=== PATIENT | female | born 1945 | race Caucasian/White ===

== ENCOUNTER 2017-01-17 12:10 | Outpatient (CLI) | payer MEDICARE, OTHER | END 2017-01-17 12:11 | disposition home or self-care (01) | DX: E11.65 Type 2 diabetes mellitus with hyperglycemia (principal) ==

== ENCOUNTER 2017-07-02 13:01 | Emergency (ER) | payer MEDICARE, OTHER ==
--- NOTE | 2017-07-02 14:32 | XRAY Preliminary Report ---
Exam: XR Chest 1 View IMPRESSION: Cardiomegaly. Lungs unchanged. [facility] SITE ID: [id number]
--- NOTE | 2017-07-02 14:34 | XRAY Report ---
EXAM: CHEST RADIOGRAPHY EXAM DATE: 07/02/2017 02:02 PM. CLINICAL HISTORY: Left shoulder pain, SOA. COMPARISON: 11/05/2010. TECHNIQUE: 1 view. FINDINGS: Lungs/Pleura: No significant change. No developing consolidation or edema. Negative for pneumothorax. Mediastinum: Cardiac silhouette is enlarged but unchanged. Other: None. IMPRESSION: Cardiomegaly. Lungs unchanged. [facility] Referring Provider Line: [phone] SITE ID: [id number]
[2017-07-02] MEDS ORDERED: KETOROLAC 60 MG/2 ML VIAL IM STA (14:53)
[2017-07-02] MEDS ORDERED: ONDANSETRON ODT 4 MG TABLET TL STA (14:53)
[2017-07-02] MEDS ORDERED: ACETAMINOPHEN 325 MG TABLET PO STA (14:54)
[2017-07-02] MEDS ORDERED: DEXAMETHASONE 10 MG/ML VIAL PO STA (14:54)
[2017-07-02] MEDS ORDERED: ACETAMINOPHEN 325 MG TABLET PO ONE (15:02)
[2017-07-02] MEDS ORDERED: ONDANSETRON ODT 4 MG TABLET ONE (15:02)
[2017-07-02] MEDS ORDERED: CHERRY SYRUP 10 ML UDC PO ONE (15:03)
[2017-07-02] MEDS ORDERED: DEXAMETHASONE 10 MG/ML VIAL ONE (15:03)
[2017-07-02] MEDS ORDERED: KETOROLAC 60 MG/2 ML VIAL ONE (15:03)
[2017-07-02 15:13] LABS: BASOPHILS # (AUTO) 0.1 10^3/uL (0.0-0.1); BASOPHILS % (AUTO) 0.9 %; EOSINOPHILS # (AUTO) 0.3 10^3/uL (0.0-0.7); EOSINOPHILS % (AUTO) 3.9 %; HCT - HEMATOCRIT 38.9 % (37.0-47.0); HGB - HEMOGLOBIN 12.7 g/dL (12.0-16.0); LYMPHOCYTES # (AUTO) 1.6 10^3/uL (1.5-3.5); LYMPHOCYTES % (AUTO) 20.4 %; MEAN CORPUSCULAR HEMOGLOBIN 31.9 pg (27.0-31.0); MEAN CORPUSCULAR HGB CONC 32.7 g/dL (32.0-36.0); MEAN CORPUSCULAR VOLUME 97.4 fL (81.0-99.0); MEAN PLATELET VOLUME 7.3 fL (7.9-10.8); MONOCYTES # (AUTO) 0.8 10^3/uL (0.0-1.0); MONOCYTES % (AUTO) 10.5 %; NEUTROPHILS # (AUTO) 4.9 10^3/uL (1.5-6.6); NEUTROPHILS % (AUTO) 64.3 %; RED CELL DISTRIBUTION WIDTH 15.1 % (12.0-15.0); UNCORRECTED WHITE BLOOD COUNT 7.6 x10^3/uL; WHITE BLOOD COUNT 7.6 x10^3/uL (4.8-10.8)
[2017-07-02 15:27] LABS: ALBUMIN/GLOBULIN RATIO 1.1 (1.0-2.2); BILIRUBIN,TOTAL 0.6 mg/dL (0.2-1.0); CREATININE 0.8 mg/dL (0.4-1.0); POTASSIUM 4.1 mmol/L (3.5-5.0); TOTAL PROTEIN 6.6 g/dL (6.7-8.2)
--- NOTE | 2017-07-02 17:29 | Ultrasound Preliminary Report ---
Exam: US Duplex Ext Veins Bilateral IMPRESSION: Calf veins not well seen, otherwise unremarkable bilateral lower extremity ultrasound. No evidence of deep venous thrombosis. [facility] SITE ID: [id number]
--- NOTE | 2017-07-02 17:32 | Ultrasound Report ---
EXAM: BILATERAL LOWER EXTREMITY VENOUS ULTRASOUND EXAM DATE: 07/02/2017 05:00 PM. CLINICAL HISTORY: Legs swelling recently; history of cancer/chemo. COMPARISON: None. TECHNIQUE: Real-time sonographic vascular imaging was performed by the heat treating furnace tender through the lower extremities utilizing both color-flow and Doppler spectral analysis. Multiple asset protection representative static i mages were saved for review. FINDINGS: Right: Common Femoral Vein (CFV): Normal. CFV-GSV Junction: Normal. Profunda Femoral Vein (PFV): Normal. Femoral Vein (FV) Prox: Normal. Femoral Vein (FV) Mid: Normal. Femoral Vein (FV) Dist: Normal. Popliteal Vein: Normal. Posterior Tibial Veins: Not well seen Peroneal Veins: Not well seen Left: Common Femoral Vein (CFV): Normal. CFV-GSV Junction: Normal. Profunda Femoral Vein (PFV): Normal. Femoral Vein (FV) Prox: Normal. Femoral Vein (FV) Mid: Normal. Femoral Vein (FV) Dist: Normal. Popliteal Vein: Normal. Posterior Tibial Veins: Not well seen Peroneal Veins: Not well seen Other: None. IMPRESSION: Calf veins not well seen, otherwise unremarkable bilateral lower extremity ultrasound. No evidence of deep venous thrombosis. [facility] Referring Provider Line: [phone] SITE ID: [id number]
[2017-07-02 17:43] VITALS: BP 137/73
--- NOTE | 2017-07-02 17:52 | ED Physician Documentation ---
PD HPI CHEST PAIN - Stated complaint Stated Complaint: LEFT SHOULDER PX - Chief complaint Chief Complaint: General - History obtained from History obtained from: Patient - History of Present Illness Timing - onset: How many days ago (few) Timing - onset during: Light activity Timing - duration: Days (left scapular area for few days) Timing - details: Gradual onset, Still present, Waxing and waning Quality: Aching, Sharp, Pain Location: Left shoulder/arm (scapular area) Radiation: No: Neck Improved by: No: Rest Worsened by: Exertion, Movement (of left shoulder) Associated symptoms: Nausea. No: Shortness of air, Vomiting, Feeling faint / dizzy, Palpitations, Cough Similar symptoms before: Has not had sx before Recently seen: Not recently seen Review of Systems Constitutional: denies: Fever, Chills Nose: denies: Rhinorrhea / runny nose, Congestion Throat: denies: Sore throat Cardiac: reports: Pedal edema. denies: Palpitations, Calf pain Respiratory: denies: Dyspnea, Cough, Wheezing GI: reports: Nausea. denies: Vomiting, Diarrhea : denies: Dysuria, Frequency Skin: denies: Rash, Lesions PD PAST MEDICAL HISTORY - Past Medical History Cardiovascular: Hypertension Endocrine/Autoimmune: None Musculoskeletal: Osteoarthritis, Osteoporosis, Osteopenia, Fatigue, Chronic back pain - Present Medications Home Medications: Ambulatory Orders Medication Instructions Recorded Confirmed Cholecalciferol (Vitamin D3) 6,000 unit PO DAILY 05/16/13 07/02/17 [Vitamin D] Ibuprofen [Motrin] 600 - 800 mg PO Q6HR 05/16/13 07/02/17 Meclizine [Antivert] 12.5 mg PO Q6H PRN 05/16/13 07/02/17 Amlodipine Besylate 2.5 mg PO DAILY 06/13/13 07/02/17 Calcium Carb/Vit D3/Minerals 4 each PO DAILY 06/13/13 07/02/17 [Calcium 1,200 mg Tablet Chew] Carvedilol 6.25 mg PO DAILY 06/13/13 07/02/17 Metformin HCl 1,000 mg PO BID 04/15/14 07/02/17 Insulin Glargine,Hum.rec.anlog 50 unit SQ DAILY 05/13/14 07/02/17 [Lantus] Prochlorperazine [Compazine] 5 mg PO Q6H PRN 05/13/14 07/02/17 Denosumab [Xgeva] 120 mg SUBQ Q90D 02/17/15 07/02/17 Insulin Aspart [Novolog] 5 units SQ AC 02/17/15 07/02/17 Ondansetron HCl [Zofran] 4 - 8 mg PO Q6H PRN 10/01/15 07/02/17 Fulvestrant [Faslodex] 500 mg IM ONCE 03/14/17 07/02/17 Capecitabine [Xeloda] 2,000 mg PO BID MDD 2 weeks on, 1 06/20/17 07/02/17 week off Capecitabine 2,000 mg PO BID 07/02/17 07/02/17 Dexamethasone [Decadron] 4 mg PO DAILY #5 tablet 07/02/17 Methocarbamol [Robaxin] 500 mg PO Q6H PRN #20 tablet 07/02/17 Ondansetron Odt [Zofran] 4 mg TL Q6H PRN #15 tablet 07/02/17 - Allergies Allergies/Adverse Reactions: Allergies Allergy/AdvReac Type Severity Reaction Status Date / Time erythromycin base AdvReac Severe Itching Verified 03/22/13 14:52 [Erythromycin Base] Latex, Natural Rubber AdvReac Mild Itching Verified 03/22/13 14:53 codeine [Codeine] AdvReac Anxiety Verified 03/22/13 14:51 - Social History Does the pt smoke?: No Smoking Status: Never smoker Does the pt have substance abuse?: No - Family History Family history: denies: Venous thromboembolism, Aortic aneursym PD ED PE NORMAL - Vitals Vital signs reviewed: Yes - General General: Alert and oriented X 3, Well developed/nourished - HEENT HEENT: Pharynx benign - Neck Neck: Supple, no meningeal sign, No adenopathy - Cardiac Cardiac: RRR, No murmur - Respiratory Respiratory: Clear bilaterally, Other (some tenderness left suprascapular area to deep palpation of muscle. No skin sores nor rash. ) - Abdomen Abdomen: Soft, Non tender - Extremities Extremities: No tenderness to palpate, Normal ROM s pain, No calf tenderness / cord, Other (bilateral 1+ edema without redness. ) Results - Vitals Vitals: Oxygen O2 Source Nasal cannula Oxygen Flow Rate 2 - Labs Labs: Laboratory Tests 07/02/17 07/02/17 07/02/17 15:06 15:06 15:06 WBC 7.6 RBC 4.00 L Hgb 12.7 Hct 38.9 MCV 97.4 MCH 31.9 H MCHC 32.7 RDW 15.1 H Plt Count 132 MPV 7.3 L Neut # 4.9 Lymph # 1.6 [place] # 0.8 Eos # 0.3 Baso # 0.1 Absolute Nucleated RBC 0.00 Nucleated RBCs 0.0 Sodium 136 Potassium 4.1 Chloride 97 L Carbon Dioxide 34 H Anion Gap 5.0 L BUN 15 Creatinine 0.8 Estimated GFR (MDRD) 71 L Glucose 199 H Calcium 9.0 Total Bilirubin 0.6 AST 27 ALT 18 Alkaline Phosphatase 73 B-Natriuretic Peptide 84 Total Protein 6.6 L Albumin 3.4 Globulin 3.2 Albumin/Globulin Ratio 1.1 Lipase 21 L - Rads (name of study) duplex legs Radiology: Prelim report reviewed (no DVTs) PD MEDICAL DECISION MAKING - ED course Complexity details: considered differential (no rash. CXR appears okay. Presume muscular or could be pleurisy since does hurt for breathing. ), d/w patient Departure - Departure Disposition: 01 Home, Self Care Clinical Impression: Pain of left scapula, Pleurisy Condition: Stable Record reviewed to determine appropriate education?: Yes Instructions: ED Chest Pain Pleurisy Follow-Up: Sahil Hatfield DO [Primary Care Provider] - Leonard Bonilla MD [Physician No Access] - Prescriptions: Dexamethasone [Decadron] 4 mg PO DAILY #5 tablet Methocarbamol [Robaxin] 500 mg PO Q6H PRN #20 tablet PRN Reason: Spasms Ondansetron Odt [Zofran] 4 mg TL Q6H PRN #15 tablet PRN Reason: Nausea / Vomiting Comments: Continue the ibuprofen 400-600 mg 2-3 times a day. Add Tylenol 650 mg every 4- 6 hours if needed for pain. For nausea you can use ondansetron every 6 hours. Decadron anti-inflammatory daily for 5 more days and add methocarbamol for stiffness spasms as this seems to have some muscular component in the scapula area. There may be some inflammation around the lung to comfort as well. However it sounds mostly muscular. Follow-up with Dr. Benitez. Discharge Date/Time: 07/02/17 18:27
== END 2017-07-02 18:27 | disposition home or self-care (01) ==
LOC: ED 13:01
DX: M25.512 Pain in left shoulder (principal); R09.1 Pleurisy; I10 Essential (primary) hypertension
CPT/HCPCS: 36415; 71010; 80053; 83690; 83880; 85025; 93970; 96372; 99283; A9270; Q0162

== ENCOUNTER 2017-07-11 13:31 | Outpatient (CLI) | payer MEDICARE, OTHER ==
[2017-07-11] MEDS ORDERED: IOPAMIDOL-300 100 ML VIAL IVP ONE (15:08)
--- NOTE | 2017-07-11 15:43 | CT Report ---
CT CHEST WITH CONTRAST: 07/11/2017 CLINICAL INDICATION: Metastatic breast cancer, shortness of breath. TECHNIQUE: Axial CT images of the chest were obtained with 100 mL Isovue-[address] intravenously[address] No prev ious CT is available for comparison. In accordance with CT protocol optimization, one or more of the following dose reduction techniques w ere utilized for this exam: automated exposure control, adjustment of mA and/or KV based on patient size, or use of iterative reconstructive technique. FINDINGS: The heart and great vessels demonstrate mild atherosclerotic calcification. No hilar or m ediastinal lymphadenopathy is seen. There is mild right basilar atelectasis, with a trace right effu marino present. No pulmonary nodule or mass lesion is seen. No pneumothorax. Osseous structures demo nstrate degenerative changes. Limited evaluation of upper abdominal structures demonstrates normal a drenal glands. IMPRESSION: MILD RIGHT BASILAR ATELECTASIS WITH A SMALL RIGHT EFFUSION. NO EVIDENCE OF METASTATIC D ISEASE. JOB #: [id number] EXT JOB #:[id number]
== END 2017-07-11 13:32 | disposition home or self-care (01) ==
LOC: DI 13:31
PROVIDERS: ATTEND Family Medicine
DX: R06.02 Shortness of breath (principal); I51.7 Cardiomegaly; I35.0 Nonrheumatic aortic (valve) stenosis; C50.919 Malignant neoplasm of unspecified site of unspecified female breast; C79.9 Secondary malignant neoplasm of unspecified site; J98.11 Atelectasis; J90 Pleural effusion, not elsewhere classified
CPT/HCPCS: 71260; 93306; Q9967

== ENCOUNTER 2017-07-25 13:58 | Outpatient (CLI) | payer MEDICARE, OTHER ==
[2017-07-25 14:41] LABS: CHOL/HDL RATIO 3.9 (<4.4); CHOLESTEROL 211 mg/dL; HDL CHOLESTEROL 54 mg/dL; LDL/HDL RATIO 2.2 (<4.4); TRIGLYCERIDES 179 mg/dL; VLDL CHOLESTEROL 36 mg/dL
[2017-07-25 15:16] LABS: HEMOGLOBIN A1C 0.93 g/dL
== END 2017-07-25 13:59 | disposition home or self-care (01) ==
LOC: LAB 13:58
PROVIDERS: ATTEND Family Medicine
DX: E11.65 Type 2 diabetes mellitus with hyperglycemia (principal)
CPT/HCPCS: 36415; 80061; 83036

== ENCOUNTER 2017-07-25 14:01 | Outpatient (CLI) | payer MEDICARE, OTHER ==
--- NOTE | 2017-07-25 15:54 | XRAY Report ---
RIGHT HIP AND PELVIS: 07/25/2017 CLINICAL INDICATION: Arthritis. FINDINGS: Frontal view of the hips and pelvis and frogleg lateral view of the right hip demonstrates mild right and severe left hip osteoarthritis. There is no evidence of acute fracture or dislocatio n. IMPRESSION: MILD RIGHT HIP OSTEOARTHRITIS. JOB #: [id number] EXT JOB #:[id number]
== END 2017-07-25 14:02 | disposition home or self-care (01) ==
LOC: DI 14:01
PROVIDERS: ATTEND Family Medicine
DX: M16.11 Unilateral primary osteoarthritis, right hip (principal)

== ENCOUNTER 2017-07-29 09:08 | Outpatient (CLI) | payer MEDICARE, OTHER ==
--- NOTE | 2017-07-29 15:31 | Nuclear Medicine Report ---
EXAM: BONE SCAN EXAM DATE: 07/29/2017 01:25 PM. CLINICAL HISTORY: History of metastatic breast cancer. Diffuse bone pain. COMPARISON: Bone scan 11/02/2013. Pelvis and right hip radiographs 07/25/2017. Chest CT 07/11/2017. TECHNIQUE: Following the intravenous administration of 30.1 mCi of technetium 99m MDP and an appropri ate delay, a whole-body scan was performed in anterior and posterior projections. FINDINGS: Exam Quality: Normal overall osseous radiotracer uptake. Physiological tracer uptake in bilateral col lecting systems. Skull: No focal uptake. Thorax: There is intensely increased uptake in the left clavicular head corresponding to a healing fr acture on CT. There is a focus of increased uptake in the left posterior fifth rib and another in the left posterior ninth rib corresponding with a mixed lytic and sclerotic lesion on CT. Pelvis: There is intensely increased uptake in the left hip corresponding with advanced osteoarthriti c changes. There is heterogeneously increased uptake in the sacrum. Spine: There is intensely increased uptake in L4. There is a smaller focus of moderate uptake on the left side of L5. Extremities: There is intensely increased uptake in the right humeral head. Increased uptake in the r ight greater than left knees, right midfoot, and left great toe MTP joint consistent with degenerativ e etiology. IMPRESSION: Multifocal skeletal metastatic disease. [facility] Referring Provider Line: [phone] SITE ID: [id number]
== END 2017-07-29 09:09 | disposition home or self-care (01) ==
LOC: DI 09:08
PROVIDERS: ATTEND Internal Medicine Hematology & Oncology
DX: C79.51 Secondary malignant neoplasm of bone (principal); C50.912 Malignant neoplasm of unspecified site of left female breast
CPT/HCPCS: 78306; A9503

== ENCOUNTER 2017-09-10 22:37 | Emergency (ER) | payer MEDICARE, OTHER ==
[2017-09-10] MEDS ORDERED: KETAMINE 500 MG/10 ML VIAL IVP STA (22:55)
[2017-09-10] MEDS ORDERED: ONDANSETRON 4 MG/2 ML VIAL IVP STA (22:55)
[2017-09-10] MEDS ORDERED: fentaNYL 50 MCG PATCH TOP SCH (23:00)
[2017-09-10] MEDS ORDERED: KETAMINE 500 MG/10 ML VIAL ONE (23:12)
[2017-09-10] MEDS ORDERED: ONDANSETRON 4 MG/2 ML VIAL ONE (23:12)
[2017-09-10] MEDS ORDERED: fentaNYL 50 MCG PATCH TOP ONE (23:18)
--- NOTE | 2017-09-10 23:27 | ED Physician Documentation ---
History of Present Illness - Stated complaint Stated Complaint: BACK/LEG PX - Chief complaint Chief Complaint: Ext Problem - History obtained from History obtained from: Patient, Family - History of Present Illness Timing: Chronic Pain level max: 10 Pain level now: 10 - Additonal information Additional information: Patient is a 71 year old female with a history of metastatic breast CA with mets to her bones who is presenting to the emergency department for back and leg pain. Patient states that she tries to be brave but the pain just got too out of control and she couldn't handle it anymore. Patient states that she has an allergy to codeine and all opiates so pain management has been difficult. Review of Systems Constitutional: denies: Fever, Chills Eyes: denies: Decreased vision, Photophobia Ears: reports: Reviewed and negative Nose: reports: Reviewed and negative Throat: denies: Dental pain / toothache, Oral lesions / sores Cardiac: denies: Chest pain / pressure, Palpitations Respiratory: denies: Dyspnea, Cough, Wheezing GI: reports: Nausea. denies: Abdominal Pain, Vomiting, Constipation, Diarrhea : reports: Reviewed and negative Skin: denies: Rash, Lesions, Abrasion (s), Laceration (s) Musculoskeletal: reports: Back pain, Extremity pain, Joint pain Neurologic: denies: Generalized weakness, Focal weakness, Numbness PD PAST MEDICAL HISTORY - Past Medical History Cardiovascular: Hypertension Endocrine/Autoimmune: None Musculoskeletal: Osteoarthritis, Osteoporosis, Osteopenia, Fatigue, Chronic back pain - Present Medications Home Medications: Ambulatory Orders Medication Instructions Recorded Confirmed Cholecalciferol (Vitamin D3) 6,000 unit PO DAILY 05/16/13 08/29/17 [Vitamin D] Ibuprofen [Motrin] 600 - 800 mg PO Q6HR 05/16/13 08/29/17 Meclizine [Antivert] 12.5 mg PO Q6H PRN 05/16/13 08/29/17 Amlodipine Besylate 2.5 mg PO DAILY 06/13/13 08/29/17 Calcium Carb/Vit D3/Minerals 4 each PO DAILY 06/13/13 08/29/17 [Calcium 1,200 mg Tablet Chew] Carvedilol 6.25 mg PO DAILY 06/13/13 08/29/17 Metformin HCl 1,000 mg PO BID 04/15/14 08/29/17 Insulin Glargine,Hum.rec.anlog 50 unit SQ DAILY 05/13/14 08/29/17 [Lantus] Prochlorperazine [Compazine] 5 mg PO Q6H PRN 05/13/14 08/29/17 Denosumab [Xgeva] 120 mg SUBQ Q90D 02/17/15 08/29/17 Insulin Aspart [Novolog] 5 units SQ AC 02/17/15 08/29/17 Ondansetron HCl [Zofran] 4 - 8 mg PO Q6H PRN 10/01/15 08/29/17 Fulvestrant [Faslodex] 500 mg IM ONCE 03/14/17 08/29/17 Capecitabine 2,000 mg PO BID 07/02/17 08/29/17 Dexamethasone [Decadron] 4 mg PO DAILY #5 tablet 07/02/17 08/29/17 Methocarbamol [Robaxin] 500 mg PO Q6H PRN #20 tablet 07/02/17 08/29/17 Sulfasalazine [Sulfazine] 1,000 mg PO BID 07/25/17 08/29/17 Tramadol HCl 1 - 2 tab Q4H PRN 07/29/17 08/29/17 Ondansetron Odt [Zofran] 4 mg TL Q6H PRN #20 tablet 09/11/17 Tramadol HCl 50 mg PO Q4H PRN #20 tablet 09/11/17 fentaNYL [Fentanyl 50mcg patch] 1 each TD ONCE PRN #5 patch.td72 09/11/17 - Allergies Allergies/Adverse Reactions: Allergies Allergy/AdvReac Type Severity Reaction Status Date / Time erythromycin base AdvReac Severe Itching Verified 09/10/17 23:49 [Erythromycin Base] ketamine AdvReac Severe Hallucinati Verified 09/10/17 23:50 ons Latex, Natural Rubber AdvReac Mild Itching Verified 09/10/17 23:49 codeine [Codeine] AdvReac Anxiety Verified 09/10/17 23:49 - Social History Does the pt smoke?: No Smoking Status: Never smoker Does the pt have substance abuse?: No PD ED PE NORMAL - Vitals Vital signs reviewed: Yes - General General: Alert and oriented X 3 - HEENT HEENT: Atraumatic, PERRL, Moist mucous membranes - Neck Neck: Supple, no meningeal sign, No bony TTP - Cardiac Cardiac: RRR, No murmur - Respiratory Respiratory: No respiratory distress - Abdomen Abdomen: Soft - Derm Derm: Normal color, No rash - Neuro Neuro: Alert and oriented X 3, No motor deficit, No sensory deficit, Normal speech - Psych Psych: Normal mood PD ED PE EXPANDED - General General: Alert, Well developed/nourished, In Pain - Back Back: Vertebral tenderness (no step offs but generalized tenderness to palpation ) - Extremities Extremities: Left hip (generalized tenderness to palpation of left hip and left leg with no gross deformity. ), Left thigh Results - Vitals Vitals: Vital Signs - 24 hr 09/10/17 09/10/17 09/10/17 22:43 23:15 23:30 Temperature 36.5 C Heart Rate 126 H 114 H 100 Respiratory 22 21 18 Rate Blood Pressure 169/103 H 150/104 H 151/88 H O2 Saturation 93 98 97 09/11/17 09/11/17 09/11/17 00:00 01:11 02:02 Temperature 36.9 C Heart Rate 94 98 101 H Respiratory 15 16 16 Rate Blood Pressure 121/69 137/79 H 128/69 O2 Saturation 97 91 L 97 Oxygen O2 Source Room air PD MEDICAL DECISION MAKING - ED course Complexity details: reviewed old records, reviewed results, re-evaluated patient , considered differential, d/w patient, d/w family ED course: Patient was seen and examined at bedside. Due to patient's allergy a low dose of ketamine (0.25mg/kg) was ordered. After about 20 mg patient was dissociative but stated that she felt like she was dying and did not like the way it made her feel. Patient was treated with zofran and given a fentanyl patch since she was going to try that as an outpatient. Patient was observed. Patient had no reaction to the medication but was still in pain and was treated with toradol and fentanyl 50mcg IV. Patient tolerated the treatment well and was observed. Patient stated that her pain was much better and was asking to go home. Patient required no further work up at this time and was stable for discharge with outpatient follow up. Departure - Departure Disposition: 01 Home, Self Care Clinical Impression: Bone metastasis Condition: Good Instructions: Bone Metastasis Follow-Up: Sahil Hatfield DO [Primary Care Provider] - Within 1 week Prescriptions: fentaNYL [Fentanyl 50mcg patch] 1 each TD ONCE PRN #5 patch.td72 PRN Reason: Pain Ondansetron Odt [Zofran] 4 mg TL Q6H PRN #20 tablet PRN Reason: Nausea / Vomiting Tramadol HCl 50 mg PO Q4H PRN #20 tablet PRN Reason: Pain Comments: Your symptoms today are being caused by your metastatic disease. It is part of the progression of the disease and likely will not get better. It is important that you follow up with your doctor for continual pain management. You are being prescribed narcotics so you cannot drive, drink alcohol or operate heavy machinery while taking it. they can also cause constipation so you should drink plenty of water and take over the counter stool softeners if you are going to continually take them. You may return to the emergency department at any time for new, worsening or uncontrollable symptoms. Discharge Date/Time: 09/11/17 02:02
[2017-09-11] MEDS ORDERED: KETOROLAC 60 MG/2 ML VIAL IVP STA (00:26)
[2017-09-11] MEDS ORDERED: fentaNYL 100 MCG/2 ML VIAL IVP STA (00:26)
[2017-09-11] MEDS ORDERED: KETOROLAC 15 MG/ML VIAL ONE (00:49)
[2017-09-11] MEDS ORDERED: fentaNYL 100 MCG/2 ML VIAL ONE (00:50)
[2017-09-11 02:02] VITALS: BP 128/69
== END 2017-09-11 02:02 | disposition home or self-care (01) ==
LOC: ED 22:37
DX: C79.51 Secondary malignant neoplasm of bone (principal); C50.919 Malignant neoplasm of unspecified site of unspecified female breast; I10 Essential (primary) hypertension; Z79.4 Long term (current) use of insulin
CPT/HCPCS: 96374; 96375; 96376; 99283; 99284; A9270

== ENCOUNTER 2017-10-26 17:24 | Outpatient (CLI) | payer MEDICARE, OTHER ==
--- NOTE | 2017-10-26 17:29 | CONSULTATION NOTE ---
Palliative Care Follow Up - Referral Referring Provider: Dr. Bonilla Time of Visit: 09-25 Referral setting: Home (Home visit secondary considerable and taxing effort for the patient to leave the home as well as patient's severe distress with sitting , also to be able to provide family counseling in the context of her and her .) Referral Reason: Metastitic Breast Cancer/pain of neoplastic origin - Information Sources Records reviewed: Previous records reviewed History/Review of Systems obtained from: Patient Exam limitations: No limitations - History of Present Illness Update Brief HPI Update: This is a 71-year-old woman with metastatic breast cancer to the sacrum, right iliac bone, left ninth rib, right humeral head, and lumbar spine. She has recently completed radiation, she does report she is starting to receive some benefits from this. Last time I saw her on 10/10 she was in acute pain with severe functional decline. She is starting to get some relief, and visiting her home today though, related to the difficulty for her to be sitting up. Her pain is exacerbated with sitting and any pressure on that lower spine, she gets numbness, and is unable to take any opioid medications without severe nausea and vomiting. She was initiated on Lyrica 50 mg, she found that to use sedating , and written a prescription for 25 mg unfortunately her insurance/base will not cover that. She reports she has developed some tolerance to this and is taking this at bedtime. We also initiated her on meloxicam for she has bilateral shoulder pain and had been taking ibuprofen, she is found this to be quite effective. Her other presenting symptom is numbness with any kind of pressure sitting, she is most comfortable in position of being somewhat semi- reclined, when she lays flat she has increased pain as well. She does use methocarbonal for spasms, using only intermittently because of sedation as well. She has started physical therapy, twice a week, is finding this actually quite helpful and is starting to progress functional walking, and able to get back and forth to bathroom in home setting. Her understanding of her disease is that she is coming to an end as far as her treatment options, she is on every other week Xeloda, low dose. She has tolerated this fairly well. Her other presenting symptom is fatigue. Social History - Living Situation Living arrangement: At home Living Situation: With spouse/s.o. Support System: Her Richie, is her main caregiver. She is feeling quite distressed at being an increased burden. We did discuss if wanted to explore increased caregiving help, they feel currently are managing it without any difficulty. She does have 3 sons, 4 grandkids, and is very close to her family. Medications/Allergies - Medications Home Medications: Ambulatory Orders Medication Instructions Recorded Confirmed Cholecalciferol (Vitamin D3) 6,000 unit PO DAILY 05/16/13 10/27/17 [Vitamin D] Amlodipine Besylate 2.5 mg PO DAILY 06/13/13 10/27/17 Calcium Carb/Vit D3/Minerals 4 each PO DAILY 06/13/13 10/27/17 [Calcium 1,200 mg Tablet Chew] Carvedilol 6.25 mg PO DAILY 06/13/13 10/27/17 Metformin HCl 1,000 mg PO BID 04/15/14 10/27/17 Insulin Glargine,Hum.rec.anlog 50 unit SQ DAILY 05/13/14 10/27/17 [Lantus] Prochlorperazine [Compazine] 5 mg PO Q6H PRN 05/13/14 10/27/17 Insulin Aspart [Novolog] 5 units SQ AC 02/17/15 10/27/17 Ondansetron HCl [Zofran] 4 - 8 mg PO Q6H PRN 10/01/15 10/27/17 Capecitabine 2,000 mg PO BID 07/02/17 10/27/17 Meloxicam 7.5 mg PO DAILY 10/10/17 10/27/17 Pregabalin [Lyrica] 50 mg PO QPM 10/10/17 10/27/17 - Allergies Allergies/Adverse Reactions: Allergies Allergy/AdvReac Type Severity Reaction Status Date / Time erythromycin base AdvReac Severe Itching Verified 09/10/17 23:49 [Erythromycin Base] ketamine AdvReac Severe Hallucinati Verified 09/10/17 23:50 ons Latex, Natural Rubber AdvReac Mild Itching Verified 09/10/17 23:49 codeine [Codeine] AdvReac Anxiety Verified 09/10/17 23:49 Review of Systems - Constitutional Constitutional: reports: Fatigue, Weight stable - Ears, Nose & Throat Ears, Nose & Throat: reports: Dry mouth (worsening over last couple of weeks; ; unclear if xeloda and/or lyrica) - Cardiovascular Cardiovascular: reports: Exertional dyspnea, Decr. exercise tolerance - Respiratory Respiratory: reports: SOB with exertion - Gastrointestinal Gastrointestinal: reports: Diarrhea (intermittent with oral chemo), Nausea ( occasionally;), Good appetite. denies: Reflux/heartburn - Genitourinary Genitourinary: reports: Frequency, Urgency, Other (recent treated UTI; feels symptoms improved) - Musculoskeletal Musculoskeletal: reports: Muscle pain, Back pain, Muscle aches, Stiffness, Limited range of motion, Muscle weakness, Joint pain (bilateral shoulders), Assistive devices (using walker), Other (two flights of stairs to get in and out of house; going to PT twice a week very encouraged with progress) - Integumentary Integumentary: reports: Dryness - Neurological Neurological: reports: General weakness, Dizziness, Numbness (bilateral leg; right greater than left; worsening with standing or more activity) - Psychiatric Psychiatric: reports: Depression, Anxiety - Endocrine Endocrine: reports: Diabetes type 2 - Hematologic/Lymphatic Hematologic/Lymphatic: reports: Anemia, Recurrent infections (utis) - All Other Systems All Other Systems: reports: Reviewed and negative Physical Exam - Vital Signs Pulse Rate: 72 Respiratory Rate: 18 Blood Pressure: 132/64 - Physical Exam General Appearance: positive: Alert, Moderate distress Eyes Bilateral: positive: Normal inspection ENT: positive: Other (bright red and beefy; no s/s candidiasis or lesions) Neck: positive: Trachea midline Cardiovascular: positive: Regular rate & rhythm Respiratory: positive: No respiratory distress, Diminished in bases (anteriorly) Abdomen: positive: Soft, Nml bowel sounds, Obese Skin: positive: Pallor, Dryness Extremities: positive: Pedal edema (sight LE) Neurologic/Psychiatric: positive: Oriented x3, Mood/affect nml Palliative Care - POLST Patient has POLST: No Pain: Pain improved Tiredness/Fatigue: Moderate (4-6) Drowsiness/Sedation: Mild (1-3) Nausea: Mild (1-3) Depression: Mild (1-3) Anxiety: Moderate (4-6) Dyspnea: Moderate (4-6) Anorexia: Mild (1-3) Sleep: Variable sleep pattern Constipation: No Feelings of wellbeing/Perceived Quality of Life: Fair, Acceptable, Improved Performance Status: Patient currently able to bathe and shower on own, does have set up. Has been does assist with dressing and other ADLs as needed. Her goal is to try and ambulate more regularly with a walker, this is challenging as far as offloading weight with her bilateral shoulder pain. As she does use a wheelchair when she goes out, and big. She does need to get up and down 2 stories of stairs in and out of her house. She does spend most of her time in a recliner. Though ambulating to the bathroom. I would put her at a palliative care performance status of 50% - Palliative Care Discussion: Patient spent time just sharing her story, she has with her breast cancer and metastatic disease had a series of unfortunate events. Her understanding is she currently does not have it in any major organs, but mostly in the bones. She reports she is not afraid of dying but more fearful of the process. She recently lost her mother and is very tender in thinking about and dying. She was very active physical person, She likes the outdoors, and now she is mostly housebound. She does still enjoy and find comfort and spending time with family, but is distressed at needing to stay reclined regulating to her pain. This has been a long slow process per her perception, she does recognize she is getting closer, and more limited options. She still feels her quality of life currently though compromised is acceptable. She reports she has done some advanced directives with her railway engineer, this includes not wanting to prolong her suffering etc. Introduced the POLST form, and the intent, discussed it in the context of her current condition, and wishes. Results - Lab Results Lab results reviewed: Yes Impression and Recommendations - Palliative Care Impression: This is a 71-year-old woman with metastatic breast cancer to multiple bones. She recently finished radiation to her lower lumbar spine and right humeral head. Her pain has improved, as well as her functional status, she is complex as far as her pain management given her multiple opioid intolerances. Her goals remain continuing treatment as long as benefits outweigh burdens and she has acceptable quality of life. Recommendations/Counseling Done: 1. Pain of neoplastic origin. Patient with fairly poorly controlled blood sugars, as far as adding any steroids for treatment of her bony pain. Currently she has received benefit from the meloxicam 7.5 mg daily, has increased tolerance for the Lyrica 50 mg at bedtime. Unfortunately her insurance will not cover Lyrica. We did discuss in the context of other options for neuropathic pain the gabapentin, which is generic and most likely covered at the [facility]. She is somewhat hesitant to switch given the effectiveness currently but will run out in a few weeks as far as long-term use. The strategy would be she will start in a couple weeks and gabapentin 100 mg at bedtime for 4 days and then increase it to every 4 days by 100 mg up to 300 mg. This will allow her to titrate to her tolerance that she is quite sensitive to medications. She will notify me me if she has any difficulty obtaining this prescription. We also discussed her goal which is to be able to sit up at dinner particularly [place] dinner to enjoy with her family. Currently she gets increased spasms numbness and pain with sitting most likely attributed to nerve compression. She will try acetaminophen for breakthrough pain, as well as a half of methyl carbinol for spasms. She will trial this several times before . 2. Cystitis, she reports her UTI eye symptoms are better with completion of the antibiotic. She does have intermittent incontinence, she does feel like she is currently emptying her bladder. Am concerned about neurogenic bladder. 3. Fatigue, this is multifactorial in origin. She is working with physical therapy and trying to increase her endurance, she is spending some concentrated effort and increasing her time up walking back and forth to the bathroom. She is quite limited by her pain. 4. Mucositis. Her tongue is beefy red, no signs or symptoms of candidiasis or lesions. I suspect it is related to her Xeloda. We did discuss normal saline rinses as well as managing her symptoms of dry mouth counseling done. 5. Advanced care planning. I did request copy of her DPOAE and current directives, introduce the [facility], did discuss at length her goals of care and her concerns regarding her end-of-life wishes. Time Spent: 60 minutes with greater than 50% of this done in counseling regarding pain and symptom management, anticipatory guidance, and psychosocial support.
== END 2017-10-26 17:25 | disposition home or self-care (01) ==
LOC: PC 17:24
PROVIDERS: ATTEND Nurse Practitioner Adult Health
DX: Z51.5 Encounter for palliative care (principal); G89.3 Neoplasm related pain (acute) (chronic); C50.919 Malignant neoplasm of unspecified site of unspecified female breast; C79.51 Secondary malignant neoplasm of bone; R53.83 Other fatigue; R53.1 Weakness; K12.30 Oral mucositis (ulcerative), unspecified; R35.0 Frequency of micturition; R39.15 Urgency of urination; E11.9 Type 2 diabetes mellitus without complications; Z87.440 Personal history of urinary (tract) infections; Z92.3 Personal history of irradiation; Z79.4 Long term (current) use of insulin; Z79.84 Long term (current) use of oral hypoglycemic drugs; Z79.899 Other long term (current) drug therapy
CPT/HCPCS: 99350

== ENCOUNTER 2017-11-23 10:50 | Outpatient (CLI) | payer MEDICARE, OTHER | END 2017-11-23 10:51 | LOC: LAB.WCP 10:50 | PROVIDERS: ATTEND Physician Assistant Medical | DX: B97.89 Other viral agents as the cause of diseases classified elsewhere (principal) | CPT/HCPCS: 87275; 87276 ==

== ENCOUNTER 2017-12-02 16:10 | Inpatient (IN) | payer MEDICARE, OTHER ==
[2017-12-02] MEDS ORDERED: LEVALBUTEROL 1.25 MG/3 ML NEB INH STA ×2 (16:58→18:32)
[2017-12-02] MEDS ORDERED: DEXAMETHASONE 10 MG/ML VIAL PO STA (17:04)
[2017-12-02] MEDS ORDERED: CHERRY SYRUP 10 ML UDC PO ONE (17:20)
--- NOTE | 2017-12-02 18:04 | XRAY Report ---
EXAM: CHEST RADIOGRAPHY EXAM DATE: 12/02/2017 05:23 PM. CLINICAL HISTORY: Cough with dyspnea. COMPARISON: 07/02/2017. TECHNIQUE: 2 views. FINDINGS: Lungs/Pleura: No focal opacities evident. No pleural effusion. No pneumothorax. Normal volumes. Mediastinum: Heart and mediastinal contours are unremarkable. Other: None. IMPRESSION: Normal 2-view chest radiography. [facility] Referring Provider Line: [phone] SITE ID: [id number]
--- NOTE | 2017-12-02 18:21 | ED Physician Documentation ---
PD HPI DYSPNEA - Stated complaint Stated Complaint: DIFF BREATHING - Chief complaint Chief Complaint: Resp - History obtained from History obtained from: Patient - History of Present Illness Timing - onset: How many weeks ago (1) Timing - details: Gradual onset, Still present in ED Improved by: O2 Worsened by: Coughing Associated symptoms: Fever, Cough, Wheezing Recently seen: Clinic (Seen by PMD 4 days ago.) - Treatment prior to arrival Treatment prior to arrival: albuterol nebulizer - Additional information Additional information: The patient is a 71-year-old diabetic female with history of asthma who presents with dyspnea that has been getting worse over the past week. She has had fever, productive cough, and frontal headache. She was seen by her primary physician 4 days ago and had a negative flu swab. She has been using albuterol nebulizer at home as well as supplemental oxygen at 2 L by nasal cannula without relief. On further review of systems she denies chest pain, sore throat , GI symptoms, or dysuria. Past medical history, in addition to type 2 diabetes and asthma, is significant for breast cancer with bony metastases, diagnosed 12 years ago. She is status post mastectomy, radiation therapy, and chemotherapy. She also has history of aortic stenosis. Review of Systems Constitutional: reports: Fever, Myalgias, Fatigue Ears: denies: Tinnitus/ringing Nose: reports: Congestion Throat: denies: Sore throat Cardiac: denies: Chest pain / pressure Respiratory: reports: Dyspnea, Cough, Wheezing GI: denies: Abdominal Pain, Nausea, Vomiting, Diarrhea : denies: Dysuria Skin: denies: Rash Musculoskeletal: reports: Back pain (Chronically). denies: Extremity swelling Neurologic: reports: Headache. denies: Focal weakness, Numbness PD PAST MEDICAL HISTORY - Past Medical History Cardiovascular: Hypertension Respiratory: Asthma Endocrine/Autoimmune: Type 2 diabetes Musculoskeletal: Osteoarthritis, Osteoporosis, Osteopenia, Fatigue, Chronic back pain Other Past Medical History: Breast CA with bony mets, diagnosed 12 years ago. - Past Surgical History /COLOR BUFFER: Mastectomy - Present Medications Home Medications: Ambulatory Orders Medication Instructions Recorded Confirmed Cholecalciferol (Vitamin D3) 6,000 unit PO DAILY 05/16/13 12/02/17 [Vitamin D] Amlodipine Besylate 2.5 mg PO DAILY 06/13/13 12/02/17 Calcium Carb/Vit D3/Minerals 4 each PO DAILY 06/13/13 12/02/17 [Calcium 1,200 mg Tablet Chew] Carvedilol 6.25 mg PO DAILY 06/13/13 12/02/17 Metformin HCl 1,000 mg PO BID 04/15/14 12/02/17 Insulin Glargine,Hum.rec.anlog 50 unit SQ DAILY 05/13/14 12/02/17 [Lantus] Prochlorperazine [Compazine] 5 mg PO Q6H PRN 05/13/14 12/02/17 Insulin Aspart [Novolog] 5 units SQ AC 02/17/15 12/02/17 Ondansetron HCl [Zofran] 4 - 8 mg PO Q6H PRN 10/01/15 12/02/17 Capecitabine 2,000 mg PO BID 07/02/17 12/02/17 Meloxicam 7.5 mg PO DAILY 10/10/17 12/02/17 Pregabalin [Lyrica] 50 mg PO QPM 10/10/17 12/02/17 Acetaminophen [Tylenol] 2 tab PO Q6HR PRN 11/21/17 12/02/17 - Allergies Allergies/Adverse Reactions: Allergies Allergy/AdvReac Type Severity Reaction Status Date / Time erythromycin base AdvReac Severe Itching Verified 12/02/17 16:36 [Erythromycin Base] ketamine AdvReac Severe Hallucinati Verified 12/02/17 16:36 ons Latex, Natural Rubber AdvReac Mild Itching Verified 12/02/17 16:36 codeine [Codeine] AdvReac Anxiety Verified 12/02/17 16:36 - Social History Does the pt smoke?: No Smoking Status: Never smoker Does the pt drink ETOH?: No Does the pt have substance abuse?: No - Immunizations Immunizations are current?: Yes - POLST Patient has POLST: No PD ED PE NORMAL - Vitals Vital signs reviewed: Yes (Hypertensive, tachycardic, with low pulse oximetry of 85% room air.) - General General: Alert and oriented X 3, Other (Morbidly obese.) - HEENT HEENT: Atraumatic, EOMI, Moist mucous membranes, Pharynx benign - Neck Neck: Supple, no meningeal sign, No adenopathy, No JVD - Cardiac Cardiac: No murmur, Other (Rapid rate, regular rhythm.) - Respiratory Respiratory: Other (Obvious respiratory distress, with tachypnea and bilateral expiratory wheezing with prolonged expiratory phase. No rales or rhonchi. Speaks in few word sentences.) - Abdomen Abdomen: Soft, Non tender - Back Back: No CVA TTP - Derm Derm: No rash - Extremities Extremities: No edema, No calf tenderness / cord - Neuro Neuro: Alert and oriented X 3, No motor deficit Results - Vitals Vitals: Vital Signs - 24 hr 12/02/17 12/02/17 12/02/17 16:32 16:37 18:02 Temperature 37.5 C Heart Rate 114 H 108 H Respiratory 21 18 Rate Blood Pressure 154/81 H O2 Saturation 85 L 92 12/02/17 12/02/17 12/02/17 18:51 19:30 19:34 Temperature 38.0 C H Heart Rate 103 H 104 H Respiratory 22 24 Rate Blood Pressure 132/82 H O2 Saturation 93 Oxygen O2 Source Nasal cannula - Labs Labs: Laboratory Tests 12/02/17 12/02/17 12/02/17 16:25 16:40 16:40 WBC RBC Hgb Hct MCV MCH MCHC RDW Plt Count MPV Neut # Lymph # [place] # Eos # Baso # Absolute Nucleated RBC Nucleated RBC % Sodium 132 L Potassium 3.9 Chloride 94 L Carbon Dioxide 26 Anion Gap 12.0 BUN 9 Creatinine 0.7 Estimated GFR (MDRD) 83 L Glucose 240 H Calcium 8.8 Total Bilirubin 1.2 H AST 39 ALT 22 Alkaline Phosphatase 74 B-Natriuretic Peptide 115 H Total Protein 6.6 L Albumin 3.0 L Globulin 3.6 Albumin/Globulin Ratio 0.8 L Lipase 20 L Urine Color ORANGE Urine Clarity CLOUDY Urine pH 6.0 Ur Specific [place] >=1.030 H Urine Protein TRACE Urine Glucose (UA) NEGATIVE Urine Ketones NEGATIVE Urine Occult Blood TRACE-INTA Urine Nitrite POSITIVE H Urine Bilirubin NEGATIVE Urine Urobilinogen 0.2 (NORMAL) Ur Leukocyte Esterase SMALL H Urine RBC 11-25 H Urine WBC >25 H Ur Squamous Epith Cells FEW Squamous Urine Bacteria Many H Ur Microscopic Review INDICATED Urine Culture Comments INDICATED Influenza A (Rapid) Influenza B (Rapid) Influenza Types A,B Ag 12/02/17 12/02/17 16:40 18:24 WBC 12.0 H RBC 4.29 Hgb 13.5 Hct 42.5 MCV 99.2 H MCH 31.6 H MCHC 31.8 L RDW 15.8 H Plt Count 213 MPV 7.8 L Neut # 9.2 H Lymph # 1.5 [place] # 1.1 H Eos # 0.1 Baso # 0.1 Absolute Nucleated RBC 0.01 Nucleated RBC % 0.1 Sodium Potassium Chloride Carbon Dioxide Anion Gap BUN Creatinine Estimated GFR (MDRD) Glucose Calcium Total Bilirubin AST ALT Alkaline Phosphatase B-Natriuretic Peptide Total Protein Albumin Globulin Albumin/Globulin Ratio Lipase Urine Color Urine Clarity Urine pH Ur Specific [place] Urine Protein Urine Glucose (UA) Urine Ketones Urine Occult Blood Urine Nitrite Urine Bilirubin Urine Urobilinogen Ur Leukocyte Esterase Urine RBC Urine WBC Ur Squamous Epith Cells Urine Bacteria Ur Microscopic Review Urine Culture Comments Influenza A (Rapid) Negative Influenza B (Rapid) Negative Influenza Types A,B Ag - - Rads (name of study) CXR Radiology: Prelim report reviewed, EMP read contemporaneously, See rad report ( Normal 2 view chest radiography.) PD MEDICAL DECISION MAKING - ED course Complexity details: reviewed old records, reviewed results, re-evaluated patient , considered differential, d/w patient, d/w family, d/w computer consultant ED course: The patient's presentation is significant for acute asthmatic bronchitis that is not clearing with nebulizer treatments and oral Decadron. Chest x-ray reveals no evidence of pneumonia or congestive heart failure. Flu swab is negative. CBC, chemistry panel, BNP and urinalysis are pending. Treatment in the emergency department included administration of Xopenex nebulizer 2, Decadron 10 mg orally, and acetaminophen 650 mg orally. Although her air movement improved she continued to have diffuse expiratory wheezing with obvious dyspnea on repeat examinations. Her tachycardia improved and pulse oximetry improved to 94% on 4 L supplemental oxygen by nasal cannula. I discussed her condition with Dr. Abdul, the hospitalist, who will admit her to observation status for further evaluation and treatment. Departure - Departure Disposition: ED Place in Observation Clinical Impression: Asthmatic bronchitis with acute exacerbation Qualifiers: Asthma severity: moderate Asthma persistence: persistent Qualified Code(s): J45.41 - Moderate persistent asthma with (acute) exacerbation UTI (urinary tract infection) Qualifiers: Urinary tract infection type: acute cystitis Hematuria presence: without hematuria Qualified Code(s): N30.00 - Acute cystitis without hematuria Diabetes mellitus with hyperglycemia Qualifiers: Diabetes mellitus type: type 2 Diabetes mellitus jail insulin use: with terminal carman use Qualified Code(s): E11.65 - Type 2 diabetes mellitus with hyperglycemia; Z79.4 - retirement (current) use of insulin; Z79.4 - salvage determiner ( current) use of insulin; Z79.4 - retirement (current) use of insulin; Z79.4 - retirement (current) use of insulin Condition: Stable Discharge Date/Time: 12/02/17 21:31
[2017-12-02] MEDS ORDERED: ACETAMINOPHEN 325 MG TABLET PO STA (19:14)
[2017-12-02 19:24] LABS: BASOPHILS # (AUTO) 0.1 10^3/uL (0.0-0.1); BASOPHILS % (AUTO) 0.5 %; EOSINOPHILS # (AUTO) 0.1 10^3/uL (0.0-0.7); EOSINOPHILS % (AUTO) 0.6 %; HGB - HEMOGLOBIN 13.5 g/dL (12.0-16.0); LYMPHOCYTES # (AUTO) 1.5 10^3/uL (1.5-3.5); LYMPHOCYTES % (AUTO) 12.6 %; MEAN CORPUSCULAR HEMOGLOBIN 31.6 pg (27.0-31.0); MEAN CORPUSCULAR HGB CONC 31.8 g/dL (32.0-36.0); MEAN CORPUSCULAR VOLUME 99.2 fL (81.0-99.0); MEAN PLATELET VOLUME 7.8 fL (7.9-10.8); MONOCYTES # (AUTO) 1.1 10^3/uL (0.0-1.0); MONOCYTES % (AUTO) 8.9 %; NEUTROPHILS # (AUTO) 9.2 10^3/uL (1.5-6.6); NEUTROPHILS % (AUTO) 77.4 %; PLT - PLATELET COUNT 213 10^3/uL (130-450); RED BLOOD COUNT 4.29 10^6/uL (4.20-5.40); RED CELL DISTRIBUTION WIDTH 15.8 % (12.0-15.0)
[2017-12-02 19:31] LABS: BILIRUBIN,URINE NEGATIVE (NEGATIVE); GLUCOSE, URINE (UA) NEGATIVE (NEGATIVE); KETONES,URINE (UA) NEGATIVE (NEGATIVE); LEUKOCYTE ESTERASE, URINE SMALL (NEGATIVE); NITRITE,URINE POSITIVE (NEGATIVE); OCCULT BLOOD,URINE TRACE-INTA (NEGATIVE); PROTEIN,URINE TRACE mg/dL (NEGATIVE); UROBILINOGEN,URINE 0.2 (NORMAL) E.U./dL (NORMAL)
[2017-12-02 19:36] LABS: ALBUMIN/GLOBULIN RATIO 0.8 (1.0-2.2); BILIRUBIN,TOTAL 1.2 mg/dL (0.2-1.0); CALCIUM 8.8 mg/dL (8.5-10.3); CREATININE 0.7 mg/dL (0.4-1.0); TOTAL PROTEIN 6.6 g/dL (6.7-8.2)
[2017-12-02 19:42] LABS: CLARITY,URINE CLOUDY (CLEAR)
[2017-12-02 20:01] LABS: BACTERIA,URINE Many /HPF (None Seen); SQUAMOUS EPITHELIAL CELL,UR FEW Squamous (<= Few)
[2017-12-02] MEDS ORDERED: PROCHLORPERAZINE 10 MG/2 ML VIAL IVP PRN (20:18)
[2017-12-02] MEDS ORDERED: ZOLPIDEM 5 MG TABLET PO PRN (20:18)
[2017-12-02] MEDS ORDERED: ACETAMINOPHEN 325 MG TABLET PO PRN (20:18)
[2017-12-02] MEDS ORDERED: INSULIN ASPART 300 UNIT/3 ML PEN SUBQ SCH (21:00)
[2017-12-02] MEDS ORDERED: METFORMIN HCL 1000 MG PO SCH (21:00)
[2017-12-02] MEDS: PREGABALIN 25 MG CAPSULE PO SCH ×3 (21:57→22:47)
[2017-12-02] MEDS ORDERED: guaiFENesin/CODEINE 5 ML UDC PO SCH (22:00)
[2017-12-02] MEDS: SODIUM CHLORIDE FLUSH 0.9% 10 ML SYRINGE IVP SCH (22:18)
[2017-12-02] MEDS: methylPREDNISolone SUCCINATE 40 MG/ML VIAL IVP SCH (22:49)
[2017-12-02] MEDS: SODIUM CHLORIDE FLUSH 0.9% 10 ML SYRINGE IVP PRN (22:49)
[2017-12-02] MEDS: LEVALBUTEROL 1.25 MG/3 ML NEB INH SCH (23:30)
[2017-12-03] MEDS: NITROFURANTOIN MACRO 100 MG CAPSULE PO SCH ×3 (01:34→20:56)
--- NOTE | 2017-12-03 03:03 | HISTORY & PHYSICAL EXAMINATION ---
DATE OF SERVICE: 12/02/2017 Physician: Magaly Yan MD DATE OF ADMISSION: 12/02/2017 HISTORY OF PRESENT ILLNESS: This is a 71-year-old, white female with a history of asthma, diabetes, breast cancer with metastasis to the bone, for which she is on chemotherapy 1 week on, 1 week off, aortic stenosis, prior UTIs. The patient states she normally has her asthma under control, except for this past summer when the weather was very smokey and she had an asthmatic exacerbation, requiring her to go home with new oxygen. She uses oxygen now p.r.n. shortness of breath only. The patient is compliant with all her medications. Approximately a week ago, the patient started to develop a fever, cough with minimal sputum production and "tightness when breathing", meaning shortness of breath with activity, plus orthopnea, and audible wheezing. She was taking her nebulizers as prescribed and saw her primary care physician twice, who did testing for influenza A and B, and these were negative. With severe shortness of breath today, she came tot emergency room where she had audible wheezing and prolonged expiratory phase. She was in moderate respiratory distress. She got 2 Xopenex treatments, as well as steroid bolus, and had no improvement, and therefore is admitted for management of the asthmatic bronchitis. ALLERGIES 1. ERYTHROMYCIN. 2. KETAMINE. 3. LATEX. 4. RUBBER. 5. CODEINE. MEDICATIONS AT HOME 1. Vitamin D3. 2. Calcium with vitamin D3. 3. Amlodipine 2.5 mg daily. 4. Metformin 1000 mg p.o. b.i.d. 5. Glargine insulin 50 units subcutaneous daily. 6. NovoLog insulin 5 units subcutaneous with meals. 7. Compazine p.r.n. 8. Zofran p.r.n. 9. Capecitabine 2000 mg p.o. b.i.d. 10. Meloxicam 7.5 mg p.o. daily. 11. Lyrica 25 mg p.o. every evening. 12. Tylenol p.r.n. pain. PAST MEDICAL HISTORY: Hypertension, asthma, chronic back pain, type 2 diabetes ; breast cancer with METS to the bone, on chemotherapy. FAMILY HISTORY: Shows no inherited diseases. SOCIAL HISTORY: She is a nonsmoker who never smoked, drinks no alcohol, uses no illicit drugs. REVIEW OF SYSTEMS: A comprehensive review of systems was performed and the positives are described above. The patient notes that her urine started to turn cloudy and orange-pink just today, but there is no dysuria. PHYSICAL EXAMINATION GENERAL: Obese, white female. She is in mild respiratory distress when she is speaking and she has audible wheezing, and speaks with short sentences. VITAL SIGNS: Blood pressure 130/80, heart rate 108 in sinus tachycardia, fever of 38.0, oxygen saturation 93% on 4 liters nasal cannula. HEENT: Reveals moist oral mucosa and poor dentition. NECK: Shows no JVD, no carotid bruits, no thyromegaly, no adenopathy. CHEST: A prolonged expiratory phase and scattered wheezes. No rales or rhonchi are heard. BREASTS: Very large. HEART: Sounds are very distant. No audible murmurs. ABDOMEN: Obese with positive bowel sounds. Nontender. No obvious organomegaly. EXTREMITIES: Show pedal edema, trace. No clubbing or cyanosis. NEUROLOGIC: Grossly intact. LABORATORY DATA: Urine cloudy with positive nitrites and small leukocyte esterase. Electrolytes normal. BUN and creatinine normal. Glucose 240 and on repeat 396. Bilirubin 1.2. Normal liver tests. BNP 115, albumin 3.0, lipase normal. White blood count 12 with a left shift, hemoglobin 13.5, platelet count normal. No INR was done. Influenza A and B rapid testing was repeated, and both are negative here. Chest x-ray normal in 2 views. No EKG was done. IMPRESSION/DIAGNOSES 1. Asthmatic bronchitis. 2. Insulin-dependent diabetes mellitus. 3. Breast cancer with metastasis to the bone, on chemotherapy (this is on hold whenever she gets a fever over 101 and this is currently what she did). 4. Acute urinary tract infection, by virtue of abnormal urinalysis. PLAN: Place the patient in observation for a 24-hour course of aggressive treatment for the asthmatic bronchitis including IV steroids, nebulizers with Xopenex to avoid the tachycardia, incentive spirometry, and possible chest physio therapy. Add cough medicine. Continue with supplemental oxygen. Assess for need for oxygen at the time of discharge. Continue with her diabetic management and also add a sliding scale insulin coverage as her sugar will undoubtedly be elevated on steroids. Start the patient on Macrobid for her UTI. Await blood cultures that were sent in the emergency room, as well as this urine that was sent for culture, for results to adjust any antibiotics. DVT PROPHYLAXIS: Lovenox CODE STATUS: Full code. ATTESTATION: The patient is expected to be discharged or transferred to another facility within 96 hours: Yes. TD: 12/03/2017 04:02 MTDD
[2017-12-03 05:22] LABS: BASOPHILS % (AUTO) 0.2 %; LYMPHOCYTES # (AUTO) 0.8 10^3/uL (1.5-3.5); LYMPHOCYTES % (AUTO) 9.5 %; MEAN CORPUSCULAR HEMOGLOBIN 31.9 pg (27.0-31.0); MEAN CORPUSCULAR HGB CONC 31.3 g/dL (32.0-36.0); MEAN CORPUSCULAR VOLUME 101.8 fL (81.0-99.0); MEAN PLATELET VOLUME 7.6 fL (7.9-10.8); MONOCYTES # (AUTO) 0.2 10^3/uL (0.0-1.0); MONOCYTES % (AUTO) 2.4 %; NEUTROPHILS # (AUTO) 7.1 10^3/uL (1.5-6.6); NEUTROPHILS % (AUTO) 87.9 %; PLT - PLATELET COUNT 186 10^3/uL (130-450); RED BLOOD COUNT 4.08 10^6/uL (4.20-5.40); RED CELL DISTRIBUTION WIDTH 15.9 % (12.0-15.0); WHITE BLOOD COUNT 8.1 x10^3/uL (4.8-10.8)
[2017-12-03 05:26] LABS: CALCIUM 8.8 mg/dL (8.5-10.3); CREATININE 0.7 mg/dL (0.4-1.0); MAGNESIUM 1.6 mg/dL (1.7-2.8)
[2017-12-03 05:54] LABS: HB2 TOTAL 13.7 g/dL; HEMOGLOBIN A1C 0.92 g/dL; HEMOGLOBIN A1C % 8.3 % (4.6-6.2)
[2017-12-03] MEDS: methylPREDNISolone SUCCINATE 40 MG/ML VIAL IVP SCH ×3 (06:43→21:44)
[2017-12-03] MEDS: SODIUM CHLORIDE FLUSH 0.9% 10 ML SYRINGE IVP SCH ×3 (06:43→21:44)
[2017-12-03] MEDS ORDERED: INSULIN ASPART 5 UNIT SQ SCH (07:00)
[2017-12-03] MEDS ORDERED: INSULIN ASPART 300 UNIT/3 ML PEN SUBQ SCH ×4 (07:00→12:00)
[2017-12-03] MEDS ORDERED: metFORMIN 500 MG TABLET PO SCH (08:00)
[2017-12-03] MEDS ORDERED: CAPECITABINE 2000 MG PO SCH (09:00)
[2017-12-03] MEDS ORDERED: AMLODIPINE BESYLATE 2.5 MG PO SCH (09:00)
[2017-12-03] MEDS ORDERED: ENOXAPARIN 40 MG/0.4 ML SYRINGE SUBQ SCH (09:00)
[2017-12-03] MEDS ORDERED: INSULIN GLARGINE 300 UNIT/3 ML PEN SUBQ SCH (09:00)
[2017-12-03] MEDS ORDERED: INSULIN GLARGINE HUM REC ANLOG 50 UNIT SQ SCH (09:00)
[2017-12-03] MEDS ORDERED: NON FORMULARY MED (Carvedilol [Carvedilol] 6.25 MG) PO SCH (09:00)
[2017-12-03] MEDS ORDERED: MELOXICAM 7.5 MG PO SCH (09:00)
[2017-12-03] MEDS: CARVEDILOL 3.125 MG TABLET PO SCH (09:40)
[2017-12-03] MEDS: MELOXICAM 7.5 MG TABLET PO SCH (09:41)
[2017-12-03] MEDS: amLODIPine 5 MG TABLET PO SCH (09:41)
[2017-12-03] MEDS: FAMOTIDINE 20 MG TABLET PO SCH (09:43)
[2017-12-03] MEDS: MAGNESIUM OXIDE 400 MG TABLET PO SCH ×2 (09:43→20:56)
[2017-12-03] MEDS: INSULIN ASPART 300 UNIT/3 ML PEN SUBQ SCH ×6 (10:05→20:50)
[2017-12-03] MEDS: POLYETHYLENE GLYCOL 3350 17 GM PACKET PO SCH (10:08)
[2017-12-03] MEDS: LEVALBUTEROL 1.25 MG/3 ML NEB INH SCH ×3 (10:20→21:20)
--- NOTE | 2017-12-03 12:03 | PROVIDER PROGRESS NOTE ---
Subjective - Prog Note Date Prog Note Date: 12/03/17 Prog Note Time: 12:01 - Subjective Pt reports feeling: No change Subjective: Ana notes an improvement since the time of admission and offers no complaints. She denies chest pain or tightness, nausea, vomiting or a new cough. She has continued dysuria with frequency. Current Medications - Current Medications Current Medications: Active Medications Acetaminophen (Tylenol) 650 mg PO Q4HR PRN PRN Reason: Pain or Fever > 38C (100.4F) Amlodipine Besylate (Norvasc) 2.5 mg PO DAILY [facility] Last Admin: 12/03/17 09:41 Dose: 2.5 mg Carvedilol (Coreg) 6.25 mg PO DAILY [facility] Last Admin: 12/03/17 09:40 Dose: 6.25 mg Enoxaparin Sodium (Lovenox) 40 mg SUBQ DAILY [facility] Last Admin: 12/03/17 10:02 Dose: 40 mg Famotidine (Pepcid) 20 mg PO DAILY [facility] Last Admin: 12/03/17 09:43 Dose: 20 mg Guaifenesin (Robitussin Dm) 10 ml PO Q6HR PRN PRN Reason: Cough Insulin Aspart (Novolog) 5 unit SUBQ AC [facility] Last Admin: 12/03/17 10:04 Dose: 5 unit Insulin Aspart (Novolog) 3 - 11 unit SUBQ 0800,1200,1700,2100 JOHN PRN Reason: Protocol Last Admin: 12/03/17 10:05 Dose: 11 unit Insulin Glargine (Lantus Solostar) 50 unit SUBQ DAILY [facility] Last Admin: 12/03/17 10:07 Dose: 50 unit Levalbuterol HCl (Xopenex) 1.25 mg INH TID [facility] Last Admin: 12/03/17 10:20 Dose: 1.25 mg Magnesium Oxide (Mag Ox) 400 mg PO BID [facility] Last Admin: 12/03/17 09:43 Dose: 400 mg Meloxicam (Mobic) 7.5 mg PO DAILY [facility] Last Admin: 12/03/17 09:41 Dose: 7.5 mg Methylprednisolone (Solu-Medrol (40mg Vial)) 40 mg IVP TID [facility] Last Admin: 12/03/17 06:43 Dose: 40 mg Nitrofurantoin (Macrobid) 100 mg PO BID [facility] Last Admin: 12/03/17 09:41 Dose: 100 mg Polyethylene Glycol (Miralax) 17 gm PO DAILY [facility] Last Admin: 12/03/17 10:08 Dose: Not Given Pregabalin (Lyrica) 25 mg PO QPM [facility] Last Admin: 12/02/17 22:47 Dose: Not Given Prochlorperazine Edisylate (Compazine Inj) 10 mg IVP Q6HR PRN PRN Reason: Nausea / Vomiting Sodium Chloride (Normal Saline Flush 0.9%) 10 ml IVP PRN PRN PRN Reason: NEEDED PER PROVIDER ORDERS Last Admin: 12/02/17 22:49 Dose: 10 ml Sodium Chloride (Normal Saline Flush 0.9%) 10 ml IVP Q8HR [facility] Last Admin: 12/03/17 06:43 Dose: 10 ml Zolpidem Tartrate (Ambien) 5 mg PO QPM PRN PRN Reason: Insomnia Cholecalciferol (Vitamin D3) [Vitamin D] 6,000 unit PO DAILY 05/16/13 Amlodipine Besylate 2.5 mg PO DAILY 06/13/13 Calcium Carb/Vit D3/Minerals [Calcium 1,200 mg Tablet Chew] 4 each PO DAILY Carvedilol 6.25 mg PO DAILY 06/13/13 Metformin HCl 500 mg PO QPM PRN 04/15/14 Insulin Glargine,Hum.rec.anlog [Lantus] 50 unit SQ DAILY 05/13/14 Prochlorperazine [Compazine] 5 mg PO Q6H PRN 05/13/14 Insulin Aspart [Novolog] 25 units SQ AC 02/17/15 Ondansetron HCl [Zofran] 4 - 8 mg PO Q6H PRN 10/01/15 Capecitabine 2,000 mg PO BID 07/02/17 Meloxicam 7.5 mg PO DAILY 10/10/17 Pregabalin [Lyrica] 50 mg PO QPM 10/10/17 Acetaminophen [Tylenol Extra Strength] 1,000 mg PO Q6H PRN 12/03/17 Albuterol Sulfate [Proair Respiclick] 2 puffs INH Q4H PRN 12/03/17 Benzonatate [Tessalon] 100 - 200 mg PO TID PRN 12/03/17 Fluticasone/Vilanterol [Breo Ellipta 200-25 Mcg INH] 1 puffs INH DAILY 12/03/17 Objective - Vital Signs/Intake & Output Reviewed Vital Signs: Yes Vital Signs: Vital Signs x48h Temp Pulse Pulse Resp BP Pulse Ox 12/03/17 11:25 36.9 C 97 16 111/70 93 12/03/17 10:20 102 H 18 12/03/17 09:37 100 129/62 93 12/03/17 07:32 36.6 C 106 H 15 145/83 H 92 12/03/17 04:09 36.4 C L 96 22 135/66 H 94 Intake & Output: Intake & Output 11/30/17 12/01/17 12/02/17 12/03/17 23:59 23:59 23:59 23:59 Intake Total 240 740 Output Total 1 Balance 240 739 - Objective General Appearance: positive: Moderate distress, Anxious Eyes Bilateral: positive: Normal inspection Eyes: OU Conjunctivae pale ENT: positive: ENT inspection nml Neck: positive: No JVD, Lymphadenopathy (R), Lymphadenopathy (L), Stiff neck Respiratory: positive: Chest non-tender, Wheezes, Rhonchi Cardiovascular: positive: Regular rate & rhythm, No gallop, Systolic murmur Peripheral Pulses: 2+ Radial (R), 2+ Radial (L) Abdomen: positive: Non-tender, Nml bowel sounds, Hepatomegaly Back: positive: Nml inspection Skin: positive: No rash, Warm, Dry, Diaphoresis, Pallor Extremities: positive: Non-tender, Full ROM, Pedal edema, Joint swelling Neurologic/Psychiatric: positive: Oriented x3, CN's nml (2-12), Motor nml, Weakness, Depressed mood/affect Reflexes: Bicep (R): 2+, Bicep (L): 2+ - Lab Results Fish Bones: 12/04/17 05:55 12/04/17 05:55 Other Labs: Lab Results x24hrs 12/03/17 12/03/17 12/03/17 Range/Units 11:24 07:36 04:47 WBC (4.8-10.8) x10^3/uL RBC (4.20-5.40) 10^6/uL Hgb (12.0-16.0) g/dL Hct (37.0-47.0) % MCV (81.0-99.0) fL MCH (27.0-31.0) pg MCHC (32.0-36.0) g/dL RDW (12.0-15.0) % Plt Count (130-450) 10^3/uL MPV (7.9-10.8) fL Neut # (1.5-6.6) 10^3/uL Lymph # (1.5-3.5) 10^3/uL [place] # (0.0-1.0) 10^3/uL Eos # (0.0-0.7) 10^3/uL Baso # (0.0-0.1) 10^3/uL Absolute Nucleated RBC x10^3/uL Nucleated RBC % /100WBC Sodium 134 L (135-145) mmol/L Potassium 3.9 (3.5-5.0) mmol/L Chloride 94 L (101-111) mmol/L Carbon Dioxide 27 (21-32) mmol/L Anion Gap 13.0 (6-13) BUN 15 (6-20) mg/dL Creatinine 0.7 (0.4-1.0) mg/dL Estimated GFR (MDRD) 83 L (>89) Glucose 425 H (70-100) mg/dL POC Whole Bld Glucose 401 H 367 H (70 - 100) mg/dL Glycated Hemoglobin (4.6-6.2) % Estim Average Glucose (70-100) Calcium 8.8 (8.5-10.3) mg/dL Magnesium 1.6 L (1.7-2.8) mg/dL 12/03/17 12/03/17 12/02/17 Range/Units 04:47 04:47 21:50 WBC 8.1 (4.8-10.8) x10^3/uL RBC 4.08 L (4.20-5.40) 10^6/uL Hgb 13.0 (12.0-16.0) g/dL Hct 41.6 (37.0-47.0) % MCV 101.8 H (81.0-99.0) fL MCH 31.9 H (27.0-31.0) pg MCHC 31.3 L (32.0-36.0) g/dL RDW 15.9 H (12.0-15.0) % Plt Count 186 (130-450) 10^3/uL MPV 7.6 L (7.9-10.8) fL Neut # 7.1 H (1.5-6.6) 10^3/uL Lymph # 0.8 L (1.5-3.5) 10^3/uL [place] # 0.2 (0.0-1.0) 10^3/uL Eos # 0.0 (0.0-0.7) 10^3/uL Baso # 0.0 (0.0-0.1) 10^3/uL Absolute Nucleated RBC 0.00 x10^3/uL Nucleated RBC % 0.1 /100WBC Sodium (135-145) mmol/L Potassium (3.5-5.0) mmol/L Chloride (101-111) mmol/L Carbon Dioxide (21-32) mmol/L Anion Gap (6-13) BUN (6-20) mg/dL Creatinine (0.4-1.0) mg/dL Estimated GFR (MDRD) (>89) Glucose (70-100) mg/dL POC Whole Bld Glucose 396 H (70 - 100) mg/dL Glycated Hemoglobin 8.3 H (4.6-6.2) % Estim Average Glucose 192 H (70-100) Calcium (8.5-10.3) mg/dL Magnesium (1.7-2.8) mg/dL - Diagnostic Imaging Diagnostic Imaging Results: positive: Final report reviewed Diagnostic Imaging Comments: FINDINGS: Lungs/Pleura: No focal opacities evident. No pleural effusion. No pneumothorax. Normal volumes. Mediastinum: Heart and mediastinal contours are unremarkable. Other: None. IMPRESSION: Normal 2-view chest radiography. Assessment/Plan - Problem List (1) Asthmatic bronchitis with acute exacerbation Impression: Patient suffers from life-long asthma and is typically controlled using a single inhaler Breo-Ellipta at home. This chronic condition has lengthened her sick time, and made air-way clearance more challenging for her. Plan: Continue IV steroids, nebulizers, and incentive spirometry. Qualifiers: Asthma severity: moderate Asthma persistence: persistent Qualified Code(s ): J45.41 - Moderate persistent asthma with (acute) exacerbation (2) Diabetes mellitus with hyperglycemia Impression: Patient admits to being a long-standing diabetic. Her main exacerbating factor is her profound morbid obesity with a BMI of 52.1. Exercise is difficult due to the radiation that she received for her bone mets that have left residual left leg sciatic pain and weakness.Patient's latest HgA1C is 8.3%. She has been running high while inpatient, so adjustments to Lantus have been made. Plan: Continue SSI, lantus, and blood sugar checks. Plan to taper steroids as soon as medically appropriate based on symptoms to not further exacerbate hyperglycemia. Qualifiers: Diabetes mellitus type: type 2 Diabetes mellitus long term care phlebotomist insulin use: with long term care phlebotomist use Qualified Code(s): E11.65 - Type 2 diabetes mellitus with hyperglycemia; Z79.4 - [facility] (current) use of insulin; Z79.4 - roasterman ( current) use of insulin; Z79.4 - roasterman (current) use of insulin; Z79.4 - roasterman (current) use of insulin (3) UTI (urinary tract infection) Impression: Patient admits to reoccuring UTI's for the past year. She believes this has become worse after her spinal surgery and says that she may have residual incontinence post procedure. She has since suffered from urinary incontinence, but can still control her bowels. She states that her only symptom is frequency , and urgency. She says that when she urinates, sometimes it is a very small amount "about a Tablespoon". Plan: Preliminary UA shows e.coli, awaiting sensitivities. Patient offered Pure Wick, but refused. She should partake in a regular toileting schedule. Qualifiers: Urinary tract infection type: acute cystitis Hematuria presence: without hematuria Qualified Code(s): N30.00 - Acute cystitis without hematuria (4) Breast cancer metastasized to bone Impression: She is currently on Capecitabine PO with a recent schedule one week on, one week off. She has not been able to take this past week's dosing due to illness. The status of her cancer is in remission. Plan: Continue previous schedule as per oncology.
[2017-12-03] MEDS ORDERED: INSULIN GLARGINE 300 UNIT/3 ML PEN SUBQ ONE (12:27)
[2017-12-03] MEDS ORDERED: PHENOL THROAT SPRAY 177 ML MM PRN (16:06)
[2017-12-03] MEDS: guaiFENesin/DEXTROMETHORPHAN 10 ML UDC PO PRN (16:51)
[2017-12-03] MEDS: PREGABALIN 25 MG CAPSULE PO SCH (20:56)
[2017-12-03] MEDS: BENZOCAINE/MENTHOL LOZENGE MM PRN (21:44)
[2017-12-04] MEDS: guaiFENesin/DEXTROMETHORPHAN 10 ML UDC PO PRN ×3 (01:09→20:20)
[2017-12-04 06:15] LABS: ALBUMIN 3.3 g/dL (3.2-5.5); ALBUMIN/GLOBULIN RATIO 0.8 (1.0-2.2); BILIRUBIN,TOTAL 0.6 mg/dL (0.2-1.0); CALCIUM 9.1 mg/dL (8.5-10.3); CREATININE 0.8 mg/dL (0.4-1.0); PHOSPHORUS 3.1 mg/dL (2.5-4.6); TOTAL PROTEIN 7.4 g/dL (6.7-8.2)
[2017-12-04 06:19] LABS: BASOPHILS % (AUTO) 0.3 %; EOSINOPHILS % (AUTO) 0.1 %; HGB - HEMOGLOBIN 13.2 g/dL (12.0-16.0); LYMPHOCYTES # (AUTO) 0.8 10^3/uL (1.5-3.5); LYMPHOCYTES % (AUTO) 8.2 %; MEAN CORPUSCULAR HEMOGLOBIN 31.5 pg (27.0-31.0); MEAN CORPUSCULAR HGB CONC 31.6 g/dL (32.0-36.0); MEAN CORPUSCULAR VOLUME 99.6 fL (81.0-99.0); MEAN PLATELET VOLUME 7.5 fL (7.9-10.8); MONOCYTES # (AUTO) 0.6 10^3/uL (0.0-1.0); MONOCYTES % (AUTO) 6.3 %; NEUTROPHILS # (AUTO) 8.7 10^3/uL (1.5-6.6); NEUTROPHILS % (AUTO) 85.1 %; PLT - PLATELET COUNT 245 10^3/uL (130-450); RED BLOOD COUNT 4.19 10^6/uL (4.20-5.40); RED CELL DISTRIBUTION WIDTH 15.8 % (12.0-15.0); WHITE BLOOD COUNT 10.2 x10^3/uL (4.8-10.8)
[2017-12-04] MEDS: INSULIN ASPART 300 UNIT/3 ML PEN SUBQ SCH ×7 (06:58→21:14)
[2017-12-04] MEDS: methylPREDNISolone SUCCINATE 40 MG/ML VIAL IVP SCH ×3 (06:58→21:13)
[2017-12-04] MEDS: SODIUM CHLORIDE FLUSH 0.9% 10 ML SYRINGE IVP SCH ×3 (07:01→20:16)
[2017-12-04] MEDS ORDERED: INSULIN GLARGINE 300 UNIT/3 ML PEN SUBQ SCH (08:00)
--- NOTE | 2017-12-04 08:44 | PROVIDER PROGRESS NOTE ---
Subjective - Prog Note Date Prog Note Date: 12/04/17 Prog Note Time: 08:44 - Subjective Pt reports feeling: No change Subjective: Ana has several complaints including, bilateral eye redness, clogged ears, headache and slow to improve. She denies chest pain, N/V or a new cough. Current Medications - Current Medications Current Medications: Active Medications Acetaminophen (Tylenol) 650 mg PO Q4HR PRN PRN Reason: Pain or Fever > 38C (100.4F) Amlodipine Besylate (Norvasc) 2.5 mg PO DAILY [facility] Last Admin: 12/05/17 08:11 Dose: 2.5 mg Benzonatate (Tessalon) 100 mg PO TID PRN PRN Reason: Cough Last Admin: 12/04/17 10:22 Dose: 100 mg Budesonide (Pulmicort) 0.5 mg INH RTBID [facility] Last Admin: 12/05/17 07:18 Dose: 0.5 mg Carvedilol (Coreg) 6.25 mg PO DAILY [facility] Last Admin: 12/05/17 08:11 Dose: 6.25 mg Enoxaparin Sodium (Lovenox) 40 mg SUBQ BID [facility] Last Admin: 12/05/17 08:12 Dose: 40 mg Famotidine (Pepcid) 20 mg PO DAILY [facility] Last Admin: 12/05/17 08:11 Dose: 20 mg Guaifenesin (Robitussin Dm) 10 ml PO Q6HR PRN PRN Reason: Cough Last Admin: 12/04/17 20:20 Dose: 10 ml Levofloxacin (Levaquin 500 Mg/100 Ml) 500 mg in 100 mls @ 100 mls/hr IV Q24H [facility] Last Infusion: 12/04/17 21:23 Dose: Infused Insulin Aspart (Novolog) 3 - 11 unit SUBQ 0800,1200,1700,2100 [facility] PRN Reason: Protocol Last Admin: 12/05/17 08:10 Dose: 9 unit Insulin Aspart (Novolog) 10 unit SUBQ AC [facility] Last Admin: 12/05/17 06:58 Dose: 10 unit Insulin Glargine (Lantus Solostar) 65 unit SUBQ DAILY [facility] Last Admin: 12/05/17 08:12 Dose: 65 unit Levalbuterol HCl (Xopenex) 1.25 mg INH TID [facility] Last Admin: 12/05/17 07:19 Dose: 1.25 mg Levalbuterol HCl (Xopenex) 1.25 mg INH Q4H PRN PRN Reason: Shortness of Air/Wheezing Magnesium Oxide (Mag Ox) 400 mg PO BID [facility] Stop: 12/05/17 12:00 Last Admin: 12/05/17 08:11 Dose: 400 mg Meloxicam (Mobic) 7.5 mg PO DAILY [facility] Last Admin: 12/05/17 08:11 Dose: 7.5 mg Methylprednisolone (Solu-Medrol (40mg Vial)) 60 mg IVP TID [facility] Last Admin: 12/05/17 06:17 Dose: 60 mg Oxymetazoline HCl (Afrin) 1 sprays FABY BID [facility] Stop: 12/07/17 20:59 Last Admin: 12/05/17 08:13 Dose: 1 sprays Phenol/Menthol (Chloraseptic) 2 sprays MM Q2HR PRN PRN Reason: Throat Pain Last Admin: 12/03/17 16:51 Dose: 2 sprays Polyethylene Glycol (Miralax) 17 gm PO DAILY [facility] Last Admin: 12/05/17 08:13 Dose: Not Given Polymyxin/Trimethoprim Sulfate (Polytrim Ophth Drops) 1 drops EACHEYE Q3HR [facility] Last Admin: 12/05/17 08:14 Dose: 1 drops Pregabalin (Lyrica) 25 mg PO QPM [facility] Last Admin: 12/04/17 20:15 Dose: 25 mg Prochlorperazine Edisylate (Compazine Inj) 10 mg IVP Q6HR PRN PRN Reason: Nausea / Vomiting Sodium Chloride (Normal Saline Flush 0.9%) 10 ml IVP PRN PRN PRN Reason: NEEDED PER PROVIDER ORDERS Last Admin: 12/04/17 14:18 Dose: 10 ml Sodium Chloride (Normal Saline Flush 0.9%) 10 ml IVP Q8HR [facility] Last Admin: 12/05/17 06:17 Dose: 10 ml Throat Lozenges (Cepacol) 1 lozenge MM Q2HR PRN PRN Reason: Throat pain Last Admin: 12/04/17 10:22 Dose: 1 lozenge Zolpidem Tartrate (Ambien) 5 mg PO QPM PRN PRN Reason: Insomnia Cholecalciferol (Vitamin D3) [Vitamin D] 6,000 unit PO DAILY 05/16/13 Amlodipine Besylate 2.5 mg PO DAILY 06/13/13 Calcium Carb/Vit D3/Minerals [Calcium 1,200 mg Tablet Chew] 4 each PO DAILY Carvedilol 6.25 mg PO DAILY 06/13/13 Metformin HCl 500 mg PO QPM PRN 04/15/14 Insulin Glargine,Hum.rec.anlog [Lantus] 50 unit SQ DAILY 05/13/14 Prochlorperazine [Compazine] 5 mg PO Q6H PRN 05/13/14 Insulin Aspart [Novolog] 25 units SQ AC 02/17/15 Ondansetron HCl [Zofran] 4 - 8 mg PO Q6H PRN 10/01/15 Capecitabine 2,000 mg PO BID 07/02/17 Meloxicam 7.5 mg PO DAILY 10/10/17 Pregabalin [Lyrica] 50 mg PO QPM 10/10/17 Acetaminophen [Tylenol Extra Strength] 1,000 mg PO Q6H PRN 12/03/17 Albuterol Sulfate [Proair Respiclick] 2 puffs INH Q4H PRN 12/03/17 Benzonatate [Tessalon] 100 - 200 mg PO TID PRN 12/03/17 Fluticasone/Vilanterol [Breo Ellipta 200-25 Mcg INH] 1 puffs INH DAILY 12/03/17 Objective - Vital Signs/Intake & Output Reviewed Vital Signs: Yes Vital Signs: Vital Signs x48h Temp Pulse Pulse Resp BP Pulse Ox 12/04/17 07:54 36.9 C 92 146/76 H 94 12/04/17 06:00 36.6 C 90 18 158/82 H 92 Intake & Output: Intake & Output 12/01/17 12/02/17 12/03/17 12/04/17 23:59 23:59 23:59 23:59 Intake Total 240 Output Total 1 Balance 239 - Objective General Appearance: positive: Alert, Moderate distress Eyes Bilateral: positive: PERRL, No scleral icterus, Other (bilateral lid, conjunctivae erythema, teary.) Eyes: OU Lid inflammation ENT: positive: Dry mucous membranes, Other (mild blood nose) Neck: positive: No JVD, Lymphadenopathy (R) (right greater than left.), Lymphadenopathy (L) Respiratory: positive: Chest non-tender, Wheezes, Other (crackles bilateral lower lobes.) Cardiovascular: positive: Regular rate & rhythm, Systolic murmur, Decreased pulse(s) Peripheral Pulses: 1+ Radial (R), 1+ Radial (L) Abdomen: positive: Non-tender, Nml bowel sounds Back: positive: Nml inspection Skin: positive: No rash, Warm, Dry, Pallor Extremities: positive: Pedal edema, Joint swelling Neurologic/Psychiatric: positive: Oriented x3, CN's nml (2-12), Motor nml, Sensation nml, Depressed mood/affect Reflexes: Bicep (R): 2+, Bicep (L): 2+ - Lab Results Fish Bones: 12/05/17 05:28 12/05/17 05:28 Other Labs: Lab Results x24hrs 12/04/17 12/04/17 12/04/17 Range/Units 07:50 06:32 05:55 WBC (4.8-10.8) x10^3/uL RBC (4.20-5.40) 10^6/uL Hgb (12.0-16.0) g/dL Hct (37.0-47.0) % MCV (81.0-99.0) fL MCH (27.0-31.0) pg MCHC (32.0-36.0) g/dL RDW (12.0-15.0) % Plt Count (130-450) 10^3/uL MPV (7.9-10.8) fL Neut # (1.5-6.6) 10^3/uL Lymph # (1.5-3.5) 10^3/uL [place] # (0.0-1.0) 10^3/uL Eos # (0.0-0.7) 10^3/uL Baso # (0.0-0.1) 10^3/uL Absolute Nucleated RBC x10^3/uL Nucleated RBC % /100WBC Sodium (135-145) mmol/L Potassium (3.5-5.0) mmol/L Chloride (101-111) mmol/L Carbon Dioxide (21-32) mmol/L Anion Gap (6-13) BUN (6-20) mg/dL Creatinine (0.4-1.0) mg/dL Estimated GFR (MDRD) (>89) Glucose (70-100) mg/dL POC Whole Bld Glucose 364 H 378 H (70 - 100) mg/dL Lactic Acid 1.1 (0.5-2.2) mmol/L Calcium (8.5-10.3) mg/dL Phosphorus (2.5-4.6) mg/dL Magnesium (1.7-2.8) mg/dL Total Bilirubin (0.2-1.0) mg/dL AST (10-42) IU/L ALT (10-60) IU/L Alkaline Phosphatase (42-121) IU/L Total Protein (6.7-8.2) g/dL Albumin (3.2-5.5) g/dL Globulin (2.1-4.2) g/dL Albumin/Globulin Ratio (1.0-2.2) 12/04/17 12/04/17 12/03/17 Range/Units 05:55 05:55 20:31 WBC 10.2 (4.8-10.8) x10^3/uL RBC 4.19 L (4.20-5.40) 10^6/uL Hgb 13.2 (12.0-16.0) g/dL Hct 41.8 (37.0-47.0) % MCV 99.6 H (81.0-99.0) fL MCH 31.5 H (27.0-31.0) pg MCHC 31.6 L (32.0-36.0) g/dL RDW 15.8 H (12.0-15.0) % Plt Count 245 (130-450) 10^3/uL MPV 7.5 L (7.9-10.8) fL Neut # 8.7 H (1.5-6.6) 10^3/uL Lymph # 0.8 L (1.5-3.5) 10^3/uL [place] # 0.6 (0.0-1.0) 10^3/uL Eos # 0.0 (0.0-0.7) 10^3/uL Baso # 0.0 (0.0-0.1) 10^3/uL Absolute Nucleated RBC 0.00 x10^3/uL Nucleated RBC % 0.0 /100WBC Sodium 134 L (135-145) mmol/L Potassium 4.6 (3.5-5.0) mmol/L Chloride 94 L (101-111) mmol/L Carbon Dioxide 31 (21-32) mmol/L Anion Gap 9.0 (6-13) BUN 24 H (6-20) mg/dL Creatinine 0.8 (0.4-1.0) mg/dL Estimated GFR (MDRD) 71 L (>89) Glucose 384 H (70-100) mg/dL POC Whole Bld Glucose 385 H (70 - 100) mg/dL Lactic Acid (0.5-2.2) mmol/L Calcium 9.1 (8.5-10.3) mg/dL Phosphorus 3.1 (2.5-4.6) mg/dL Magnesium 2.0 (1.7-2.8) mg/dL Total Bilirubin 0.6 (0.2-1.0) mg/dL AST 23 (10-42) IU/L ALT 22 (10-60) IU/L Alkaline Phosphatase 75 (42-121) IU/L Total Protein 7.4 (6.7-8.2) g/dL Albumin 3.3 (3.2-5.5) g/dL Globulin 4.1 (2.1-4.2) g/dL Albumin/Globulin Ratio 0.8 L (1.0-2.2) 12/03/17 12/03/17 Range/Units 16:55 11:24 WBC (4.8-10.8) x10^3/uL RBC (4.20-5.40) 10^6/uL Hgb (12.0-16.0) g/dL Hct (37.0-47.0) % MCV (81.0-99.0) fL MCH (27.0-31.0) pg MCHC (32.0-36.0) g/dL RDW (12.0-15.0) % Plt Count (130-450) 10^3/uL MPV (7.9-10.8) fL Neut # (1.5-6.6) 10^3/uL Lymph # (1.5-3.5) 10^3/uL [place] # (0.0-1.0) 10^3/uL Eos # (0.0-0.7) 10^3/uL Baso # (0.0-0.1) 10^3/uL Absolute Nucleated RBC x10^3/uL Nucleated RBC % /100WBC Sodium (135-145) mmol/L Potassium (3.5-5.0) mmol/L Chloride (101-111) mmol/L Carbon Dioxide (21-32) mmol/L Anion Gap (6-13) BUN (6-20) mg/dL Creatinine (0.4-1.0) mg/dL Estimated GFR (MDRD) (>89) Glucose (70-100) mg/dL POC Whole Bld Glucose 344 H 401 H (70 - 100) mg/dL Lactic Acid (0.5-2.2) mmol/L Calcium (8.5-10.3) mg/dL Phosphorus (2.5-4.6) mg/dL Magnesium (1.7-2.8) mg/dL Total Bilirubin (0.2-1.0) mg/dL AST (10-42) IU/L ALT (10-60) IU/L Alkaline Phosphatase (42-121) IU/L Total Protein (6.7-8.2) g/dL Albumin (3.2-5.5) g/dL Globulin (2.1-4.2) g/dL Albumin/Globulin Ratio (1.0-2.2) - Diagnostic Imaging Diagnostic Imaging Results: positive: Final report reviewed Assessment/Plan - Problem List (1) Asthmatic bronchitis with acute exacerbation Impression: Patient suffers from life-long asthma and is typically controlled using a single inhaler Breo-Ellipta at home. This chronic condition has lengthened her sick time, and made air-way clearance more challenging for her. Plan: Continue IV steroids, nebulizers, and incentive spirometry. Qualifiers: Asthma severity: moderate Asthma persistence: persistent Qualified Code(s ): J45.41 - Moderate persistent asthma with (acute) exacerbation (2) Diabetes mellitus with hyperglycemia Impression: Patient admits to being a long-standing diabetic. Her main exacerbating factor is her profound morbid obesity with a BMI of 52.1. Exercise is difficult due to the radiation that she received for her bone mets that have left residual left leg sciatic pain and weakness.Patient's latest HgA1C is 8.3%. She has been running high while inpatient, so adjustments to Lantus have been made. Plan: Continue SSI, lantus, and blood sugar checks. Plan to taper steroids as soon as medically appropriate based on symptoms to not further exacerbate hyperglycemia. Qualifiers: Diabetes mellitus type: type 2 Diabetes mellitus [facility] insulin use: with [facility] use Qualified Code(s): E11.65 - Type 2 diabetes mellitus with hyperglycemia; Z79.4 - retirement (current) use of insulin; Z79.4 - retirement ( current) use of insulin; Z79.4 - retirement (current) use of insulin; Z79.4 - retirement (current) use of insulin (3) UTI (urinary tract infection) Impression: Patient admits to reoccurring UTI's for the past year. She believes this has become worse after her spinal surgery and says that she may have residual incontinence post procedure. She has since suffered from urinary incontinence, but can still control her bowels. She states that her only symptom is frequency , and urgency. She says that when she urinates, sometimes it is a very small amount "about a Tablespoon". She admits to less dysuria today. Plan: Preliminary UA shows e.coli, so IV levofloxacin was ordered. Patient offered Pure Wick, but refused. She should partake in a regular toileting schedule. Qualifiers: Urinary tract infection type: acute cystitis Hematuria presence: without hematuria Qualified Code(s): N30.00 - Acute cystitis without hematuria (4) Breast cancer metastasized to bone Impression: She is currently on Capecitabine PO with a recent schedule one week on, one week off. She has not been able to take this past week's dosing due to illness. The status of her cancer is in remission. Plan: Continue previous schedule as per oncology.
[2017-12-04] MEDS: MELOXICAM 7.5 MG TABLET PO SCH (08:45)
[2017-12-04] MEDS: MAGNESIUM OXIDE 400 MG TABLET PO SCH ×2 (08:47→20:16)
[2017-12-04] MEDS: amLODIPine 5 MG TABLET PO SCH (08:47)
[2017-12-04] MEDS: NITROFURANTOIN MACRO 100 MG CAPSULE PO SCH (08:47)
[2017-12-04] MEDS: CARVEDILOL 3.125 MG TABLET PO SCH (08:47)
[2017-12-04] MEDS: ENOXAPARIN 40 MG/0.4 ML SYRINGE SUBQ SCH ×2 (08:47→20:15)
[2017-12-04] MEDS: INSULIN GLARGINE 300 UNIT/3 ML PEN SUBQ SCH (08:48)
[2017-12-04] MEDS: POLYETHYLENE GLYCOL 3350 17 GM PACKET PO SCH (08:50)
[2017-12-04] MEDS: FAMOTIDINE 20 MG TABLET PO SCH (08:54)
[2017-12-04] MEDS ORDERED: BENZONATATE 100 MG CAPSULE PO PRN (09:23)
[2017-12-04] MEDS ORDERED: LEVALBUTEROL 1.25 MG/3 ML NEB INH PRN (09:28)
[2017-12-04] MEDS: LEVALBUTEROL 1.25 MG/3 ML NEB INH SCH ×3 (10:00→22:30)
[2017-12-04] MEDS: BUDESONIDE 0.5 MG/2 ML NEB INH SCH ×2 (10:00→22:30)
[2017-12-04] MEDS: BENZOCAINE/MENTHOL LOZENGE MM PRN (10:22)
[2017-12-04] MEDS: SODIUM CHLORIDE FLUSH 0.9% 10 ML SYRINGE IVP PRN (14:18)
[2017-12-04] MEDS ORDERED: SODIUM CHLORIDE FLUSH 0.9% 10 ML SYRINGE ONE (19:47)
[2017-12-04] MEDS: levoFLOXacin 500 MG/100 ML 500 MG/100 ML BAG IV SCH (19:50)
[2017-12-04] MEDS ORDERED: CARBAMIDE PEROXIDE 6.5% OTIC DROPS EACHEAR SCH (19:51)
[2017-12-04] MEDS: POLYMYXIN B/TRIMETH OPHTH DROPS EACHEYE SCH ×2 (20:01→20:16)
[2017-12-04] MEDS: OXYMETAZOLINE NASAL SPRAY NAS SCH (20:14)
[2017-12-04] MEDS: PREGABALIN 25 MG CAPSULE PO SCH (20:15)
[2017-12-05] MEDS: POLYMYXIN B/TRIMETH OPHTH DROPS EACHEYE SCH ×8 (00:06→21:46)
[2017-12-05 05:45] LABS: BASOPHILS % (AUTO) 0.5 %; EOSINOPHILS % (AUTO) 0.1 %; HGB - HEMOGLOBIN 12.8 g/dL (12.0-16.0); LYMPHOCYTES # (AUTO) 0.6 10^3/uL (1.5-3.5); LYMPHOCYTES % (AUTO) 6.6 %; MEAN CORPUSCULAR HGB CONC 32.8 g/dL (32.0-36.0); MEAN CORPUSCULAR VOLUME 97.7 fL (81.0-99.0); MEAN PLATELET VOLUME 7.2 fL (7.9-10.8); MONOCYTES # (AUTO) 0.5 10^3/uL (0.0-1.0); MONOCYTES % (AUTO) 5.3 %; NEUTROPHILS # (AUTO) 8.4 10^3/uL (1.5-6.6); NEUTROPHILS % (AUTO) 87.5 %; PLT - PLATELET COUNT 245 10^3/uL (130-450); RED BLOOD COUNT 3.98 10^6/uL (4.20-5.40); RED CELL DISTRIBUTION WIDTH 15.4 % (12.0-15.0); WHITE BLOOD COUNT 9.6 x10^3/uL (4.8-10.8)
[2017-12-05] MEDS: SODIUM CHLORIDE FLUSH 0.9% 10 ML SYRINGE IVP SCH ×3 (06:17→21:46)
[2017-12-05] MEDS: methylPREDNISolone SUCCINATE 40 MG/ML VIAL IVP SCH ×3 (06:17→21:45)
[2017-12-05 06:24] LABS: ALBUMIN 3.2 g/dL (3.2-5.5); ALBUMIN/GLOBULIN RATIO 0.8 (1.0-2.2); BILIRUBIN,TOTAL 0.6 mg/dL (0.2-1.0); CALCIUM 8.8 mg/dL (8.5-10.3); CREATININE 0.8 mg/dL (0.4-1.0)
[2017-12-05] MEDS: INSULIN ASPART 300 UNIT/3 ML PEN SUBQ SCH ×7 (06:58→21:44)
[2017-12-05] MEDS: BUDESONIDE 0.5 MG/2 ML NEB INH SCH ×2 (07:18→18:01)
[2017-12-05] MEDS: LEVALBUTEROL 1.25 MG/3 ML NEB INH SCH ×3 (07:19→18:01)
[2017-12-05] MEDS: CARVEDILOL 3.125 MG TABLET PO SCH (08:11)
[2017-12-05] MEDS: MELOXICAM 7.5 MG TABLET PO SCH (08:11)
[2017-12-05] MEDS: amLODIPine 5 MG TABLET PO SCH (08:11)
[2017-12-05] MEDS: FAMOTIDINE 20 MG TABLET PO SCH (08:11)
[2017-12-05] MEDS: MAGNESIUM OXIDE 400 MG TABLET PO SCH (08:11)
[2017-12-05] MEDS: ENOXAPARIN 40 MG/0.4 ML SYRINGE SUBQ SCH ×2 (08:12→21:44)
[2017-12-05] MEDS: INSULIN GLARGINE 300 UNIT/3 ML PEN SUBQ SCH (08:12)
[2017-12-05] MEDS: POLYETHYLENE GLYCOL 3350 17 GM PACKET PO SCH (08:13)
[2017-12-05] MEDS: OXYMETAZOLINE NASAL SPRAY NAS SCH ×2 (08:13→21:46)
--- NOTE | 2017-12-05 15:11 | PROVIDER PROGRESS NOTE ---
Subjective - Prog Note Date Prog Note Date: 12/05/17 Prog Note Time: 12:00 - Subjective Pt reports feeling: No change Subjective: Ana states that she is much improved since the time of admission, but still having exercise intolerance, increased breathing effort and some coughing. She denies chest pain or pressure, N/V or a changed cough. She is compliant with her incentive spirometry and can correctly demonstrate its use. Current Medications - Current Medications Current Medications: Cholecalciferol (Vitamin D3) [Vitamin D3] 6,000 unit PO DAILY 05/16/13 Calcium Carb/Vit D3/Minerals [Calcium 1,200 mg Tablet Chew] 4 each PO DAILY Carvedilol 6.25 mg PO DAILY 06/13/13 Metformin HCl 500 mg PO QPM PRN 04/15/14 Insulin Glargine,Hum.rec.anlog [Lantus] 50 unit SQ DAILY 05/13/14 Prochlorperazine [Compazine] 5 mg PO Q6H PRN 05/13/14 Insulin Aspart [Novolog] 25 units SQ AC 02/17/15 Ondansetron HCl [Zofran] 4 - 8 mg PO Q6H PRN 10/01/15 Capecitabine 2,000 mg PO BID 07/02/17 Meloxicam 7.5 mg PO DAILY 10/10/17 Pregabalin [Lyrica] 50 mg PO QPM 10/10/17 Albuterol Sulfate [Proair Respiclick] 2 puffs INH Q4H PRN 12/03/17 Fluticasone/Vilanterol [Breo Ellipta 200-25 Mcg INH] 1 puffs INH DAILY 12/03/17 Objective - Vital Signs/Intake & Output Reviewed Vital Signs: Yes Vital Signs: Vital Signs x48h Temp Pulse Pulse Resp BP Pulse Ox 12/05/17 13:17 90 18 12/05/17 08:20 36.5 C 99 16 150/82 H 95 12/05/17 07:22 94 18 Intake & Output: Intake & Output 12/02/17 12/03/17 12/04/17 12/05/17 23:59 23:59 23:59 23:59 Intake Total 240 1050 840 Output Total 1 Balance 239 1050 840 - Objective General Appearance: positive: No acute distress, Alert Eyes Bilateral: positive: No scleral icterus Eyes: OU Lid inflammation, OU Other (erythema improving after eye drops) ENT: positive: Pharyngeal erythema, Dry mucous membranes (less bloody noses after saline spray and afrin prescribed.) Neck: positive: No JVD, Trachea midline, Lymphadenopathy (R), Lymphadenopathy (L ), Stiff neck Respiratory: positive: Chest non-tender, Wheezes, Other (slight crackles in low bases.) Cardiovascular: positive: No gallop, Irregularly irregular, PMI displaced laterally, Systolic murmur (moderate to severe aortic stenosis as per echocardiogram) Peripheral Pulses: 1+ Radial (R), 1+ Radial (L), 1+ Popliteal (R), 1+ Popliteal (L) Abdomen: positive: Non-tender, Nml bowel sounds, Hepatomegaly, Other (rounded, soft.) Back: positive: Nml inspection Skin: positive: No rash, Warm, Dry Neurologic/Psychiatric: positive: Oriented x3, CN's nml (2-12), Motor nml, Sensation nml, Depressed mood/affect Reflexes: Bicep (R): 2+, Bicep (L): 2+ - Lab Results Fish Bones: 12/06/17 05:50 12/06/17 05:50 Other Labs: Lab Results x24hrs 12/05/17 12/05/17 12/05/17 Range/Units 14:31 11:30 07:39 WBC (4.8-10.8) x10^3/uL RBC (4.20-5.40) 10^6/uL Hgb (12.0-16.0) g/dL Hct (37.0-47.0) % MCV (81.0-99.0) fL MCH (27.0-31.0) pg MCHC (32.0-36.0) g/dL RDW (12.0-15.0) % Plt Count (130-450) 10^3/uL MPV (7.9-10.8) fL Neut # (1.5-6.6) 10^3/uL Lymph # (1.5-3.5) 10^3/uL [place] # (0.0-1.0) 10^3/uL Eos # (0.0-0.7) 10^3/uL Baso # (0.0-0.1) 10^3/uL Absolute Nucleated RBC x10^3/uL Nucleated RBC % /100WBC Sodium (135-145) mmol/L Potassium (3.5-5.0) mmol/L Chloride (101-111) mmol/L Carbon Dioxide (21-32) mmol/L Anion Gap (6-13) BUN (6-20) mg/dL Creatinine (0.4-1.0) mg/dL Estimated GFR (MDRD) (>89) Glucose (70-100) mg/dL POC Whole Bld Glucose 322 H 401 H 320 H (70 - 100) mg/dL Calcium (8.5-10.3) mg/dL Iron (28-170) ug/dL TIBC (250-450) ug/dL % Saturation (20-50) % Transferrin (192-382) mg/dL Total Bilirubin (0.2-1.0) mg/dL AST (10-42) IU/L ALT (10-60) IU/L Alkaline Phosphatase (42-121) IU/L Total Protein (6.7-8.2) g/dL Albumin (3.2-5.5) g/dL Globulin (2.1-4.2) g/dL Albumin/Globulin Ratio (1.0-2.2) 12/05/17 12/05/17 12/04/17 Range/Units 05:28 05:28 20:21 WBC 9.6 (4.8-10.8) x10^3/uL RBC 3.98 L (4.20-5.40) 10^6/uL Hgb 12.8 (12.0-16.0) g/dL Hct 38.9 (37.0-47.0) % MCV 97.7 (81.0-99.0) fL MCH 32.0 H (27.0-31.0) pg MCHC 32.8 (32.0-36.0) g/dL RDW 15.4 H (12.0-15.0) % Plt Count 245 (130-450) 10^3/uL MPV 7.2 L (7.9-10.8) fL Neut # 8.4 H (1.5-6.6) 10^3/uL Lymph # 0.6 L (1.5-3.5) 10^3/uL [place] # 0.5 (0.0-1.0) 10^3/uL Eos # 0.0 (0.0-0.7) 10^3/uL Baso # 0.0 (0.0-0.1) 10^3/uL Absolute Nucleated RBC 0.00 x10^3/uL Nucleated RBC % 0.0 /100WBC Sodium 136 (135-145) mmol/L Potassium 4.5 (3.5-5.0) mmol/L Chloride 97 L (101-111) mmol/L Carbon Dioxide 30 (21-32) mmol/L Anion Gap 9.0 (6-13) BUN 30 H (6-20) mg/dL Creatinine 0.8 (0.4-1.0) mg/dL Estimated GFR (MDRD) 71 L (>89) Glucose 337 H (70-100) mg/dL POC Whole Bld Glucose 187 H (70 - 100) mg/dL Calcium 8.8 (8.5-10.3) mg/dL Iron 50 (28-170) ug/dL TIBC 293 (250-450) ug/dL % Saturation 17 L (20-50) % Transferrin 209 (192-382) mg/dL Total Bilirubin 0.6 (0.2-1.0) mg/dL AST 26 (10-42) IU/L ALT 22 (10-60) IU/L Alkaline Phosphatase 69 (42-121) IU/L Total Protein 7.0 (6.7-8.2) g/dL Albumin 3.2 (3.2-5.5) g/dL Globulin 3.8 (2.1-4.2) g/dL Albumin/Globulin Ratio 0.8 L (1.0-2.2) 12/04/17 Range/Units 16:31 WBC (4.8-10.8) x10^3/uL RBC (4.20-5.40) 10^6/uL Hgb (12.0-16.0) g/dL Hct (37.0-47.0) % MCV (81.0-99.0) fL MCH (27.0-31.0) pg MCHC (32.0-36.0) g/dL RDW (12.0-15.0) % Plt Count (130-450) 10^3/uL MPV (7.9-10.8) fL Neut # (1.5-6.6) 10^3/uL Lymph # (1.5-3.5) 10^3/uL [place] # (0.0-1.0) 10^3/uL Eos # (0.0-0.7) 10^3/uL Baso # (0.0-0.1) 10^3/uL Absolute Nucleated RBC x10^3/uL Nucleated RBC % /100WBC Sodium (135-145) mmol/L Potassium (3.5-5.0) mmol/L Chloride (101-111) mmol/L Carbon Dioxide (21-32) mmol/L Anion Gap (6-13) BUN (6-20) mg/dL Creatinine (0.4-1.0) mg/dL Estimated GFR (MDRD) (>89) Glucose (70-100) mg/dL POC Whole Bld Glucose 247 H (70 - 100) mg/dL Calcium (8.5-10.3) mg/dL Iron (28-170) ug/dL TIBC (250-450) ug/dL % Saturation (20-50) % Transferrin (192-382) mg/dL Total Bilirubin (0.2-1.0) mg/dL AST (10-42) IU/L ALT (10-60) IU/L Alkaline Phosphatase (42-121) IU/L Total Protein (6.7-8.2) g/dL Albumin (3.2-5.5) g/dL Globulin (2.1-4.2) g/dL Albumin/Globulin Ratio (1.0-2.2) Assessment/Plan - Problem List (1) Asthmatic bronchitis with acute exacerbation Impression: Patient suffers from life-long asthma and is typically controlled using a single inhaler Breo-Ellipta at home. This chronic condition has lengthened her sick time, and made air-way clearance more challenging for her. Plan: Continue IV steroids, nebulizers, and incentive spirometry. Qualifiers: Asthma severity: moderate Asthma persistence: persistent Qualified Code(s ): J45.41 - Moderate persistent asthma with (acute) exacerbation (2) Diabetes mellitus with hyperglycemia Impression: Patient admits to being a long-standing diabetic. Her main exacerbating factor is her profound morbid obesity with a BMI of 52.1. Exercise is difficult due to the radiation that she received for her bone mets that have left residual left leg sciatic pain and weakness.Patient's latest HgA1C is 8.3%. She has been running high while inpatient, so adjustments to Lantus have been made. Plan: Continue SSI, lantus, and blood sugar checks. Plan to taper steroids as soon as medically appropriate based on symptoms to not further exacerbate hyperglycemia. Qualifiers: Diabetes mellitus type: type 2 Diabetes mellitus care home insulin use: with [employer] use Qualified Code(s): E11.65 - Type 2 diabetes mellitus with hyperglycemia; Z79.4 - senior care (current) use of insulin; Z79.4 - senior care ( current) use of insulin; Z79.4 - senior care (current) use of insulin; Z79.4 - long term care phlebotomist (current) use of insulin (3) UTI (urinary tract infection) Impression: Patient admits to reoccurring UTI's for the past year. She believes this has become worse after her spinal surgery and says that she may have residual incontinence post procedure. She has since suffered from urinary incontinence, but can still control her bowels. She states that her only symptom is frequency , and urgency. She says that when she urinates, sometimes it is a very small amount "about a Tablespoon". She admits to less dysuria that is now resolved when asked. Plan: Preliminary UA shows e.coli, so IV levofloxacin was being given and will continue in PO form upon discharge. Patient offered Pure Wick, but refused. She should partake in a regular toileting schedule. Qualifiers: Urinary tract infection type: acute cystitis Hematuria presence: without hematuria Qualified Code(s): N30.00 - Acute cystitis without hematuria (4) Breast cancer metastasized to bone Impression: She is currently on Capecitabine PO with a recent schedule one week on, one week off. She has not been able to take this past week's dosing due to illness. The status of her cancer is in remission. She states that per her oncologist, after her acute illness she can likely resume her treatment. Plan: Continue previous schedule as per oncology.
[2017-12-05] MEDS ORDERED: INSULIN GLARGINE 300 UNIT/3 ML PEN SUBQ SCH (15:12)
[2017-12-05] MEDS ORDERED: amLODIPine 5 MG TABLET PO SCH (15:14)
[2017-12-05] MEDS ORDERED: CARBOXYMETHYLCELLULOSE OPHTH DROPS EACHEYE PRN (16:13)
[2017-12-05] MEDS: guaiFENesin 600 MG TABLET PO SCH ×2 (17:29→21:44)
[2017-12-05] MEDS: levoFLOXacin 500 MG/100 ML 500 MG/100 ML BAG IV SCH (18:59)
[2017-12-05] MEDS: SODIUM CHLORIDE FLUSH 0.9% 10 ML SYRINGE IVP PRN (21:45)
[2017-12-05] MEDS: PREGABALIN 25 MG CAPSULE PO SCH (21:45)
[2017-12-05] MEDS ORDERED: SODIUM CHLORIDE FLUSH 0.9% 10 ML SYRINGE ONE (21:46)
[2017-12-06] MEDS: POLYMYXIN B/TRIMETH OPHTH DROPS EACHEYE SCH ×5 (00:04→12:06)
[2017-12-06] MEDS: SODIUM CHLORIDE FLUSH 0.9% 10 ML SYRINGE IVP SCH (05:58)
[2017-12-06 06:20] LABS: MONOCYTES # (AUTO) 0.4 10^3/uL (0.0-1.0)
[2017-12-06 06:23] LABS: BASOPHILS % (AUTO) 0.4 %; HGB - HEMOGLOBIN 12.8 g/dL (12.0-16.0); LYMPHOCYTES # (AUTO) 0.7 10^3/uL (1.5-3.5); LYMPHOCYTES % (AUTO) 9.6 %; MEAN CORPUSCULAR HEMOGLOBIN 31.3 pg (27.0-31.0); MEAN CORPUSCULAR HGB CONC 31.8 g/dL (32.0-36.0); MEAN CORPUSCULAR VOLUME 98.4 fL (81.0-99.0); MEAN PLATELET VOLUME 7.6 fL (7.9-10.8); MONOCYTES % (AUTO) 6.1 %; NEUTROPHILS % (AUTO) 83.9 %; PLT - PLATELET COUNT 229 10^3/uL (130-450); RED BLOOD COUNT 4.09 10^6/uL (4.20-5.40); RED CELL DISTRIBUTION WIDTH 15.1 % (12.0-15.0); WHITE BLOOD COUNT 7.1 x10^3/uL (4.8-10.8)
[2017-12-06 06:27] LABS: ALBUMIN 3.1 g/dL (3.2-5.5); ALBUMIN/GLOBULIN RATIO 0.8 (1.0-2.2); BILIRUBIN,TOTAL 0.6 mg/dL (0.2-1.0); CALCIUM 8.6 mg/dL (8.5-10.3); CREATININE 0.6 mg/dL (0.4-1.0); TOTAL PROTEIN 6.8 g/dL (6.7-8.2)
[2017-12-06 06:46] LABS: PLATELET ESTIMATE, MANUAL NORMAL (130-450,000) (NORMAL); PLATELET MORPHOLOGY NORMAL APPEARANCE (NORMAL); RBC MORPHOLOGY (MULTIPLE) NORMAL APPEARANCE (NORMAL)
[2017-12-06] MEDS: BUDESONIDE 0.5 MG/2 ML NEB INH SCH (07:20)
[2017-12-06] MEDS: LEVALBUTEROL 1.25 MG/3 ML NEB INH SCH (07:20)
[2017-12-06 07:42] VITALS: BP 160/80
[2017-12-06] MEDS: INSULIN ASPART 300 UNIT/3 ML PEN SUBQ SCH ×4 (08:50→12:06)
[2017-12-06] MEDS: FAMOTIDINE 20 MG TABLET PO SCH (08:54)
[2017-12-06] MEDS: MELOXICAM 7.5 MG TABLET PO SCH (08:54)
[2017-12-06] MEDS: CARVEDILOL 3.125 MG TABLET PO SCH (08:54)
[2017-12-06] MEDS: guaiFENesin 600 MG TABLET PO SCH (08:54)
[2017-12-06] MEDS: ENOXAPARIN 40 MG/0.4 ML SYRINGE SUBQ SCH (08:54)
[2017-12-06] MEDS: OXYMETAZOLINE NASAL SPRAY NAS SCH (08:55)
[2017-12-06] MEDS: methylPREDNISolone SUCCINATE 40 MG/ML VIAL IVP SCH (08:55)
[2017-12-06] MEDS: POLYETHYLENE GLYCOL 3350 17 GM PACKET PO SCH (08:56)
--- NOTE | 2017-12-06 13:36 | DISCHARGE SUMMARY ---
Discharge Summary Admit Date: 12/02/17 Discharge Date: 12/06/17 Discharging Provider: DORCAS Simpson Primary Care Provider: aShil Hatfield Code Status: Attempt Resuscitation Condition at Discharge: Good Discharge Disposition: Home, Self Care - DIAGNOSES Admission Diagnoses: Unspecified asthma, uncomplicated (J45.909) Type 2 diabetes mellitus without complications (E11.9) Malignant neoplasm of unspecified site of unspecified female breast (C50.919) Urinary tract infection, site not specified (N39.0) Discharge Diagnoses with Status of Each Condition: Asthmatic bronchitis (J45.909) chronic, controlled. DM (diabetes mellitus) (E11.9) chronic, controlled. Breast cancer metastasized to bone (C50.919) ongoing, stable. UTI (urinary tract infection) (N39.0) resolved, chronic and Keflex PO daily is recommended. - HPI History of Present Illness: Ana Pendleton is a morbidly obese 71-year old white female with a past medical history of ashtma, diabetes mellitus type 2, breast cancer with mets to the bone , for which she is on chemotherapy through the [facility], stable aortic stenosis, and frequent UTIs. The patient states that she normally has her asthma under control, except for this past summer when the weather was very smokey ans she had an asthma exacerbation, requiring chronic oxygen dependence. About a week ago she developed a fever, cough, sputum production, wheezing and increased shortness of breath despite inhaler use. She most recently saw her PCP who tested her for influenza A & B that were negative. Today she presented to the ED with severe SOB, audible wheezing, and a prolonged expiratory phase. She received continuous Xopenex nebulizer treatments, IV steroid bolus and had little improvement, so she will be admitted for observation overnight. - HOSPITAL COURSE Hospital Course: The following problems/diagnoses were prevalent during this hospital stay: Asthmatic bronchitis with acute exacerbation: Patient suffers from life-long asthma and is typically controlled using a single inhaler Breo-Ellipta at home. This chronic condition has lengthened her sick time, and made air-way clearance more challenging for her. Patient was continued on IV steroids, nebulizers, and incentive spirometry. Diabetes mellitus with hyperglycemia: Patient admits to being a long-standing diabetic. Her main exacerbating factor is her profound morbid obesity with a BMI of 52.1. Exercise is difficult due to the radiation that she received for her bone mets that have left residual left leg sciatic pain and weakness.Patient 's latest HgA1C is 8.3%. She has been running high while inpatient, so adjustments to Lantus have been made. Patient was continued on SSI, lantus, and blood sugar checks. She was given a steroid taper upon discharge. UTI: Patient admits to reoccurring UTI's for the past year. She believes this has become worse after her spinal surgery and says that she may have residual incontinence post procedure. She has since suffered from urinary incontinence, but can still control her bowels. She states that her only symptom is frequency , and urgency. She says that when she urinates, sometimes it is a very small amount "about a Tablespoon". She admits to less dysuria that is now resolved when asked. UA shows e.coli, so IV levofloxacin was being given and was continued in a PO form upon discharge. Patient was encouraged to partake in a regular toileting schedule. Patient was instructed to continue on Keflex daily to be used as a prophylaxis due to complaints of frequent UTI's, likely caused by previous radiation. Breast cancer with mets to bone: She is currently on Capecitabine PO with a recent schedule one week on, one week off. She has not been able to take this past week's dosing due to illness. The status of her cancer is in remission. She states that per her oncologist, after her acute illness she can likely resume her treatment. Patient is encouraged to continue previous schedule as per oncology. Disposition: Patient was discharged in stable condition with new prescriptions and should follow up with her PCP within a week. - ALLERGIES Allergies/Adverse Reactions: Allergies Allergy/AdvReac Type Severity Reaction Status Date / Time erythromycin base AdvReac Severe Itching Verified 12/02/17 16:36 [Erythromycin Base] ketamine AdvReac Severe Hallucinati Verified 12/02/17 16:36 ons Latex, Natural Rubber AdvReac Mild Itching Verified 12/02/17 16:36 codeine [Codeine] AdvReac Anxiety Verified 12/02/17 16:36 - MEDICATIONS Home Medications: Ambulatory Orders Medication Instructions Recorded Confirmed Cholecalciferol (Vitamin D3) 6,000 unit PO DAILY 05/16/13 12/02/17 [Vitamin D3] Calcium Carb/Vit D3/Minerals 4 each PO DAILY 06/13/13 12/02/17 [Calcium 1,200 mg Tablet Chew] Carvedilol 6.25 mg PO DAILY 06/13/13 12/02/17 Metformin HCl 500 mg PO QPM PRN 04/15/14 12/03/17 Insulin Glargine,Hum.rec.anlog 50 unit SQ DAILY 05/13/14 12/02/17 [Lantus] Prochlorperazine [Compazine] 5 mg PO Q6H PRN 05/13/14 12/02/17 Insulin Aspart [Novolog] 25 units SQ AC 02/17/15 12/03/17 Ondansetron HCl [Zofran] 4 - 8 mg PO Q6H PRN 10/01/15 12/02/17 Capecitabine 2,000 mg PO BID 07/02/17 12/02/17 Meloxicam 7.5 mg PO DAILY 10/10/17 12/02/17 Pregabalin [Lyrica] 50 mg PO QPM 10/10/17 12/02/17 Albuterol Sulfate [Proair 2 puffs INH Q4H PRN 12/03/17 12/03/17 Respiclick] Fluticasone/Vilanterol [Breo 1 puffs INH DAILY 12/03/17 12/03/17 Ellipta 200-25 Mcg INH] Benzonatate [Tessalon] 100 mg PO TID PRN #30 capsule 12/06/17 Clindamycin HCl [Clindamycin 300MG 600 mg PO BID 10 Days #20 capsule 12/06/17 CAP] Polymyxin B/Trimeth Ophth Drop 1 drops EACHEYE Q3HR #1 btl 12/06/17 [Polytrim Ophth Drops] Prednisone 10 mg PO DAILY 6 Days #18 tab.ds.pk 12/06/17 Saccharomyces Boulardii [Florastor] 250 mg PO BID 14 Days #28 capsule 12/06/17 amLODIPine [Norvasc] 5 mg PO DAILY #30 tablet 12/06/17 cephALEXin [Keflex] 250 mg PO DAILY #30 capsule 12/06/17 guaiFENesin [Mucinex] 600 mg PO BID #20 tablet 12/06/17 levoFLOXacin [Levofloxacin] 500 mg PO DAILY 7 Days #7 tablet 12/06/17 - PHYSICAL EXAM AT DISCHARGE General Appearance: positive: No acute distress, Alert Eyes Bilateral: positive: Normal inspection, Other (erythema, bilaterally) ENT: positive: ENT inspection nml, Pharynx nml, Dry mucous membranes Neck: positive: Nml inspection, Thyroid nml, No JVD, Stiff neck Respiratory: positive: Chest non-tender, No respiratory distress, Wheezes Cardiovascular: positive: Irregularly irregular, Systolic murmur, Diastolic murmur, Decreased pulse(s) Peripheral Pulses: positive: 1+ Abdomen: positive: Non-tender, Nml bowel sounds, Hepatomegaly Back: positive: Nml inspection Skin: positive: No rash, Warm, Dry Extremities: positive: Non-tender, Pedal edema (chronic), Joint swelling Neurologic/Psychiatric: positive: Oriented x3, CN's nml (2-12), Motor nml, Sensation nml, Depressed mood/affect Reflexes: Bicep (R): 2+, Bicep (L): 2+ - LABS Result Diagrams: 12/06/17 05:50 12/06/17 05:50 - DIAGNOSTIC IMAGING Diagnostic Imaging Results: Final report reviewed - FOLLOW UP Follow Up: Disposition: Home, Self Care Condition: Good Prescriptions: Polymyxin B/Trimeth Ophth Drop [Polytrim Ophth Drops] 1 drops EACHEYE Q3HR #1 btl amLODIPine [Norvasc] 5 mg PO DAILY #30 tablet Benzonatate [Tessalon] 100 mg PO TID PRN #30 capsule PRN Reason: Cough cephALEXin [Keflex] 250 mg PO DAILY #30 capsule Clindamycin HCl [Clindamycin 300MG CAP] 600 mg PO BID 10 Days #20 capsule guaiFENesin [Mucinex] 600 mg PO BID #20 tablet levoFLOXacin [Levofloxacin] 500 mg PO DAILY 7 Days #7 tablet Prednisone 10 mg PO DAILY 6 Days #18 tab.ds.pk Saccharomyces Boulardii [Florastor] 250 mg PO BID 14 Days #28 capsule Diet: Regular Activity Restrictions: No Restrictions Shower Restrictions: No Driving Restrictions: No Weight Bearing: Full Weight Additional Instructions or Follow Up instructions: You came in with UTI symptoms of urgency and frequency. A sample was taken and grew out e.coli. You also had an asthma exacerbation and the primary cause was likely your sinus drainage. Please resume all home medications and take as directed. I have increased your calcium channel pierce to a full 5mg tablet due to high blood pressure. Complete your course of steroid and antibiotic. You have been prescribed Keflex 250mg daily due to your frequent UTIs, this is a prophylactic. - TIME SPENT Time Spent in Discharge (Minutes): 60
== END 2017-12-06 15:07 | disposition home or self-care (01) | DRG 202 ==
LOC: ED 16:10 → OBS 20:18 → OBSVTOIN 12-03 09:07 → MS2 12-03 13:21
PROVIDERS: ADMIT Internal Medicine; ATTEND Nurse Practitioner
DX: J45.41 Moderate persistent asthma with (acute) exacerbation (principal); N30.00 Acute cystitis without hematuria; C79.51 Secondary malignant neoplasm of bone; Z68.43 Body mass index [BMI] 50.0-59.9, adult; E11.65 Type 2 diabetes mellitus with hyperglycemia; B96.20 Unspecified Escherichia coli [E. coli] as the cause of diseases classified elsewhere; C50.919 Malignant neoplasm of unspecified site of unspecified female breast; I35.0 Nonrheumatic aortic (valve) stenosis; I10 Essential (primary) hypertension; G89.29 Other chronic pain; M54.9 Dorsalgia, unspecified; M81.0 Age-related osteoporosis without current pathological fracture; M19.90 Unspecified osteoarthritis, unspecified site; E66.9 Obesity, unspecified; R35.0 Frequency of micturition; R39.15 Urgency of urination; M54.32 Sciatica, left side; R53.1 Weakness; Z99.81 Dependence on supplemental oxygen; Z79.4 Long term (current) use of insulin; Z79.899 Other long term (current) drug therapy; Z87.440 Personal history of urinary (tract) infections
CPT/HCPCS: 36415; 71046; 80048; 80053; 81001; 81003; 83036; 83540; 83605; 83690; 83735; 83880; 84100; 84466; 85025; 87070; 87086; 87205; 87275; 87276; 94640; 96374; 96376; 99283; 99284

== ENCOUNTER 2017-12-21 20:36 | Outpatient (CLI) | payer MEDICARE, OTHER ==
--- NOTE | 2017-12-21 21:24 | CONSULTATION NOTE ---
Palliative Care Follow Up - Referral Referring Provider: Dr. Patricia Hatfield Time of Visit: 11:15-12:00 Referral setting: Home (Patient is seen in her home setting secondary is considerable and taxing effort for her to leave the home as well as painful to be upright for long periods of time.) Referral Reason: Metastatic Breast Cancer/Unstageable decub buttocks - Information Sources Records reviewed: Previous records reviewed History/Review of Systems obtained from: Patient Exam limitations: No limitations - History of Present Illness Update Brief HPI Update: This is a 72-year-old woman with metastatic breast cancer to the sacrum, right iliac bone, left ninth rib, right humeral head, and lumbar spine. She is continuing on Xeloda, low dose 1 week on 1 week off, but had been on hold secondary to her recent hospitalization. She been at [facility] from to 12/06/17 for exacerbation of her asthma, bronchitis, and a UTI. She continues with some residual cough, tightness, and now presents with a decub on her left buttock. Her pain has improved dramatically, this is attributed to her radiation, she does have still bilateral shoulder pain, this does appear more osteoarthritic in description, is maintained on meloxicam 7.5 mg in the a.m. and Lyrica 50 mg in the p.m. She did spike a temp yesterday of 101.6, with some slight chills, she had just started her Xeloda back on Tuesday, today she is afebrile, she denies symptoms of U TI, she reports this is usually urgency and frequency are her tell signs. Social History - Living Situation Living arrangement: At home Living Situation: With spouse/s.o. Medications/Allergies - Medications Home Medications: Ambulatory Orders Medication Instructions Recorded Confirmed Cholecalciferol (Vitamin D3) 5,000 unit PO DAILY 05/16/13 12/21/17 [Vitamin D3] Calcium Carb/Vit D3/Minerals 2 each PO DAILY 06/13/13 12/02/17 [Calcium 1,200 mg Tablet Chew] Carvedilol 6.25 mg PO DAILY 06/13/13 12/21/17 Metformin HCl 500 mg PO QPM PRN 04/15/14 12/21/17 Insulin Glargine,Hum.rec.anlog 50 unit SQ ACHS 05/13/14 12/21/17 [Lantus] Prochlorperazine [Compazine] 5 mg PO Q6H PRN 05/13/14 12/21/17 Insulin Aspart [Novolog] 25 units SQ AC 02/17/15 12/21/17 Ondansetron HCl [Zofran] 4 - 8 mg PO Q6H PRN 10/01/15 12/21/17 Capecitabine 2,000 mg PO BID 07/02/17 12/21/17 Meloxicam 7.5 mg PO DAILY 10/10/17 12/21/17 Pregabalin [Lyrica] 50 mg PO QPM 10/10/17 12/21/17 Albuterol Sulfate [Proair 2 puffs INH Q4H PRN 12/03/17 12/03/17 Respiclick] Fluticasone/Vilanterol [Breo 1 puffs INH DAILY 12/03/17 12/21/17 Ellipta 200-25 Mcg INH] Saccharomyces Boulardii [Florastor] 250 mg PO BID 14 Days #28 capsule 12/06/17 12/21/17 amLODIPine [Norvasc] 5 mg PO DAILY #30 tablet 12/06/17 12/21/17 Insulin Glargine,Hum.rec.anlog 30 unit SQ .AM/LUNCH 12/21/17 12/21/17 [Basaglar Kwikpen U-100] Ipratropium/Albuterol [Duoneb] 1 amp INH Q4HR PRN 12/21/17 12/21/17 guaiFENesin [Mucinex] 600 mg PO BID PRN 12/21/17 12/21/17 - Allergies Allergies/Adverse Reactions: Allergies Allergy/AdvReac Type Severity Reaction Status Date / Time erythromycin base AdvReac Severe Itching Verified 12/02/17 16:36 [Erythromycin Base] ketamine AdvReac Severe Hallucinati Verified 12/02/17 16:36 ons Latex, Natural Rubber AdvReac Mild Itching Verified 12/02/17 16:36 codeine [Codeine] AdvReac Anxiety Verified 12/02/17 16:36 Review of Systems - Constitutional Constitutional: reports: Fatigue, Fever (last [id number];), Poor appetite - Eyes Eyes: reports: Vision loss, Corrective lenses - Ears, Nose & Throat Ears, Nose & Throat: reports: Postnasal drainage, Dry mouth - Cardiovascular Cardiovascular: reports: Decr. exercise tolerance - Respiratory Respiratory: reports: Cough, Sputum production ("milky white"), Wheezing ( managed with duoneb TID), SOB with exertion - Gastrointestinal Gastrointestinal: reports: Early satiety - Genitourinary Genitourinary: reports: Incontinence (mild). denies: Dysuria, Frequency, Urgency, Hematuria - Musculoskeletal Musculoskeletal: reports: Muscle pain, Back pain, Muscle aches, Stiffness, Limited range of motion, Muscle weakness, Assistive devices (uses walker leans heavily for weight relief off pelvis; Is not currently going to PT as her PCP recommended she avoid going out in public with the flu risk) - Integumentary Integumentary: reports: Other (complains of sore on buttock) - Neurological Neurological: reports: Memory problems (word finding; "chemo brain"), Pre- existing deficit, Abnormal gait - Psychiatric Psychiatric: reports: Anxiety - Endocrine Endocrine: reports: Diabetes type 2 (reports currently good control) - Hematologic/Lymphatic Hematologic/Lymphatic: reports: Anemia, Recurrent infections (recent hospitalization for bronchitis/uti) - All Other Systems All Other Systems: reports: Reviewed and negative Physical Exam - Vital Signs Temperature: 98.2 C Pulse Rate: 60 Respiratory Rate: 20 O2 Saturation: 95 (ra @ rest) Blood Pressure: 132/72 - Physical Exam General Appearance: positive: Alert, Anxious Eyes Bilateral: positive: Conjunctivae nml ENT: positive: ENT inspection nml, No signs of dehydration Neck: positive: No JVD, Trachea midline Cardiovascular: positive: Regular rate & rhythm Respiratory: positive: Diminished in bases. negative: Wheezes, Rales, Rhonchi Abdomen: positive: Non-tender, Soft, Nml bowel sounds, Obese Skin: positive: Pallor, Pressure wound (left buttock with thickened eschar 1.0 x 2.0; and reddened pressure in butt cheeks pressing together; Patient sleeps in recliner, scooted down, this is her most comfortable position. She does have an alternative recliner she can sleep or reposition him.) Extremities: positive: Pedal edema (trace up to mid calf) Neurologic/Psychiatric: positive: Oriented x3, Mood/affect nml Palliative Care - POLST Patient has POLST: No Pain: Pain improved, Location (bilateral shoulder pain; increase stiffness in am ; limited ROM; exacerbated with using walker and pressure; lower back and hip pain improved; leg pain/sharp shooting controlled with only once a day lyrica 50 mg at bedtime) Tiredness/Fatigue: Moderate (4-6) Drowsiness/Sedation: Mild (1-3) Nausea: Mild (1-3) (new with starting back on xeloda) Depression: Mild (1-3) Anxiety: Moderate (4-6) Dyspnea: Moderate (4-6) Anorexia: Mild (1-3) Sleep: Variable sleep pattern Constipation: No Feelings of wellbeing/Perceived Quality of Life: Fair, Improved Performance Status: Patient receives some support with set up for bathing, she is able to ambulate short distances with her walker. Her does do meal prep and provide support, patient is mostly chair/recliner bound. She is able to get to the bathroom. I would put at a PPS of 50% - Palliative Care Discussion: Patient very anxious as far as restarting chemotherapy, recent temperature, recent hospitalization. She is feeling better, denies depression, continues to perceive her current quality of life is acceptable, though it is limited. We did not really examine advanced directives today, she had multiple symptoms to focus on. Impression and Recommendations - Palliative Care Impression: This is a 72-year-old woman with metastatic breast cancer to multiple bones, with recent hospitalization for exacerbation of her asthma, bronchitis, and UTI. Her pain is really responded to radiation, and currently managed. She continues to be challenged with her functional decline, but remains quite positive over all regarding her current quality of life Recommendations/Counseling Done: 1. FUO. Patient currently afebrile, denies any symptoms that are usual for her UTI, did provide her with hat and specimen cup, she is to notify myself or her PCP if she does become symptomatic. Her respiratory symptoms do appear to be improving, only variable over the last week as she is just restarted her chemotherapy. Counseling regarding signs and symptoms to contact PCP, myself at the [facility]. Remain concerned with her intermittent UTIs, if patient may have neurogenic bladder given her involvement of her lumbar spine. 2. Asthmatic bronchitis. This is currently controlled, she does have some residual cough, and is continuing with the duo nebs 3 times a day. Her lungs do sound quite good though, and she is noting improvement. 3. Muscle weakness. Patient had been making actually small steps and progress with her physical therapy. Patient remains mostly recliner bound, encouraged her when she is up to the bathroom to do extra loops, frequent repositioning, and follow-through on her home exercise program. 4. Unstageable decub on buttocks. Given location and patient's limitations, counseling done on pressure relief, she does have some gel cushions that she will use in her recliner. Instructed currently to use the Desitin for protection until scab off, and then to obtain cavil on barrier cream and use twice daily. Also discussed "recliner but" need to reposition back and forth off of hips, she is unable to be comfortable on couch or bed, she does understand and instruction given on mechanics for decreasing further skin issues with pressure. Time Spent: 45 minutes with good than 50% of this done in counseling regarding symptom management, pressure relief, management of her decub, addressing anxiety and depression as well as signs and symptoms of infection.
== END 2017-12-21 20:37 | disposition home or self-care (01) ==
LOC: PC 20:36
PROVIDERS: ATTEND Nurse Practitioner Adult Health
DX: Z51.5 Encounter for palliative care (principal); M62.81 Muscle weakness (generalized); L89.320 Pressure ulcer of left buttock, unstageable; C50.919 Malignant neoplasm of unspecified site of unspecified female breast; C79.51 Secondary malignant neoplasm of bone; J45.909 Unspecified asthma, uncomplicated; E11.9 Type 2 diabetes mellitus without complications; Z79.4 Long term (current) use of insulin; Z79.899 Other long term (current) drug therapy; Z87.440 Personal history of urinary (tract) infections
CPT/HCPCS: 99349

== ENCOUNTER 2017-12-24 08:00 | Outpatient (CLI) | payer MEDICARE, OTHER ==
[2017-12-24 19:03] LABS: BILIRUBIN,URINE NEGATIVE (NEGATIVE); GLUCOSE, URINE (UA) 100 mg/dL (NEGATIVE); KETONES,URINE (UA) NEGATIVE (NEGATIVE); LEUKOCYTE ESTERASE, URINE SMALL (NEGATIVE); NITRITE,URINE POSITIVE (NEGATIVE); OCCULT BLOOD,URINE NEGATIVE (NEGATIVE); PROTEIN,URINE NEGATIVE (NEGATIVE); UROBILINOGEN,URINE 0.2 (NORMAL) E.U./dL (NORMAL)
[2017-12-24 19:10] LABS: CLARITY,URINE CLOUDY (CLEAR)
[2017-12-24 19:21] LABS: BACTERIA,URINE Many /HPF (None Seen); RBC,URINE 0-5 /HPF (0-5); SQUAMOUS EPITHELIAL CELL,UR FEW Squamous (<= Few)
== END 2017-12-24 08:01 | disposition home or self-care (01) ==
LOC: LAB.R 08:00
PROVIDERS: ATTEND Nurse Practitioner Adult Health
DX: N39.0 Urinary tract infection, site not specified (principal)
CPT/HCPCS: 81001; 81003; 87077; 87086

== ENCOUNTER 2018-01-11 12:30 | Outpatient (CLI) | payer MEDICARE, OTHER ==
--- NOTE | 2018-01-11 17:57 | CONSULTATION NOTE ---
Palliative Care Follow Up - Referral Referring Provider: Dr. Leonard Bonilla Time of Visit: [id number] Referral setting: Home (Home visit made secondary considerable and taxing effort for the patient to leave the home, patient does not tolerate extended periods of time sitting, home visit to facilitate counseling and extended time) Referral Reason: Metastatic Breast CA/Depresssion - Information Sources Records reviewed: Previous records reviewed History/Review of Systems obtained from: Patient Exam limitations: No limitations - History of Present Illness Update Brief HPI Update: This is a 72-year-old woman with metastatic breast cancer to the bones. She has known metastatic disease to the sacrum, right iliac bone, left ninth rib, right femoral head, and lumbar spine. She most recently had radiation treatment to the sacrum and lumbar spine L4, in late fall. She has been on Xeloda since with 1 week on, and 1 week off but has had a interrupted with recent hospitalization and infection. He has recently been hospitalized at [facility] late November, for exacerbation of her asthma, bronchitis, and UTI. When I saw her on there was concern for recurrent UTI, she did follow-up with a UA which was positive, and was treated with Bactrim DS for 10 days which she recently completed. She reports resolution of symptoms, though she does have some intermittent sinusitis and nasal congestion, her respiratory symptoms have improved and know longer is needing her nebulizer. Her Xeloda schedule was delayed until resolution of her infection. Today I do find her much improved, no signs or symptoms of UTI, her respiratory symptoms are improving, she does have some increased energy but again remains quite limited. This is a result of both her pain, and her morbid obesity, as well as her level of fatigue. Her pain is well controlled on her meloxicam 7.5 mg in the a.m. and Lyrica 50 mg in the p.m. Her stage II decub is improving, she does have depressive symptoms and is positive for anxiety. Social History - Living Situation Living arrangement: At home Living Situation: With spouse/s.o. (She lives at home with her Richie, she does need some assistance but is fairly independent. She recently lost her mother, and is continued to grieve. She has many other family members that she interacts with on a regular basis, though she remains quite isolated and homebound.) Medications/Allergies - Medications Home Medications: Ambulatory Orders Medication Instructions Recorded Confirmed Cholecalciferol (Vitamin D3) 5,000 unit PO DAILY 05/16/13 01/11/18 [Vitamin D3] Calcium Carb/Vit D3/Minerals 2 each PO DAILY 06/13/13 01/11/18 [Calcium 1,200 mg Tablet Chew] Carvedilol 6.25 mg PO DAILY 06/13/13 01/11/18 Metformin HCl 500 mg PO QPM PRN 04/15/14 01/11/18 Insulin Glargine,Hum.rec.anlog 50 unit SQ ACHS 05/13/14 01/11/18 [Lantus] Prochlorperazine [Compazine] 5 mg PO Q6H PRN 05/13/14 01/11/18 Insulin Aspart [Novolog] 25 units SQ AC 02/17/15 01/11/18 Ondansetron HCl [Zofran] 4 - 8 mg PO Q6H PRN 10/01/15 01/11/18 Capecitabine 2,000 mg PO .HOLD 07/02/17 01/11/18 Meloxicam 7.5 mg PO DAILY 10/10/17 01/11/18 Pregabalin [Lyrica] 50 mg PO QPM 10/10/17 01/11/18 Albuterol Sulfate [Proair 2 puffs INH Q4H PRN 12/03/17 01/11/18 Respiclick] Fluticasone/Vilanterol [Breo 1 puffs INH DAILY 12/03/17 01/11/18 Ellipta 200-25 Mcg INH] Saccharomyces Boulardii [Florastor] 250 mg PO BID 14 Days #28 capsule 12/06/17 01/11/18 amLODIPine [Norvasc] 5 mg PO DAILY #30 tablet 12/06/17 01/11/18 Ipratropium/Albuterol [Duoneb] 1 amp INH Q4HR PRN 12/21/17 01/11/18 - Allergies Allergies/Adverse Reactions: Allergies Allergy/AdvReac Type Severity Reaction Status Date / Time erythromycin base AdvReac Severe Itching Verified 12/02/17 16:36 [Erythromycin Base] ketamine AdvReac Severe Hallucinati Verified 12/02/17 16:36 ons Latex, Natural Rubber AdvReac Mild Itching Verified 12/02/17 16:36 codeine [Codeine] AdvReac Anxiety Verified 12/02/17 16:36 Review of Systems - Constitutional Constitutional: reports: Fatigue, Weight stable. denies: Fever, Chills - Eyes Eyes: reports: Vision loss - Ears, Nose & Throat Ears, Nose & Throat: reports: Hearing loss (mild with menieres), Nasal congestion (denies sinusitis symptoms), Dry mouth - Cardiovascular Cardiovascular: reports: Decr. exercise tolerance. denies: Chest pain - Respiratory Respiratory: reports: Cough (dry and almost resolved), SOB with exertion - Gastrointestinal Gastrointestinal: reports: Good appetite. denies: Constipation, Diarrhea, Nausea, Reflux/heartburn - Genitourinary Genitourinary: reports: Incontinence. denies: Dysuria, Frequency, Urgency, Hematuria - Musculoskeletal Musculoskeletal: reports: Muscle pain, Back pain, Muscle aches, Stiffness, Limited range of motion, Muscle weakness, Assistive devices (uses 4WW) - Integumentary Integumentary: reports: Dryness, Other (stage II decub) - Neurological Neurological: reports: General weakness, Numbness (left three outer fingers; attributed to cervical stenosis; LE CIPN numbness only), Pre-existing deficit, Abnormal gait - Psychiatric Psychiatric: reports: Depression, Anxiety - Endocrine Endocrine: reports: Diabetes type 2 (BS good range 127 this am) - Hematologic/Lymphatic Hematologic/Lymphatic: reports: Anemia, Recurrent infections - All Other Systems All Other Systems: reports: Reviewed and negative Physical Exam - Vital Signs Temperature: 97.8 C Pulse Rate: 88 Respiratory Rate: 20 O2 Saturation: 93 (ra @ rest) Blood Pressure: 132/84 - Physical Exam General Appearance: positive: No acute distress Eyes Bilateral: positive: Normal inspection ENT: positive: Other (poor dentition) Neck: positive: No JVD, Trachea midline Cardiovascular: positive: Regular rate & rhythm Respiratory: positive: Diminished in bases. negative: Wheezes Abdomen: positive: Soft, Nml bowel sounds, Obese Skin: positive: Pallor, Pressure wound (1 x 3 cm raised area of roughened hypercolloid skin with small amount of eschar on right buttock area filling in; left with moist descquamation filling in abou 0.5 cm x 2 cm; buttock cheeks pressed secondary to obesity; has improved since last seen) Extremities: positive: Pedal edema (trace to one plus in ankles), Other (severe DJD left hip; gait abnormal; uses walker to offload pain thus with increase pain in shoulders; limited ROM bilaterally) Neurologic/Psychiatric: positive: Oriented x3, Weakness, Other (tearful) Palliative Care - POLST Patient has POLST: No Pain: Pain improved, Location (back and hips) Tiredness/Fatigue: Moderate (4-6) Drowsiness/Sedation: Mild (1-3) Nausea: None Depression: Moderate (4-6) Anxiety: Moderate (4-6) Dyspnea: Moderate (4-6) Anorexia: None Sleep: Variable sleep pattern Constipation: No Feelings of wellbeing/Perceived Quality of Life: Fair, Acceptable Performance Status: Has been trying to follow through with home exercise program, is looking forward to follow-up with outpatient, was told by PCP secondary to flu season to wait until mid January to reinitiate.She sleeps mostly in her recliner, is unable to tolerate sleeping in bed though she has tried this a couple times over the last few weeks. The pressure on her spine for laying straight out causes increased pain and discomfort - Palliative Care Discussion: Discussion focused on patient's worries regarding future progression cancer, she found her pain level at its peak and tolerable and would not want to continue life if it became that bad again. She does have a lot of stress reflecting on this. She is aware of the seriousness of her illness, but is not wanting to "leave her behind, or her other family members. She is reflective that her spiritual life is somewhat in limbo, this is often been part of her coping. We did discuss the role of the palliative care feed mill tender and she is in agreement for support. She continues to grieve the loss of her mother, is looking forward to the of a new grandchild, and continues to seek ways to remain positive.Her mother did have hospice at home, with support of her sister, she reports that end-of-life that would be her wish as well. Time spent also reflecting and hoping for the best, as well as preparing for the worst including Legacy work, putting affairs in order, and prioritizing tasks/time. Results - Lab Results Lab results reviewed: Yes Lab and Imaging Results: CA-15 improved 45.9 Impression and Recommendations - Palliative Care Impression: This is a 72-year-old woman with metastatic breast cancer to the bones, recent exacerbation of her asthma, as well as a recurrent UTI. Today she presents as improved, respiratory status stable as well as no further signs or symptoms of infection. The pain is currently managed to her satisfaction, she still has some residual fatigue, continues with challenges regarding her functional decline. Her goals are to focus on quality of life as well as extending quantity as long as the benefits outweigh the burdens. Palliative care support to provide symptom management, anticipatory guidance, and counseling for depression. Recommendations/Counseling Done: 1. 1. Pain of neoplastic origin. Patient currently doing well on her regimen of meloxicam in a.m. and Lyrica and p.m. She does have a referral for a injection for her left hip DJD, did encourage her to follow up as is impacting her functional status. Patient remains quite fearful in the future of another acute pain syndrome, particular around end-of-life, patient may be a candidate for methadone in the future. 2. UTI. Patient reports symptoms have resolved has finished antibiotic, encouraged to push fluids as well as focus on bladder emptying. Suspect some of her recurrent UTI is related to retention with nerve damage from her lumbar spine compression. 3. stage II decub on buttocks. Patient has been using increased pressure relief , as well as repositioning more frequently. She will start using cavil on barrier cream to protect new tissue. 4. Depression. Counseling to normalize current feelings of grief and loss, as well as anticipatory grief. Did discuss the role of spirituality and coping, will make referral to palliative care feed mill tender for home visits. 5. Muscle weakness. Patient has been following through on home exercise program, encouragement and counseling regarding continuing effort, as well as follow-up in getting appointments reestablished to physical therapy. 6. Metastatic breast cancer. Patient on hiatus and Xeloda this week, does appear much improved, will most likely restart next week. Time Spent: 60 minutes with counseling for depression, adjustment to illness, review of symptoms and instruction as well as anticipatory guidance
== END 2018-01-11 12:31 | disposition home or self-care (01) ==
LOC: PC 12:30
PROVIDERS: ATTEND Nurse Practitioner Adult Health
DX: Z51.5 Encounter for palliative care (principal); G89.3 Neoplasm related pain (acute) (chronic); C50.919 Malignant neoplasm of unspecified site of unspecified female breast; C79.51 Secondary malignant neoplasm of bone; F32.9 Major depressive disorder, single episode, unspecified; M62.81 Muscle weakness (generalized); R53.83 Other fatigue; F41.9 Anxiety disorder, unspecified; E11.9 Type 2 diabetes mellitus without complications; Z79.4 Long term (current) use of insulin; Z79.84 Long term (current) use of oral hypoglycemic drugs
CPT/HCPCS: 99350

== ENCOUNTER 2018-02-15 14:14 | Outpatient (CLI) | payer MEDICARE, OTHER ==
--- NOTE | 2018-02-15 21:10 | CONSULTATION NOTE ---
Palliative Care Follow Up - Referral Referring Provider: Dr. Sahil Hatfield Time of Visit: [id number] Referral Reason: Metastatic Breast Cancer to Bones/Pain of neoplastic origin - Information Sources Records reviewed: Previous records reviewed History/Review of Systems obtained from: Patient, Family ( Richie at visit) Exam limitations: No limitations - History of Present Illness Update Brief HPI Update: This is a 72-year-old woman with metastatic breast cancer to the bones, known to sacrum, right iliac bone, right femoral head, and lumbar since September 2010. She has been on multiple hormonal therapies and chemotherapeutic agents, and most recently on Xeloda with scheduled 1 week on 1 week off. She has not received her oral chemotherapy since September 2017 and she has had complications related to infections, and most recently a fall with concern for fracture in her left hip. She saw the orthopedist this last week, repeat x- rays do not show evidence of fracture, though she does have severe DJD in her hip and possible bone metastases. Dr. Mello in discussion with patient, and goals of care, is going to make a referral to the [facility] for possible left hip replacement. She would like to be able to be more ambulatory and walk again. She has been wheelchair-bound since the fall, but is progressing with ambulation for short distances. Because of her bilateral DJD/possible bone metastases in shoulders, she does have difficulty with her rolling walker, and has gotten a prescription for a walker with arm rests to help facilitate her walking and decrease stress on her upper extremities. She did initiate her Xeloda this week, with recurrent nausea and vomiting,and is still feeling somewhat nauseous but it is responding at this point to her ondansetron. She has had in past loose stools. Of note off of her chemo her CA 15-13 antigen went from 2 45.92 /19 to 4/2 had increased to 52.9. She is anxious to be on active treatment again. Social History - Living Situation Living arrangement: At home Living Situation: With spouse/s.o. (Her spouse Richie, carries the weight of most of the household duties, cooking, and assisting with getting her things. Patient has been up more to the dining room table, but is still unable to participate in household tasks) Support System: Patient able to ambulate short distances, she does need some assistance with bathing, does spend most of her time sitting in the recliner. I would put her at a PPS of 50% Medications/Allergies - Medications Home Medications: Ambulatory Orders Medication Instructions Recorded Confirmed Cholecalciferol (Vitamin D3) 5,000 unit PO DAILY 05/16/13 02/15/18 [Vitamin D3] Calcium Carb/Vit D3/Minerals 2 each PO DAILY 06/13/13 02/15/18 [Calcium 1,200 mg Tablet Chew] Carvedilol 6.25 mg PO DAILY 06/13/13 02/15/18 Insulin Glargine,Hum.rec.anlog 50 unit SQ ACHS 05/13/14 02/15/18 [Lantus] Prochlorperazine [Compazine] 5 mg PO Q6H PRN 05/13/14 02/15/18 Insulin Aspart [Novolog] 25 units SQ AC 02/17/15 02/15/18 Ondansetron HCl [Zofran] 4 - 8 mg PO Q6H PRN 10/01/15 02/15/18 Capecitabine 2,000 mg PO .BID 1 WEEK 07/02/17 02/15/18 Meloxicam 7.5 mg PO DAILY 10/10/17 02/15/18 Pregabalin [Lyrica] 50 mg PO QPM 10/10/17 02/15/18 Albuterol Sulfate [Proair 2 puffs INH Q4H PRN 12/03/17 02/13/18 Respiclick] Fluticasone/Vilanterol [Breo 1 puffs INH DAILY 12/03/17 02/15/18 Ellipta 200-25 Mcg INH] amLODIPine [Norvasc] 5 mg PO DAILY #30 tablet 12/06/17 02/15/18 Ipratropium/Albuterol [Duoneb] 1 amp INH Q4HR PRN 12/21/17 02/15/18 Methocarbamol 1 tab PO TID PRN 02/13/18 02/15/18 - Allergies Allergies/Adverse Reactions: Allergies Allergy/AdvReac Type Severity Reaction Status Date / Time erythromycin base AdvReac Severe Itching Verified 12/02/17 16:36 [Erythromycin Base] ketamine AdvReac Severe Hallucinati Verified 12/02/17 16:36 ons Latex, Natural Rubber AdvReac Mild Itching Verified 01/19/18 16:36 codeine [Codeine] AdvReac Anxiety Verified 12/02/17 16:36 Review of Systems - Constitutional Constitutional: reports: Fatigue - Ears, Nose & Throat Ears, Nose & Throat: reports: Dry mouth - Cardiovascular Cardiovascular: reports: Chest pain (reports "rib" strain on right lasting for greater than 24 hours; concerned was increasing mets; currently without pain/ tenderness) - Respiratory Respiratory: reports: Cough (resolved), SOB with exertion - Gastrointestinal Gastrointestinal: reports: Poor appetite (with initiation of chemotherapy; at baseline good appetite), Early satiety. denies: Constipation - Genitourinary Genitourinary: denies: Frequency, Urgency, Hematuria - Musculoskeletal Musculoskeletal: reports: Muscle pain, Back pain, Muscle aches, Stiffness, Limited range of motion, Muscle weakness, Joint pain, Assistive devices (using 4WW; has Rx for new one-given number to [facility] [facility]), Transfer issues (able to better tolerate new wheelchair for longer periods of time for sitting) - Integumentary Integumentary: reports: Other (reports decub almost resolved; is doing pressure relief) - Neurological Neurological: reports: General weakness - Psychiatric Psychiatric: reports: Depression (denies persistant feelings of depression; does have "blue days") - Endocrine Endocrine: reports: Diabetes type 2 (occasionally checks sugars; follows scheduled insulin) - Hematologic/Lymphatic Hematologic/Lymphatic: reports: Recurrent infections (UTIs) - All Other Systems All Other Systems: reports: Reviewed and negative Physical Exam - Vital Signs Temperature: 97.5 C Pulse Rate: 88 Respiratory Rate: 20 O2 Saturation: 96 (ra @ rest) Blood Pressure: 128/72 - Physical Exam General Appearance: positive: No acute distress Eyes Bilateral: positive: Normal inspection ENT: positive: No signs of dehydration. negative: Pharyngeal erythema, Oral lesions Neck: positive: Trachea midline Cardiovascular: positive: Regular rate & rhythm, Diastolic murmur Respiratory: positive: Diminished in bases. negative: Wheezes, Rales, Rhonchi Abdomen: positive: Soft, Nml bowel sounds, Obese Skin: positive: Pallor, Dryness Extremities: positive: Pedal edema (trace) Neurologic/Psychiatric: positive: Oriented x3, Mood/affect nml, Weakness Palliative Care - POLST Patient has POLST: No Pain: Pain improved, Location (Pain is mostly located in the back, bilateral hips left greater than right, increased with walking and weightbearing. Patient does have bilateral shoulder pain right greater than left;With limited range of motion. Patient has attempted to sleep in bed, unable to position himself comfortably on back or hip. Currently using meloxicam in the a.m., and Lyrica 50 mg at bedtime. For exacerbation of pain she is using acetaminophen and occasionally methyl carbinol with relief.) Tiredness/Fatigue: Moderate (4-6) Drowsiness/Sedation: None Nausea: Moderate (4-6), With vomiting (with reinitiation of xeloda) Depression: Mild (1-3) Anxiety: Moderate (4-6) Dyspnea: Mild (1-3) Anorexia: None Sleep: Variable sleep pattern Constipation: No Feelings of wellbeing/Perceived Quality of Life: Fair, Acceptable, No change - Palliative Care Discussion: Patient looking forward to possibility of intervention for her left hip pain and immobility. Is aware the high risk relating her to her comorbidities, thus the referral to [facility]. She is going to weigh benefits and burdens, appointment has not been set yet. Patient has enjoyed flatbed stitcher visits , is aware needs to get out more and decrease her isolation. Does express concern for her and being a burden. Results - Lab Results Lab results reviewed: Yes Impression and Recommendations - Palliative Care Impression: This is a 72 year-old woman with metastatic breast cancer to the bones, is doing better post fall, and has resumed though limited mobility able to ambulate in house. Her pain is currently managed to her satisfaction, her goals of continue to be focus on quality of life as well as continuing treatment extended quantity as long as benefits outweigh her burdens. Palliative care to continue to provide support regarding symptom management, anticipatory guidance, and counseling for depression Recommendations/Counseling Done: 1.Pain of neoplastic origin. Patient originally had exacerbation with recent fall, feels like she is back to baseline, is managing other than when she puts more stress on her bones when she goes out. 2. Stage II decub on buttocks. Patient is using pressure relief measures as well as cavil on barrier cream with good response. 3. Depression. Patient does appear to be doing somewhat better less persistent depressive feelings, is looking forward to ongoing support from palliative care flatbed stitcher. 4. Muscle weakness. Patient with decreased functional status having to be wheelchair-bound while evaluating hip. Awaiting follow-up with you have tab, if not following through on surgery would resume physical therapy. 5. Metastatic breast cancer to the bones. Patient has reinitiated Xeloda this week, reviewed management of nausea and vomiting, need to stay hydrated, and management of diarrhea. Time Spent: 45 minutes with greater than 50% of this done for counseling for side effects of chemotherapy, pain and symptom management, depression, patient to notify me when she has her appointment you have tab, will schedule appointment after the some way benefits of burdens and provide anticipatory guidance as requested.
== END 2018-02-15 14:15 | disposition home or self-care (01) ==
LOC: PC 14:14
PROVIDERS: ATTEND Nurse Practitioner Adult Health
DX: Z51.5 Encounter for palliative care (principal); G89.3 Neoplasm related pain (acute) (chronic); C50.919 Malignant neoplasm of unspecified site of unspecified female breast; C79.51 Secondary malignant neoplasm of bone; F32.9 Major depressive disorder, single episode, unspecified; M62.81 Muscle weakness (generalized); Z79.4 Long term (current) use of insulin; Z79.1 Long term (current) use of non-steroidal anti-inflammatories (NSAID); Z79.899 Other long term (current) drug therapy; E11.9 Type 2 diabetes mellitus without complications; R11.0 Nausea; F41.9 Anxiety disorder, unspecified; Z99.3 Dependence on wheelchair
CPT/HCPCS: 99349

== ENCOUNTER 2018-02-17 08:49 | Outpatient (CLI) | payer MEDICARE, OTHER ==
--- NOTE | 2018-02-17 13:39 | Nuclear Medicine Report ---
EXAM: BONE SCAN EXAM DATE: 02/17/2018 12:47 PM. CLINICAL HISTORY: BREAST CANCER. COMPARISON: bone scan 07/29/2017. Pelvis and left hip radiographs dated 02/13/2018 TECHNIQUE: Following the intravenous administration of 31.6 mCi of technetium 99m MDP and an appropri ate delay, a whole-body scan was performed in anterior and posterior projections. FINDINGS: Exam Quality: Normal overall osseous radiotracer uptake. Physiological tracer uptake in bilateral col lecting systems. Skull: No focal uptake. Thorax: Linear increased uptake in the left posterior ninth rib, appears larger compared to the prior exam. Stable to slightly decreased intensity of uptake corresponding to the medial aspect of the lef t posterior fifth rib. New or more intense focus of increased uptake in the medial right posterior si xth rib. Stable focus of intensely increased uptake in the region of the left clavicular head. Pelvis: Persistent ill-defined areas of increased uptake in the sacrum, mostly right of midline. Pers istent increased uptake corresponding to the left hip joint. Spine: Stable to decreased intensity of uptake corresponding with L4. Stable to decreased intensity o f uptake corresponding to a lesion on the left side of L5. There are small foci of uptake on the righ t and left side of T11, similar appearance compared to prior bone scan. Extremities: Stable intensely increased uptake in the right humeral head/neck. Stable presumed degene rative increased uptake in the right knee and right mid foot. IMPRESSION: 1. Multifocal skeletal metastatic disease. 2. Compared to the prior bone scan, lesion in the left posterior ninth rib appears modestly subjectiv marquez larger and there may be a new or more intense focus of increased uptake in the medial right poste rior sixth rib. 3. Other lesions appear stable or slightly decreased in intensity compared to prior bone scan. [facility] Referring Provider Line: [phone] SITE ID: [id number]
== END 2018-02-17 08:50 | disposition home or self-care (01) ==
LOC: DI 08:49
PROVIDERS: ATTEND Internal Medicine Hematology & Oncology
DX: C50.919 Malignant neoplasm of unspecified site of unspecified female breast (principal); C79.51 Secondary malignant neoplasm of bone
CPT/HCPCS: 78306; A9503

== ENCOUNTER 2018-03-13 13:56 | Outpatient (CLI) | payer MEDICARE, OTHER ==
[2018-03-13 15:06] LABS: HB2 TOTAL 15.7 g/dL; HEMOGLOBIN A1C 1.08 g/dL; HEMOGLOBIN A1C % 8.4 % (4.6-6.2)
== END 2018-03-13 13:57 | disposition home or self-care (01) ==
LOC: LAB 13:56
PROVIDERS: ATTEND Family Medicine
DX: E11.65 Type 2 diabetes mellitus with hyperglycemia (principal)
CPT/HCPCS: 83036

== ENCOUNTER 2018-03-15 13:30 | Outpatient (CLI) | payer MEDICARE, OTHER ==
--- NOTE | 2018-03-15 16:57 | CONSULTATION NOTE ---
Palliative Care Follow Up - Referral Referring Provider: Dr. Leonard Bonilla Time of Visit: [id number] Referral setting: Home Referral Reason: Metastatic Breast Cancer to Bones - Information Sources Records reviewed: Previous records reviewed History/Review of Systems obtained from: Patient Exam limitations: No limitations - History of Present Illness Update Brief HPI Update: This is a 72-year-old woman with metastatic breast cancer to the bones, who has been on multiple hormonal and chemotherapeutic agents. She has had an exacerbation of her pain, specifically located at her left posterior rib, with recent confirmation from her bony scan on 02/17/2018, with also noted new or more intense focus of increased uptake in the medial right posterior sixth rib. Patient has also received radiation for pain to her sacrum, lumbar spine, and right hip. She is awaiting appointment on Tuesday evaluation by an orthopedic oncologist to see if she is a candidate for a hip replacement. She is seeing radiation oncology Dr. Webber, 03/16 in [facility], with hope to be able to radiate left rib. Patient is currently on Xeloda, she is running out of chemotherapeutic options, she is tolerating this better with less nausea at this time. Her pain has been better controlled on the meloxicam 7.5 mg twice daily and Lyrica 50 mg twice daily. She has obtained cannabis oil, has initiated this, with some relief as well. She has been significantly opioid intolerant, resulting in severe nausea and vomiting, and is of concern for pain management in the future. Palliative care and follow-up today regarding pain management, management of psychosocial anxiety and depression, and anticipatory guidance Social History - Living Situation Living arrangement: At home Living Situation: With spouse/s.o. ( provides most of support, remains quite anxious and worried about patient's future, he himself has multiple health problems. She does have a supportive and caring family.) Medications/Allergies - Medications Home Medications: Ambulatory Orders Medication Instructions Recorded Confirmed Calcium Carb/Vit D3/Minerals 2 each PO DAILY 06/13/13 03/15/18 [Calcium 1,200 mg Tablet Chew] Carvedilol 6.25 mg PO DAILY 06/13/13 03/15/18 Insulin Glargine,Hum.rec.anlog 50 unit SQ ACHS 05/13/14 03/15/18 [Lantus] Prochlorperazine [Compazine] 5 mg PO Q6H PRN 05/13/14 03/15/18 Insulin Aspart [Novolog] 25 units SQ AC 02/17/15 03/15/18 Ondansetron HCl [Zofran] 4 - 8 mg PO Q6H PRN 10/01/15 03/15/18 Capecitabine 2,000 mg PO .BID 1 WEEK 07/02/17 03/15/18 Meloxicam 7.5 mg PO BID 10/10/17 03/15/18 Pregabalin [Lyrica] 50 mg PO BID 10/10/17 03/15/18 Albuterol Sulfate [Proair 2 puffs INH Q4H PRN 12/03/17 03/15/18 Respiclick] Fluticasone/Vilanterol [Breo 1 puffs INH DAILY PRN MDD 12/03/17 03/15/18 Ellipta 200-25 Mcg INH] exacerbation amLODIPine [Norvasc] 5 mg PO DAILY #30 tablet 12/06/17 03/15/18 Ipratropium/Albuterol [Duoneb] 1 amp INH Q4HR PRN 12/21/17 03/15/18 Methocarbamol 1 tab PO TID PRN 02/13/18 03/15/18 - Allergies Allergies/Adverse Reactions: Allergies Allergy/AdvReac Type Severity Reaction Status Date / Time erythromycin base AdvReac Severe Itching Verified 12/02/17 16:36 [Erythromycin Base] ketamine AdvReac Severe Hallucinati Verified 12/02/17 16:36 ons Latex, Natural Rubber AdvReac Mild Itching Verified 12/02/17 16:36 codeine [Codeine] AdvReac Anxiety Verified 12/02/17 16:36 Review of Systems - Constitutional Constitutional: reports: Fatigue, Weight stable - Ears, Nose & Throat Ears, Nose & Throat: reports: Nasal congestion (at times), Dry mouth - Cardiovascular Cardiovascular: reports: Decr. exercise tolerance. denies: Chest pain - Respiratory Respiratory: reports: SOB with exertion. denies: SOB at rest (improved not needing neb; put Breo on hold) - Gastrointestinal Gastrointestinal: reports: Change in bowel habits (on xeloda with loose stools but not diarrhea), Reflux/heartburn, Good appetite. denies: Nausea (tolerating better this time;) - Genitourinary Genitourinary: reports: Frequency, Other (no further s/s of UTI; Bactrim resolved last UTI without problems) - Musculoskeletal Musculoskeletal: reports: Back pain, Muscle aches, Stiffness, Muscle weakness, Joint pain, Assistive devices (uses walker with difficulty because of right shoulder pain; left hip pain-to see oncology ortho Tuesday) - Integumentary Integumentary: reports: Dryness, Other (reports tailbone improved; slight scabbing but using Cavilon cream) - Neurological Neurological: reports: General weakness - Psychiatric Psychiatric: reports: Anxiety - Hematologic/Lymphatic Hematologic/Lymphatic: reports: 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 negative: Wheezes, Rales, Rhonchi Abdomen: positive: Soft, Nml bowel sounds, Obese Skin: positive: Pallor, Dryness Extremities: positive: Pedal edema (trace) Neurologic/Psychiatric: positive: Oriented x3, Mood/affect nml Palliative Care - POLST Patient has POLST: No Pain: Pain improved, Location (left rib severe; generalized right shoulder/ different joint pains; currently using lyrica 50 mg BID; Meloxicam 7.5 mg BID with cannabis oil twice a day.) Tiredness/Fatigue: Moderate (4-6) Drowsiness/Sedation: Mild (1-3) Nausea: Mild (1-3) Depression: Mild (1-3) Anxiety: Mild (1-3) Dyspnea: None (just with activity) Anorexia: None Sleep: Sleeps well Constipation: No Feelings of wellbeing/Perceived Quality of Life: Fair, Acceptable Performance Status: Patient is morbidly obese, with her multiple areas of pain, including her left hip, her mobility is limited. She is able to get from sitting to standing, ambulate short distances with her walker but unable to put pressure on that right shoulder. She is able to bathe with assistance from her , as well as stress with minor assistance. She does spend most of her time in the recliner, she does sleep in the recliner secondary to comfort. She is trying to do more pressure relief measures, as far as changing position, chairs, and sleeping and more supportive recliner. - Palliative Care Discussion: Patient's was not present for visit today, patient did take the time an opportunity to discuss more concerns regarding her future, she has multiple questions regarding progression of disease, but understands from her oncologist she could still have an extended period of time of 2-3 years. She does have multiple comorbidities, and understands this may play a role as well. She has some underlying anxiety, addressed questions as best we know in the current situation, she continues to try and remain positive, but we did spend quite a bit of time processing her normal feelings of grief and loss that would be expected with loss of function and increased dependence. Results - Lab Results Lab results reviewed: Yes Impression and Recommendations - Palliative Care Impression: This is a 72-year-old woman with metastatic breast cancer to the bones, with recent exacerbation of her pain, this is mostly located in her left rib that is debilitating. She has a pending radiation appointment tomorrow, currently better managed on her regimen, continues to be limited both functionally and by her pain. Palliative care providing support for pain and symptom management, anticipatory guidance, and counseling for grief and loss. Recommendations/Counseling Done: 1Pain of neoplastic origin. Her hopeful she will get a positive response from radiation, am concerned though she does have underlying asthma, unclear how much of her lung would be in the radiation field. She is currently being managed on her meloxicam 7.5 mg twice daily and Lyrica 50 mg twice daily. We did discuss that point pain improved, to decrease her meloxicam given her chronic kidney insufficiency. She has initiated the cannabis oil, does report some relief mostly of her shoulder pain, not so much the bone lesions. Given will need further tools in the future, counseling regarding considering test dosing methadone 2.5 mg. This would allow understanding if she is going to be able to tolerate this, and also most likely would be effective in her current pain syndrome. Prescription is provided but she will not initiated until she has finished radiation and follow-up appointments. She is agreed to call me when she is ready to test this in the meantime she will obtain prescription and put it and locked box. 2. Depression. She is finding much support with her meetings with the palliative care patent searcher, counseling provided today to normalize her grief and loss process. 3. Advanced care planning. Patient continues to want to defer further conversation around advanced directives, she does have some fairly strong feelings regarding not prolonging suffering, she is wanting to at home comfortable respectful , but wants to defer filling out [facility] at this time. She does worry her who would be the DPOA, may not "want to her to go", thus encouraged would be important to get wishes in format can use as reference. Time Spent: 60 minutes with greater than 50% of this done in counseling Regarding future pain management, current regimen, and opioid safety. Counseling for normal grief and loss and answered patient's questions regarding anticipatory guidance
== END 2018-03-15 13:31 | disposition home or self-care (01) ==
LOC: PC 13:30
PROVIDERS: ATTEND Nurse Practitioner Adult Health
DX: Z51.5 Encounter for palliative care (principal); C50.919 Malignant neoplasm of unspecified site of unspecified female breast; C79.51 Secondary malignant neoplasm of bone; G89.3 Neoplasm related pain (acute) (chronic); J45.909 Unspecified asthma, uncomplicated; F32.9 Major depressive disorder, single episode, unspecified
CPT/HCPCS: 99350

== ENCOUNTER 2018-04-06 09:00 | Outpatient (CLI) | payer MEDICARE, OTHER ==
[2018-04-07 11:20] LABS: CLARITY,URINE CLEAR (CLEAR); LEUKOCYTE ESTERASE, URINE MODERATE (NEGATIVE); NITRITE,URINE NEGATIVE (NEGATIVE); OCCULT BLOOD,URINE TRACE-LYSED (NEGATIVE); PROTEIN,URINE TRACE mg/dL (NEGATIVE); UROBILINOGEN,URINE 0.2 (NORMAL) E.U./dL (NORMAL)
[2018-04-07 11:21] LABS: BILIRUBIN,URINE NEGATIVE (NEGATIVE); GLUCOSE, URINE (UA) NEGATIVE (NEGATIVE); KETONES,URINE (UA) NEGATIVE (NEGATIVE)
[2018-04-07 11:22] LABS: BACTERIA,URINE Many /HPF (None Seen); RBC,URINE 0-5 /HPF (0-5); SQUAMOUS EPITHELIAL CELL,UR MANY Squamous (<= Few)
== END 2018-04-06 23:59 ==
LOC: LAB.R 09:00
PROVIDERS: ATTEND Nurse Practitioner Adult Health
DX: R30.0 Dysuria (principal)
CPT/HCPCS: 81001; 81003; 87086

== ENCOUNTER 2018-04-20 12:30 | Outpatient (CLI) | payer MEDICARE, OTHER ==
--- NOTE | 2018-04-20 16:39 | CONSULTATION NOTE ---
Palliative Care Follow Up - Referral Referring Provider: Dr. Leonard Bonilla Time of Visit: [id number] Referral setting: Home (It is a taxing and considerable effort for the patient to leave the home, secondary to pain and fatigue) Referral Reason: Metastatic Breast Cancer to Bone/Pain of Neoplastic origin/ Dysuria - Information Sources Records reviewed: Previous records reviewed History/Review of Systems obtained from: Patient, Family ( Richie present, but did not participate) Exam limitations: No limitations - History of Present Illness Update Brief HPI Update: This is a 72-year-old woman with metastatic breast cancer to the bones, has had multiple hormonal and chemotherapeutic agents. She is currently receiving maintenance Xeloda 1 week on 1 week off. She has had recent radiation to her clavicle, left side, and collarbone, Is major improvement of her pain. Currently she still has residual right shoulder pain, particularly some sharp shooting actually more in line with like a carpal tunnel syndrome. She still has pain in her hip, this limits her mobility. She is currently managed with her Lyrica 50 mg at bedtime, meloxicam 7.5 mg in the a.m., and CBD oil in midday. She does feel this is currently working, she is going to get the methadone filled today though. Originally we had talked a couple weeks ago, she was having increased dysuria frequency she had large amount of squamous cells and her UA. She did try and push through with fluids and cranberry juice, she reports this did help for short period of time but today presents with every hour voiding, increased frequency, and incontinence. She was also instructed to start on some omeprazole, she does have some early satiety, low grade nausea, and does sleep at an angle. She does have a.m. cough, I would probably attribute this to GERD. She has not been consistent on the omeprazole [address] prescribed, she does have short-term memory issues at times. Her other presenting symptom today is she has progressive breakdown in her buttocks/coccyx area would put it a stage II though most often when I call in description is her "recliner but". She does spend most of her time in the recliner, is unable to tolerate being in the bed. Social History - Living Situation Living arrangement: At home Living Situation: With spouse/s.o. (She recently had visiting family for almost 2 weeks, she found this quite stimulating and uplifting, she did take a 3 day trip though this did exacerbate her pain with the car ride but she did enjoy immensely. Her is her main caregiver, does assist her with ADLs, patient tries to remain independent but is mostly sedentary. I would put her at a PPS of 50%) Medications/Allergies - Medications Home Medications: Ambulatory Orders Medication Instructions Recorded Confirmed Calcium Carb/Vit D3/Minerals 2 each PO DAILY 06/13/13 04/20/18 [Calcium 1,200 mg Tablet Chew] Carvedilol 6.25 mg PO DAILY 06/13/13 04/20/18 Insulin Glargine,Hum.rec.anlog 50 unit SQ ACHS 05/13/14 04/20/18 [Lantus] Prochlorperazine [Compazine] 5 mg PO Q6H PRN 05/13/14 04/20/18 Insulin Aspart [Novolog] 25 units SQ AC 02/17/15 04/20/18 Ondansetron HCl [Zofran] 4 - 8 mg PO Q6H PRN 10/01/15 04/20/18 Capecitabine 2,000 mg PO .BID 1 WEEK ON/OFF 07/02/17 04/20/18 Meloxicam 7.5 mg PO DAILY 10/10/17 04/20/18 Pregabalin [Lyrica] 50 mg PO DAILY 10/10/17 04/20/18 Albuterol Sulfate [Proair 2 puffs INH Q4H PRN 12/03/17 04/20/18 Respiclick] Fluticasone/Vilanterol [Breo 1 puffs INH DAILY PRN MDD 12/03/17 04/20/18 Ellipta 200-25 Mcg INH] exacerbation amLODIPine [Norvasc] 5 mg PO DAILY #30 tablet 12/06/17 04/20/18 Ipratropium/Albuterol [Duoneb] 1 amp INH Q4HR PRN 12/21/17 04/20/18 Methocarbamol 1 tab PO TID PRN 02/13/18 04/20/18 Omeprazole 40 mg PO DAILY 04/20/18 04/20/18 Sulfamethox/Trimeth 800/160 1 tab PO BID MDD 7 days 04/20/18 04/20/18 [Bactrim Ds] - Allergies Allergies/Adverse Reactions: Allergies Allergy/AdvReac Type Severity Reaction Status Date / Time erythromycin base AdvReac Severe Itching Verified 12/02/17 16:36 [Erythromycin Base] ketamine AdvReac Severe Hallucinati Verified 12/02/17 16:36 ons Latex, Natural Rubber AdvReac Mild Itching Verified 12/02/17 16:36 codeine [Codeine] AdvReac Anxiety Verified 12/02/17 16:36 Review of Systems - Constitutional Constitutional: reports: Fatigue - Eyes Eyes: reports: Vision loss, Corrective lenses - Ears, Nose & Throat Ears, Nose & Throat: reports: Dry mouth - Cardiovascular Cardiovascular: reports: Exertional dyspnea, Decr. exercise tolerance, Other ( has known severe aortic stenosis; saw Dr. Fisher yesterday for ECHO no medication changes made). denies: Chest pain - Respiratory Respiratory: reports: Cough (in am), SOB with exertion. denies: Sputum production, Wheezing - Gastrointestinal Gastrointestinal: reports: Diarrhea (soft loose stool when taking chemotherapy) , Reflux/heartburn, Early satiety - Genitourinary Genitourinary: reports: Dysuria, Frequency, Urgency (had abated some; now worsening with q1 voiding small amounts), Incontinence - Musculoskeletal Musculoskeletal: reports: Muscle aches, Stiffness, Muscle weakness, Assistive devices (uses walker for short distances; wheelchair for when out/longer distances) - Integumentary Integumentary: reports: Dryness, Other (reports coccyx decub worsened and more painful; feels worsened with car ride on recent trip) - Neurological Neurological: reports: General weakness, Numbness (right hand/sharp shooting pains and numbness in elbow/shoulder), Memory problems ("chemo brain" some STM issues noted) - Psychiatric Psychiatric: reports: Depression (mild) - Endocrine Endocrine: reports: Diabetes type 2 - Hematologic/Lymphatic Hematologic/Lymphatic: reports: Recurrent infections (UTIs) - All Other Systems All Other Systems: reports: Reviewed and negative Physical Exam - Vital Signs Temperature: 97.2 C Pulse Rate: 94 Respiratory Rate: 18 O2 Saturation: 95 (ra @ rest) Blood Pressure: 132/78 - Physical Exam General Appearance: positive: No acute distress, Alert Eyes Bilateral: positive: Normal inspection ENT: negative: Oral lesions Neck: positive: Trachea midline Cardiovascular: positive: Regular rate & rhythm, Diastolic murmur Respiratory: positive: Diminished in bases, Other (quite sedentary, reports doing insp. does need to work to keep numbers up). negative: Wheezes Abdomen: positive: Non-tender, Soft, Nml bowel sounds Skin: positive: Pressure wound (thickened plaques; some redness suspicious for candidiasis; pressure betweeen cheeks; still sleeping in recliners) Extremities: positive: Pedal edema (trace to 1+; reports improved had worsened with traveling) Neurologic/Psychiatric: positive: Oriented x3, Mood/affect nml Palliative Care - POLST Patient has POLST: No Pain: Pain improved Tiredness/Fatigue: Moderate (4-6) Drowsiness/Sedation: Mild (1-3) Nausea: None Depression: Mild (1-3) Anxiety: Mild (1-3) Dyspnea: Moderate (4-6) Anorexia: Moderate (4-6) Sleep: Variable sleep pattern Constipation: No Feelings of wellbeing/Perceived Quality of Life: Fair, Acceptable, No change Performance Status: Patient does require assistance with her ADLs, and with toileting. Her does provide some hands-on care, patient is able to self-feed and oversees her medications.She has been more sedentary the last couple days, she was quite fatigued from her company. That she reports she was quite active while they were here. - Palliative Care Discussion: Patient continues to reflect on her current quality of life, she does still find it acceptable, though does have many limitations. She was quite frustrated to hear that she will most likely never walk again independently, with the decline of the surgeon to do surgery. She also recently saw the life specialist, she does have severe aortic stenosis, and is not a candidate for any kind of surgery as well. She does recognize that she has been an extended survivor of her breast cancer, remains hopeful that there will be things for her in the future, but if she were to have more severe pain and increased suffering she would not want to prolong that. She continues to be very tentative about talking about goals of care, currently she would accept hospitalization for most conditions Impression and Recommendations - Palliative Care Impression: This is a 72-year-old woman with metastatic cancer to the bones, with improvement of her pain management as result of radiation. She does feel her current quality of life has improved, she does present though with symptoms of a UTI, she does have a history of recurrent UTIs. She also presents with an exacerbation of GERD. Palliative care continue to provide support for pain and symptom management, anticipatory guidance, and counseling regarding adjustment illness. Recommendations/Counseling Done: 1. Pain of neoplastic origin. Patient did receive good relief from her radiation therapy, has decreased on her pain medications. We have been wanting to trial the methadone to see how she does as far as tolerance, patient has severe nausea and vomiting with most opioids. Will obtain her most recent echo as it will have the EKG in conjunction with that. She is getting good relief with the CBD oil for breakthrough pain, and has decreased her meloxicam back to 7.5 mg in the a.m. and Lyrica at at bedtime. She does know she can titrate this up as needed she has not needed any methyl carbinol. 2. Dysuria. Patient recently had a positive urine though did not get cultured secondary squamous cells. Patient does reports very difficult to get a clean catch urine specimen given her body habitus and the difficulty in obtaining a specimen despite the hot. Given her increase in symptoms will go ahead and initiate Bactrim DS 1 tab twice daily, she has been left a urine cup if she does not have an improvement in symptoms after she has finished, we will follow- up with a further culture. 3. GERD. Patient did put her omeprazole [address] in her daily metastatic, did discuss the need to take this consistently given her severity of symptoms. 4. Decub on left buttock. Counseling regarding wound care, did instruct to add Clarisa antifungal cream, it does have an appearance of some candidiasis, patient has had increased incontinence with her dysuria. Patient is also instructed on pressure relief cushions in her recliner, and frequent position changes. She is instructed to use washcloth was showering to exfoliate the buildup of skin. She will contact me if she has increased breakdown or bleeding , it is not located good place for dressing, but can further evaluate what might be of affect. 5. Depression. She is finding much support with her meetings with the palliative care trainmaster, continues to try and process her grief and loss with her visits, psychosocial support provided. We will plan to see her again in 1 month unless other symptoms are problems arise Time Spent: 60 minutes with greater than 50% of this done in counseling regarding pain and symptom management, counseling regarding grief and loss, and anticipatory guidance
== END 2018-04-20 12:31 | disposition home or self-care (01) ==
LOC: PC 12:30
PROVIDERS: ATTEND Nurse Practitioner Adult Health
DX: Z51.5 Encounter for palliative care (principal); G89.3 Neoplasm related pain (acute) (chronic); C79.51 Secondary malignant neoplasm of bone; C50.919 Malignant neoplasm of unspecified site of unspecified female breast; R30.0 Dysuria; K21.9 Gastro-esophageal reflux disease without esophagitis; F32.9 Major depressive disorder, single episode, unspecified; L89.302 Pressure ulcer of unspecified buttock, stage 2; E11.9 Type 2 diabetes mellitus without complications; Z87.440 Personal history of urinary (tract) infections; Z79.4 Long term (current) use of insulin
CPT/HCPCS: 99350

== ENCOUNTER 2018-05-25 12:30 | Outpatient (CLI) | payer MEDICARE, OTHER ==
--- NOTE | 2018-05-25 21:21 | CONSULTATION NOTE ---
Palliative Care Follow Up - Referral Referring Provider: Dr. Leonard Bonilla Time of Visit: [id number] Referral setting: Home (It is taxing considerable effort for the patient to leave her home secondary to severe pain) Referral Reason: Pain of neoplastic origin/Met Breast CA - Information Sources Records reviewed: Previous records reviewed History/Review of Systems obtained from: Patient Exam limitations: No limitations - History of Present Illness Update Brief HPI Update: This is a 72-year-old woman with metastatic breast cancer to the bones, has had multiple hormonal and chemotherapeutic agents. Her CA 15 though is creeping up , she had been receiving maintenance Xeloda 1 week on and one-week off. She has received radiation for her bony pain, with good results. Currently she still has residual pain in her left hip, her right shoulder pain has been improving with sleeping in her bed. She is currently managed with Lyrica 50 mg at bedtime, meloxicam 7.5 mg in the a.m., and CBD oil in midday. She does have the methadone filled if we need to trial this in her gun safe. She was recently treated for UTI with resolution, she is currently on her Xeloda, has intermittent loose stools with this, her pressure wound on her buttocks continues but is improving. She is feeling she is doing much better, both emotionally and physically, and is discussing about restarting physical therapy to be able to meet some of her goals of being more ambulatory. Social History - Living Situation Living arrangement: At home Living Situation: With spouse/s.o. Support System: Patient's provides the IADLs; assists with ADLs & transportation; feels supported by family; recent family reunion over the Medications/Allergies - Medications Home Medications: Ambulatory Orders Medication Instructions Recorded Confirmed Calcium Carb/Vit D3/Minerals 2 each PO DAILY 06/13/13 05/25/18 [Calcium 1,200 mg Tablet Chew] Carvedilol 6.25 mg PO DAILY 06/13/13 05/25/18 Insulin Glargine,Hum.rec.anlog 50 unit SQ ACHS 05/13/14 05/25/18 [Lantus] Prochlorperazine [Compazine] 5 mg PO Q6H PRN 05/13/14 05/25/18 Insulin Aspart [Novolog] 25 units SQ AC 02/17/15 05/25/18 Ondansetron HCl [Zofran] 4 - 8 mg PO Q6H PRN 10/01/15 05/25/18 Capecitabine 2,000 mg PO .BID 1 WEEK ON/OFF 07/02/17 05/25/18 Meloxicam 7.5 mg PO DAILY 10/10/17 05/25/18 Pregabalin [Lyrica] 50 mg PO QPM 10/10/17 05/25/18 Albuterol Sulfate [Proair 2 puffs INH Q4H PRN 12/03/17 05/25/18 Respiclick] Fluticasone/Vilanterol [Breo 1 puffs INH DAILY PRN MDD 12/03/17 05/25/18 Ellipta 200-25 Mcg INH] exacerbation amLODIPine [Norvasc] 5 mg PO DAILY #30 tablet 12/06/17 05/25/18 Ipratropium/Albuterol [Duoneb] 1 amp INH Q4HR PRN 12/21/17 05/25/18 Methocarbamol 1 tab PO TID PRN 02/13/18 05/25/18 Omeprazole 40 mg PO DAILY 04/20/18 05/25/18 - Allergies Allergies/Adverse Reactions: Allergies Allergy/AdvReac Type Severity Reaction Status Date / Time erythromycin base AdvReac Severe Itching Verified 12/02/17 16:36 [Erythromycin Base] ketamine AdvReac Severe Hallucinati Verified 12/02/17 16:36 ons Latex, Natural Rubber AdvReac Mild Itching Verified 12/02/17 16:36 codeine [Codeine] AdvReac Anxiety Verified 12/02/17 16:36 Review of Systems - Constitutional Constitutional: reports: Fatigue (better on weeks off xeloda), Weight stable. denies: Chills - Eyes Eyes: reports: Vision loss, Corrective lenses - Ears, Nose & Throat Ears, Nose & Throat: reports: Hearing loss (mild), Mouth lesions (tenderness only), Dry mouth - Cardiovascular Cardiovascular: reports: Decr. exercise tolerance. denies: Chest pain - Respiratory Respiratory: reports: SOB with exertion. denies: SOB at rest - Gastrointestinal Gastrointestinal: reports: Nausea (intermittent only), Good appetite. denies: Diarrhea (loose stools with xeloda 4-5 x a day; manageable) - Genitourinary Genitourinary: reports: Frequency, Urgency. denies: Dysuria (feels UTI has cleared) - Musculoskeletal Musculoskeletal: reports: Limited range of motion (right arm/leg), Muscle weakness (feels ready to return to PT), Assistive devices (difficulty with right arm neuropathy to use walker; wanting to pursue adaptive walker) - Integumentary Integumentary: reports: Dryness, Other (buttocks lesion) - Neurological Neurological: reports: General weakness, Headache (occasional), Memory problems (STM fluctuates; not problematic), Abnormal gait - Psychiatric Psychiatric: reports: Depression (improved) - Endocrine Endocrine: reports: Diabetes type 2 (feels controlled; rarely checks BS) - Hematologic/Lymphatic Hematologic/Lymphatic: reports: Anemia, Recurrent infections (UTIS) - All Other Systems All Other Systems: reports: Reviewed and negative Physical Exam - Vital Signs Temperature: 97.0 C Pulse Rate: 64 Respiratory Rate: 16 O2 Saturation: 91 (at rest in recliner; improves when up to 96%) Blood Pressure: 132/64 - Physical Exam General Appearance: positive: No acute distress, Alert Eyes Bilateral: positive: Normal inspection ENT: positive: Dry mucous membranes Neck: positive: Trachea midline, Other Cardiovascular: positive: Regular rate & rhythm Respiratory: positive: Diminished in bases. negative: Wheezes Abdomen: positive: Non-tender, Soft, Nml bowel sounds, Obese Skin: positive: Pressure wound (left side healed; right with hypergranulation; doing better with pressure relief) Extremities: positive: Pedal edema (trace bilat) Neurologic/Psychiatric: positive: Oriented x3, Mood/affect nml, Weakness Palliative Care - POLST Patient has POLST: No Pain: Pain improved, Location (right shoulder sharp shooting improved as with numbness with sleeping in bed; pain right hip cont. at baseline) Tiredness/Fatigue: Moderate (4-6) Drowsiness/Sedation: None Nausea: Mild (1-3) Depression: Mild (1-3) Anxiety: Moderate (4-6) Dyspnea: Mild (1-3) Anorexia: Mild (1-3) Sleep: Sleep improved (can spend up to 3-4 hours in bed; ;improves sleep) Constipation: No Feelings of wellbeing/Perceived Quality of Life: Fair, Acceptable, Improved Performance Status: Patient is slow but steady and can walk a few steps with walker, and she does spend most of her time in a recliner. Her does help her with ADLs, she is able to self-feed but does need assistance with dressing. I would put her PPS at 40% - Palliative Care Discussion: Patient feeling like she is at a better space than previously, she had been quite discouraged with the news that she was not going to be a candidate for surgery on her hip, her that she was going to walk again. Is aware her CA 15 is not improving, is wondering what the next step might be. She is also aware she most likely will not tolerate any aggressive chemotherapy and Is concerned about the future and future decline. She does feel though her current quality of life is acceptable, her pain is currently controlled, she does find ways to make meaning in her current situation. She does have a few things left on her bucket list, we did discuss in the context of where she is right now about moving forward with those goals. She had a really nice visit with her extended family does reflect that it is not so much she is afraid of dying, but afraid of leaving her family behind. Impression and Recommendations - Palliative Care Impression: This is a 72-year-old woman with metastatic breast cancer to the bones, is doing fairly well with her current pain regimen, and is ready to try physical therapy again. Discussed in the context of her current situation, palliative care will revisit in 2-3 months unless other acute pain or symptom management issues arise. She will be continued to be followed and supportive though by the palliative care red cap. Recommendations/Counseling Done: 1. Pain of neoplastic origin. Patient's current regimen is working, she can titrate up meloxicam or increase her CBD, or increase her Lyrica if she does have an exacerbation with increased activity. She is hoping to travel some this summer, encouraged given her current level of functioning which is the best it has been for a while, to move forward on those plans. 2. Depression. Patient is currently doing quite well, continues to express normal feelings of grief and loss, but finding support through the palliative care red cap. 3. UTI. Patient does have recurrent UTIs, currently has been treated, did encourage the next time we should obtain a urine specimen if she has recurrence. She does demonstrate symptoms through increased frequency, does not experience dysuria, does present with symptoms of retention. She has been encouraged to keep her fluid uptake at current level. 4. Generalized weakness. Patient would like to return to physical therapy for strengthening, also willing at this point in time to get an adaptive walker, did ask them to assist her with identifying appropriate equipment. On prescription sent to her out of physical therapy, with follow-up regarding questions regarding the walker. 5. Decub on buttocks. Left buttocks is resolving, does still have some residual on her right. She is doing pressure relief measures, she is to continue with her barrier cream. Did discuss in the context of if this does not improve can make a referral to the [facility] clinic for wound care though does seem to be chronic in nature and not progressing. 6. Advanced care planning. Patient remains reticent to put any of her wishes in writing, she does not want heroic measures, but does not at this point in time want to commit to DNA R. She does recognize the seriousness of her illness , is able to express her concerns and fears, she does not want to be further dependent or in excruciating pain. She does find great support and solace through her barron, by default to [place] law her is her DPOAE and this is acceptable to her. Palliative care to continue to follow for support for pain and symptom management. Time Spent: 60 minutes with greater than 50% of this done in counseling regarding pain and symptom management, depression, anxiety, reviewing goals of care and anticipatory guidance
== END 2018-05-25 12:31 | disposition home or self-care (01) ==
LOC: PC 12:30
PROVIDERS: ATTEND Nurse Practitioner Adult Health
DX: Z51.5 Encounter for palliative care (principal); C50.919 Malignant neoplasm of unspecified site of unspecified female breast; C79.51 Secondary malignant neoplasm of bone; G89.3 Neoplasm related pain (acute) (chronic); R11.0 Nausea; L89.329 Pressure ulcer of left buttock, unspecified stage; F32.9 Major depressive disorder, single episode, unspecified; R53.1 Weakness; E11.9 Type 2 diabetes mellitus without complications; H54.7 Unspecified visual loss; H91.90 Unspecified hearing loss, unspecified ear; Z79.4 Long term (current) use of insulin; Z79.899 Other long term (current) drug therapy; Z92.3 Personal history of irradiation; Z87.440 Personal history of urinary (tract) infections
CPT/HCPCS: 99350

== ENCOUNTER 2018-07-18 10:30 | Outpatient (CLI) | payer MEDICARE, OTHER ==
[2018-07-18 11:41] LABS: HB2 TOTAL 14.9 g/dL; HEMOGLOBIN A1C 1.03 g/dL; HEMOGLOBIN A1C % 8.5 % (4.6-6.2)
== END 2018-07-18 10:31 | disposition home or self-care (01) ==
LOC: LAB 10:30
PROVIDERS: ATTEND Family Medicine
DX: E11.65 Type 2 diabetes mellitus with hyperglycemia (principal)
CPT/HCPCS: 83036

== ENCOUNTER 2018-08-25 14:45 | Outpatient (CLI) | payer MEDICARE, OTHER ==
[2018-08-25 16:43] LABS: BILIRUBIN,URINE NEGATIVE (NEGATIVE); GLUCOSE, URINE (UA) NEGATIVE (NEGATIVE); KETONES,URINE (UA) NEGATIVE (NEGATIVE); LEUKOCYTE ESTERASE, URINE MODERATE (NEGATIVE); NITRITE,URINE POSITIVE (NEGATIVE); OCCULT BLOOD,URINE NEGATIVE (NEGATIVE); PROTEIN,URINE NEGATIVE (NEGATIVE); UROBILINOGEN,URINE 0.2 (NORMAL) E.U./dL (NORMAL)
[2018-08-25 16:47] LABS: CLARITY,URINE HAZY (CLEAR)
[2018-08-25 16:51] LABS: BACTERIA,URINE Many /HPF (None Seen); SQUAMOUS EPITHELIAL CELL,UR RARE Squamous (<= Few); WBC CLUMPS,URINE PRESENT
== END 2018-08-25 14:46 | disposition home or self-care (01) ==
LOC: LAB.R 14:45
PROVIDERS: ATTEND Nurse Practitioner Adult Health
DX: R30.0 Dysuria (principal)
CPT/HCPCS: 81001; 81003; 87077; 87086; 87181

== ENCOUNTER 2018-08-25 17:52 | Outpatient (CLI) | payer MEDICARE, OTHER ==
--- NOTE | 2018-08-25 17:56 | CONSULTATION NOTE ---
Palliative Care Follow Up - Referral Referring Provider: Dr. Patricia Hatfield Time of Visit: [id number] Referral setting: Home Referral Reason: Metastatic Breast Cancer/UTI - Information Sources Records reviewed: Previous records reviewed History/Review of Systems obtained from: Patient, Family ( present for visit) Exam limitations: No limitations - History of Present Illness Update Brief HPI Update: This is a 72-year-old woman with metastatic breast cancer to the bones, since 09/2010, Her original breast cancer diagnosis was stage III in 2004 with lumpectomy, radiation, adjuvant AC followed by Taxol and partial endocrine therapy. She has had multiple hormonal and chemotherapeutic agents since this time, she continues to receive maintenance Xeloda 1 week on and one-week off . Her last round was interrupted secondary to her 's hospitalization, she did not feel like she could continue through this because of the diarrhea and nausea and stress. She did resume after several days, and will be restarting 4 days in between, but has been on 2 weeks and prior, then will be back on schedule. She received radiation earlier this year to the sacrum, lumbar spine, and right hip with improvement. She has been participating in physical therapy, with the goal to continue to be able to ambulate with her walker, she is quite deconditioned, complicated by her morbid obesity, as well as severe degeneration in her left hip. Currently she is managing her pain with Lyrica 50 mg at bedtime, meloxicam 7.5 mg in the a.m., and CBD oil 1-2 times a day. She also uses methocarbamol 1-2 times a month, if she has increased spasms or uncontrolled pain. We had agreed to take off the summer, she was expecting multiple visitors, and starting PT. And she called with increased symptoms of UTI today, this is actually been going on for about a week, her symptoms are frequency, she has not been sleeping as she has been up every hour particularly at nigh, as well as smell. She reports her pain is been escalated over the last several weeks, this can be attributed to her increase stress as result of her having a heart attack about a week ago, and in hospital in [place] getting stents. There is also been the of a great grandchild, as well as multiple stressors regarding her sisters. Social History - Living Situation Living arrangement: At home Living Situation: With spouse/s.o. Support System: Patient's has been her main caregiver, provide support with all ADLs and transportation, this really threw her for a "loop" as she is dependent on him. Medications/Allergies - Medications Home Medications: Ambulatory Orders Medication Instructions Recorded Confirmed Calcium Carb/Vit D3/Minerals 2 each PO DAILY 06/13/13 08/26/18 [Calcium 1,200 mg Tablet Chew] Carvedilol 6.25 mg PO DAILY 06/13/13 08/26/18 Insulin Glargine,Hum.rec.anlog 50 unit SQ ACHS 05/13/14 08/26/18 [Lantus] Prochlorperazine [Compazine] 5 mg PO Q6H PRN 05/13/14 08/26/18 Insulin Aspart [Novolog] 25 units SQ AC 02/17/15 08/26/18 Ondansetron HCl [Zofran] 4 - 8 mg PO Q6H PRN 10/01/15 08/26/18 Capecitabine 2,000 mg PO .BID 1 WEEK ON/OFF 07/02/17 08/26/18 Meloxicam 7.5 mg PO DAILY 10/10/17 08/26/18 Pregabalin [Lyrica] 50 mg PO QPM 10/10/17 08/26/18 Albuterol Sulfate [Proair 2 puffs INH Q4H PRN 12/03/17 07/18/18 Respiclick] Fluticasone/Vilanterol [Breo 1 puffs INH DAILY PRN MDD 12/03/17 08/26/18 Ellipta 200-25 Mcg INH] exacerbation amLODIPine [Norvasc] 5 mg PO DAILY #30 tablet 12/06/17 08/26/18 Ipratropium/Albuterol [Duoneb] 1 amp INH Q4HR PRN 12/21/17 08/26/18 Methocarbamol 1 tab PO TID PRN 02/13/18 08/26/18 Omeprazole 40 mg PO DAILY 04/20/18 08/26/18 - Allergies Allergies/Adverse Reactions: Allergies Allergy/AdvReac Type Severity Reaction Status Date / Time erythromycin base AdvReac Severe Itching Verified 12/02/17 16:36 [Erythromycin Base] ketamine AdvReac Severe Hallucinati Verified 12/02/17 16:36 ons Latex, Natural Rubber AdvReac Mild Itching Verified 12/02/17 16:36 codeine [Codeine] AdvReac Anxiety Verified 12/02/17 16:36 Review of Systems - Constitutional Constitutional: reports: Fatigue, Weight stable. denies: Fever, Chills - Eyes Eyes: reports: Vision loss - Ears, Nose & Throat Ears, Nose & Throat: reports: Other (poor dentition) - Cardiovascular Cardiovascular: reports: Exertional dyspnea (somewhat worsening), Decr. 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 denies: Palpitations, Chest pain - Respiratory Respiratory: reports: Orthopnea, SOB at rest, SOB with exertion. denies: Wheezing - Gastrointestinal Gastrointestinal: reports: Diarrhea (intermittent when on xeloda; manageable), Nausea (intermittent when on xeloda), Reflux/heartburn (controlled with omeprazole), Good appetite - Musculoskeletal Musculoskeletal: reports: Muscle aches, Stiffness, Muscle weakness, Assistive devices (working with PT for mobility), Other (able to tolerated sleeping in bed now) - Integumentary Integumentary: reports: Dryness, Other (continue with skin changes buttocks; attributed to pressure in recliner; got new gel cushion feels more comfortable; hopeful will improve healing now appears fairly chronic) - Neurological Neurological: reports: General weakness - Psychiatric Psychiatric: reports: Anxiety - Endocrine Endocrine: reports: Diabetes type 2 (has not followed up with Dr. Hatfield regarding BS) - Hematologic/Lymphatic Hematologic/Lymphatic: reports: Recurrent infections (UTIs). denies: Anemia - All Other Systems All Other Systems: reports: Reviewed and negative Physical Exam - Vital Signs Temperature: 96.5 C Pulse Rate: 75 Respiratory Rate: 18 O2 Saturation: 91 (ra @ rest) Blood Pressure: 112/62 - Physical Exam General Appearance: positive: Anxious Eyes Bilateral: positive: Normal inspection ENT: positive: Other (poor dentition). negative: Pharyngeal erythema, Oral lesions Neck: positive: Trachea midline Cardiovascular: positive: Regular rate & rhythm Respiratory: positive: Diminished in bases. negative: Wheezes Abdomen: positive: Non-tender, Soft, Nml bowel sounds, Obese Skin: positive: Pressure wound (roughened raised areas bilateral where buttocks touch; one open lesion on left; using barrier cream as instructed) Extremities: positive: Pedal edema (trace bilat) Neurologic/Psychiatric: positive: Oriented x3, Mood/affect nml Palliative Care - POLST Patient has POLST: No Pain: Pain unchanged, Location (right shoulder; left hip; band across back) Tiredness/Fatigue: Severe (7-10) (feels related to increase in activity/infection/stress) Drowsiness/Sedation: None Nausea: Mild (1-3) Depression: Mild (1-3) Anxiety: Moderate (4-6) Dyspnea: Moderate (4-6) (noted with activity; denies wheezing or exacerbation of asthma) Anorexia: None Sleep: Variable sleep pattern Constipation: No Feelings of wellbeing/Perceived Quality of Life: Good, Acceptable, No change Performance Status: Patient still requires assistance with ADLs, was able to get from sit to stand, but difficulty with dressing, bathing, needs someone to do meal prep. Has been provides all IADLs, is working with physical therapy to continue hopefully to maintain her mobility. She is ambulatory with a front wheeled walker, but is difficulty standing straight or supporting self for longer distances. - Palliative Care Discussion: Patient expressing distress and realization regarding fragile caregiving status. recently acutely ill, does provide ongoing caregiving support and a ssistance with her ADLs. She was quite relieved when her [id number] reassured her that he would, take care of them if their care needs increased, he is retired, this was a great relief for her as far as her stressors. She does provide much emotional support to her sisters who are both going through difficult times, she is getting support from the palliative care physical therapy teacher. She has felt overwhelmed this last couple weeks, suspects this is somewhat why her immune status was compromised, and she is presenting with new UTI Results - Lab Results Lab results reviewed: Yes Lab and Imaging Results: UA positive; awaiting results of C & S Impression and Recommendations - Palliative Care Impression: This is a 72-year-old woman with metastatic breast cancer to the bones, is doing fairly well with her current pain regimen, and has initiated physical therapy again with improvement of overall ability to ambulate. She does present with acute signs and symptoms of UTI, as well as feeling somewhat overwhelmed with her recent family stressors. Her pain is currently controlled on her current regimen, will continue to follow and support as well as the palliative care physical therapy teacher to the palliative care team Recommendations/Counseling Done: 1. UTI. Patient quite symptomatic, has been prolonged symptoms for about a week. These are worsening, though she does not present with systemic symptoms she is usually a fairly good discharge as far as when she is a threshold for need for treatment. Will go ahead and order Bactrim DS 1 tab twice daily for 10 days as this is been effective for her in the past. Specimen was obtained for C&S, though this difficult to get good speciman due to her habitus. 2. Pain of neoplastic origin. Patient feels satisfied with current regimen, she does have room to titrate up on her meloxicam, increase her CBD, or increase her Lyrica if she has an exacerbation. She has had a good summer as far as managing her pain and visiting with family, is overwhelmed with current str essors over the last couple weeks and feels this increase activity has exacerbated her baseline pain. 3. Depression. Patient currently doing quite well, continues to express normal feelings of grief and loss, is finding support through the palliative care physical therapy teacher. 4. Generalized weakness. Patient is participating in physical therapy, though she finds this quite taxing it has been helpful. She is unable to afford an adaptive walker, but is still ambulatory within the home. 5. Buttocks decub, no unstageable. This continue with barrier cream, appears chronic in nature secondary to her needing to sit long-term in a recliner, she is using the bed at night though. Does not seem to be progressing or causing any increased difficulty. She has received a new gel cushion, is hoping this will help in the recliner. Time Spent: 30 minutes was given 50% of this done in review of her pain regimen, current status, collected UTI and prescriptions ordered.
== END 2018-08-25 17:53 | disposition home or self-care (01) ==
LOC: PC 17:52
PROVIDERS: ATTEND Nurse Practitioner Adult Health
DX: Z51.5 Encounter for palliative care (principal); N39.0 Urinary tract infection, site not specified; F32.9 Major depressive disorder, single episode, unspecified; R53.1 Weakness; C50.919 Malignant neoplasm of unspecified site of unspecified female breast; C79.51 Secondary malignant neoplasm of bone; G89.3 Neoplasm related pain (acute) (chronic); E66.01 Morbid (severe) obesity due to excess calories; M16.12 Unilateral primary osteoarthritis, left hip; M25.511 Pain in right shoulder; M25.552 Pain in left hip; M54.9 Dorsalgia, unspecified; E11.9 Type 2 diabetes mellitus without complications; K52.1 Toxic gastroenteritis and colitis; R11.0 Nausea; T45.1X5D Adverse effect of antineoplastic and immunosuppressive drugs, subsequent encounter; Z79.4 Long term (current) use of insulin; Z79.51 Long term (current) use of inhaled steroids; Z79.899 Other long term (current) drug therapy; Z87.440 Personal history of urinary (tract) infections
CPT/HCPCS: 99348

== ENCOUNTER 2018-09-19 11:56 | Outpatient (CLI) | payer MEDICARE, OTHER | END 2018-09-19 11:57 | disposition home or self-care (01) | LOC: LAB.WCP 11:56 | PROVIDERS: ATTEND Family Medicine | DX: N39.0 Urinary tract infection, site not specified (principal) | CPT/HCPCS: 87077; 87086; 87181 ==

== ENCOUNTER 2018-11-01 12:00 | Outpatient (CLI) | payer MEDICARE, OTHER ==
--- NOTE | 2018-11-02 11:42 | Nuclear Medicine Report ---
Reason: L BREAST CANCER, STAGE 4 Procedure Date: 11/01/2018 Accession Number: [id number] / [id number] Procedure: NM - Bone Whole Body CPT Code: FULL RESULT: EXAM: BONE SCAN EXAM DATE: 11/01/2018 04:31 PM. CLINICAL HISTORY: L BREAST CANCER, STAGE 4. COMPARISON: BONE SCAN 02/17/2018 12:14 PM. TECHNIQUE: Following the intravenous administration of 31.5 mCi of technetium 99m MDP and an appropriate delay, a whole-body scan was performed in anterior and posterior projections. FINDINGS: Exam Quality: Normal overall osseous radiotracer uptake. Physiological tracer uptake in bilateral collecting systems. Skull: No focal uptake. Thorax: Stable lesions in the left posterior ninth, left medial posterior fifth, and right medial posterior 10th ribs. Increased intensity of uptake in the right medial posterior sixth rib. There are new small lesions in the right lateral eighth and left lateral sixth ribs. Stable focus of intensely increased uptake in left clavicular head. Pelvis: There is heterogeneously increased uptake in the sacrum which appears more intense compared to prior. There is intensely increased uptake in left hip joint, similar to prior. Spine: Increased intensity of uptake in L4 and T11. Extremities: Stable increased uptake in both shoulders, both knees, both mid feet, and left great toe MTP joint. IMPRESSION: Multifocal skeletal metastatic disease with evidence of progression in sacrum, spine, ribs compared to prior. RADIA
--- NOTE | 2018-11-02 14:46 | XRAY Report ---
Reason: LOWER BACK PAIN, BREAST METS Procedure Date: 11/01/2018 Accession Number: [id number] / [id number] Procedure: XR - Pelvis 1 View CPT Code: FULL RESULT: EXAM: PELVIS RADIOGRAPHY EXAM DATE: 11/01/2018 04:30 PM. CLINICAL HISTORY: Lower back pain and pelvic pain, breast mets. COMPARISON: HIP 2 VIEW LT 02/13/2018 11:03 AM BONE SCAN 11/01/2018 12:20 PM HIP W/PELVIS 2-3V RT 07/25/2017 2:06 PM MRI PELVIS W/O CONT 03/25/2012 9:01 AM. TECHNIQUE: 1 view. FINDINGS: Bones: There is a 5 cm cystic lucency of the right iliac wing unchanged compared to studies of 07/25/2017. The L4 and L5 vertebral bodies appear hyperdense. There is severe asymmetric osteoarthritis of the left hip with complete loss of the joint space with [id number] articulation and subchondral sclerosis on both sides of the joint space. Appearance is little changed compared to studies of 07/25/2017. No appreciable acute fracture. Joints: As above. Soft Tissues: Normal. No soft tissue swelling. IMPRESSION: 1. Stable 5 cm cystic lucency of the right iliac bone. Stable hyperdensity to L4 vertebral body and possibly L5. Findings favor osseous metastases. 2. Stable severe asymmetric degenerative osteoarthritis left hip. RADIA
== END 2018-11-01 12:01 | disposition home or self-care (01) ==
LOC: DI 12:00
PROVIDERS: ATTEND Internal Medicine Hematology & Oncology
DX: C50.912 Malignant neoplasm of unspecified site of left female breast (principal); C79.51 Secondary malignant neoplasm of bone; M16.12 Unilateral primary osteoarthritis, left hip
CPT/HCPCS: 72170; 78306

== ENCOUNTER 2018-11-28 08:00 | Outpatient (CLI) | payer MEDICARE, OTHER ==
[2018-11-28 18:40] LABS: BILIRUBIN,URINE NEGATIVE (NEGATIVE); GLUCOSE, URINE (UA) >=1000 mg/dL (NEGATIVE); KETONES,URINE (UA) NEGATIVE (NEGATIVE); LEUKOCYTE ESTERASE, URINE NEGATIVE (NEGATIVE); NITRITE,URINE POSITIVE (NEGATIVE); OCCULT BLOOD,URINE NEGATIVE (NEGATIVE); PH,URINE 5.5 PH (5.0-7.5); PROTEIN,URINE NEGATIVE (NEGATIVE); UROBILINOGEN,URINE 0.2 (NORMAL) E.U./dL (NORMAL)
[2018-11-28 18:52] LABS: BACTERIA,URINE Moderate /HPF (None Seen); CLARITY,URINE CLOUDY (CLEAR); SQUAMOUS EPITHELIAL CELL,UR RARE Squamous (<= Few)
== END 2018-11-28 23:59 | disposition home or self-care (01) ==
LOC: LAB.R 08:00
PROVIDERS: ATTEND Nurse Practitioner Adult Health
DX: R30.0 Dysuria (principal)
CPT/HCPCS: 81001; 81003; 87086

== ENCOUNTER 2018-12-07 08:00 | Outpatient (CLI) | payer MEDICARE, OTHER ==
[2018-12-07 20:21] LABS: HB2 TOTAL 14.7 g/dL; HEMOGLOBIN A1C 0.9 g/dL; HEMOGLOBIN A1C % 7.8 % (4.6-6.2)
== END 2018-12-07 23:59 | disposition home or self-care (01) ==
LOC: LAB.WCP 08:00
PROVIDERS: ATTEND Family Medicine
DX: E11.65 Type 2 diabetes mellitus with hyperglycemia (principal)
CPT/HCPCS: 36415; 83036

== ENCOUNTER 2018-12-18 13:30 | Outpatient (CLI) | payer MEDICARE, OTHER ==
--- NOTE | 2018-12-18 19:40 | CONSULTATION NOTE ---
Palliative Care Follow Up - Referral Referring Provider: Dr. Leonard Bonilla Time of Visit: [id number] Referral setting: Home (It is a taxing considerable effort for the patient to leave the home, secondary to her severe pain, and increased lower extremity weakness and numbness) Referral Reason: Pain of neoplastic origin/Met Breast Cancer with bone mets - Information Sources Records reviewed: Previous records reviewed History/Review of Systems obtained from: Patient, Family ( present for visit) Exam limitations: No limitations - History of Present Illness Update Brief HPI Update: This is a 73-year-old woman with metastatic breast cancer to the bone, she has been receiving treat 09/2010. Her original breast cancer diagnosis was stage III in 2004 with lumpectomy, radiation, adjuvant chemotherapy and partial endocrine therapy. She has received multiple hormonal and chemotherapeutic agents since this time, currently she is receiving Xeloda, but is now progressing. She is awaiting port placement, as she is to start gemcitabine. Patient has had escalating pain this is related to her metastatic bone disease, she has not shown any of her evidence of metastatic disease, though she is experiencing the sequela of her bone. Her most recent and severe pain crisis was triggered with her L4 and L5 with significant bone destruction. She received some radiation actually to her erosive lesion in her right iliac wing, as it appears to be associated with a pathologic fracture of this bone. She cannot receive any further treatment to the L4 area. She is waiting also a neurosurgeon referral, though her underlying health issues and habitus may make it difficult to be able to be a candidate for any intervention. Patient has noted increased numbness and tingling in her legs over the last several weeks, these have intensified, she has had new numbness since radiation. She is able to still weight-bear and ambulate a few steps, but is mostly wheelchair bound and spends most of her time in the recliner as this does relieve her pain. Her pain is exacerbated by sitting straight up in a wheelchair, and released by laying back in her recliner. I suspect her pain was exacerbated by her eating to go back and forth to radiation as well as up and off the table. She reports it is some improvement today. She does present as a challenge that she is opioid intolerant, she gets severe nausea and vomiting. Reviewed medication she is used in the past, she has a very poor memory. She has been violently ill on oxycodone, have listed this as an allergy she has been on fentanyl patch, after 2448 hrs. begins with unrelenting nausea and vomiting. We did trial methadone, it is unclear given she was feeling poorly over the last few days if the nausea was related to the medication or a flulike syndrome. As she had spiked a temp around 100. He had been working with her gabapentin, titrating it up currently she is taking Lyrica 50 mg in the a.m., gabapentin 300 mg midday and 300 mg at bedtime. She uses methocarbamol for breakthrough pain, with some relieve as pain does cause spasms as well. She also is taking meloxicam 7.5 mg in the a.m. and Pm. Patient does appear to tolerate this fine, she has not had any increased sedation this time and is willing to titrate this up. She does not know if she has ever tried hydromorphone or hydrocodone, will continue to trial medications as able to have something for rescue. She is somewhat fearful of going into the future particularly with her poor tolerance of pain medications. Social History - Living Situation Living arrangement: At home Living Situation: With spouse/s.o. Support System: [id number] birthday, her sister from [place] and other multiple family members came to celebrate with her. She is feels very celebrated and loved, she really enjoyed the attention. Her [id number] is coming also from a long distance to provide support for her and her . Has been continues to be the primary caregiver, his health is also somewhat questionable, patient is trying to remain as independent as possible but is having increased difficulty with functional decline in her escalating painent just celebrated her Medications/Allergies - Medications Home Medications: Ambulatory Orders Medication Instructions Recorded Confirmed Calcium Carb/Vit D3/Minerals 2 each PO DAILY 06/13/13 12/18/18 [Calcium 1,200 mg Tablet Chew] Carvedilol 6.25 mg PO DAILY 06/13/13 12/18/18 Insulin Glargine,Hum.rec.anlog 50 unit SQ ACHS 05/13/14 12/18/18 [Lantus] Prochlorperazine [Compazine] 5 mg PO Q6H PRN 05/13/14 12/18/18 Insulin Aspart [Novolog] 25 units SQ AC 02/17/15 12/18/18 Ondansetron HCl [Zofran] 4 - 8 mg PO Q6H PRN 10/01/15 12/18/18 Capecitabine 2,000 mg PO .BID 1 WEEK ON/OFF 07/02/17 12/18/18 Meloxicam 7.5 mg PO DAILY 10/10/17 12/18/18 Albuterol Sulfate [Proair 2 puffs INH Q4H PRN 12/03/17 12/18/18 Respiclick] Fluticasone/Vilanterol [Breo 1 puffs INH DAILY PRN MDD 12/03/17 12/18/18 Ellipta 200-25 Mcg INH] exacerbation amLODIPine [Norvasc] 5 mg PO DAILY #30 tablet 12/06/17 12/18/18 Ipratropium/Albuterol [Duoneb] 1 amp INH Q4HR PRN 12/21/17 12/18/18 Methocarbamol 500 mg PO Q6HR PRN 02/13/18 12/18/18 Omeprazole 40 mg PO DAILY 04/20/18 12/18/18 Gabapentin 600 mg PO .1400 & HS MDD titrating 11/03/18 12/18/18 up Methadone 5 mg PO DAILY MDD trialing for 12/18/18 12/18/18 tolerance Pregabalin [Lyrica] 50 - 100 mg PO QDBREAKFAST 12/18/18 12/18/18 - Allergies Allergies/Adverse Reactions: Allergies Allergy/AdvReac Type Severity Reaction Status Date / Time erythromycin base AdvReac Severe Itching Verified 12/02/17 16:36 [Erythromycin Base] ketamine AdvReac Severe Hallucinati Verified 12/02/17 16:36 ons Latex, Natural Rubber AdvReac Mild Itching Verified 12/02/17 16:36 codeine [Codeine] AdvReac Anxiety Verified 12/02/17 16:36 oxycodone AdvReac Nausea Verified 12/18/18 19:44 Review of Systems - Constitutional Constitutional: reports: Fatigue. denies: Fever (resolved after Tuesday) - Eyes Eyes: reports: Vision loss - Ears, Nose & Throat Ears, Nose & Throat: denies: Mouth lesions - Cardiovascular Cardiovascular: reports: Edema (slight in ankles today), Decr. exercise tolerance. denies: Chest pain - Respiratory Respiratory: reports: SOB with exertion. denies: Cough, Wheezing (did not need to use nebulizer), Orthopnea, SOB at rest - Gastrointestinal Gastrointestinal: reports: Constipation (resolved today), Early satiety. denies: Nausea (resolved since Tuesday; did not retrial methadone, was going to try today) - Genitourinary Genitourinary: reports: Frequency - Musculoskeletal Musculoskeletal: reports: Back pain, Muscle aches, Stiffness, Limited range of motion, Muscle weakness, Assistive devices (ambulates with great effort with FWW; spending most of time in recliner) - Integumentary Integumentary: reports: Dryness, Other (reports small open lesion on buttocks) - Neurological Neurological: reports: General weakness, Numbness (worsening in LE from feet up to thigh/back), Memory problems (STM) - Psychiatric Psychiatric: reports: Anxiety - Endocrine Endocrine: reports: Diabetes type 2 (reports good control) - Hematologic/Lymphatic Hematologic/Lymphatic: reports: Recurrent infections (UTIs) - All Other Systems All Other Systems: reports: Reviewed and negative Physical Exam - Vital Signs Temperature: 96.9 C Pulse Rate: 91 Respiratory Rate: 18 O2 Saturation: 96 (ra @ rest) Blood Pressure: 128/75 - Physical Exam General Appearance: positive: Mild distress, Anxious. negative: Lethargic Eyes Bilateral: positive: Normal inspection ENT: positive: No signs of dehydration. negative: Oral lesions Neck: positive: No JVD, Trachea midline Cardiovascular: positive: Regular rate & rhythm, Systolic murmur Respiratory: positive: No respiratory distress, Diminished in bases. negative: Wheezes Abdomen: positive: Non-tender, Soft, Obese Skin: positive: Pallor, Dryness, Pressure wound (patient reports from new pressure area/usually spot; relates to increase time in ercliner) Extremities: positive: Pedal edema (trace pedal edema in ankles) Neurologic/Psychiatric: positive: Oriented x3, Mood/affect nml, Weakness Palliative Care - POLST Patient has POLST: No Pain: Pain worsening Tiredness/Fatigue: Severe (7-10) Drowsiness/Sedation: Moderate (4-6) Nausea: None Depression: Moderate (4-6) Anxiety: Moderate (4-6) Dyspnea: Mild (1-3) Anorexia: Mild (1-3) Sleep: Variable sleep pattern Constipation: Yes, Opoid induced, Managed Feelings of wellbeing/Perceived Quality of Life: Fair, Acceptable, Worsening Performance Status: It is with patient's functional status continues to decline, she is somewhat discouraged that she had made some progress with physical therapy this summer. She is able to ambulate short distances on walker to the bathroom, but mostly is pivot transfer to wheelchair. She pretty much lives on the top floor of her trilevel house, it is quite a challenge to get her out as she does have several steps to leave the home. Her does help her with bathing and dressing. Patient tries to be as independent as she can, this is been very frustrating for her to continue to be more dependent. - Palliative Care Discussion: Patient has always been quite resistant to talking about advanced care planning, she does not want to do a OMID ST. She still perceives her quality of life though limited as acceptable. Her threshold would be uncontrolled pain and unable to enjoy her family. She does worry about the day when she is no longer going to be able to be up and take care of herself. She continues to be quite invested in moving forward with chemotherapy. She does have a long list of multiple comorbidities, and is in poor health overall. Her often thwarts any kind of conversation regarding end-of-life wishes. Results - Lab Results Lab results reviewed: Yes Impression and Recommendations - Palliative Care Impression: This is a 73-year-old woman with metastatic breast cancer to the bones, with progressive bone pain and bone disease. She has recently received radiation to her erosive lesion in her right iliac wing, her most significant pain is in her L4 area. She is awaiting placement for port, to be able to receive gemcitabine. In the meantime she will continue on with her Xeloda. Patient does have escalating pain related to her bone metastases, working with pain regimen to find an acceptable regimen blalnced with side effects. Recommendations/Counseling Done: 1. Pain of neoplastic origin. Patient is tolerating the titration of gabapentin upwards, she wants to use up her Lyrica, current dosing will be Lyrica 50 mg in the a.m., I did encourage to take a second to equal 100 mg. She will take 2 300 mg gabapentin around 1402 gabapentin 300 mg at bedtime. After 3-4 days if no untoward side effects, she will increase the evening dose to 3 300 mg tabs. Given patient's diabetes and kidney function, she will decrease her meloxicam 7.5 mg to just one time in the a.m. She is going to trial the methadone 5 mg today, to see if the nausea is related to this as not to mix it up with her Xeloda which she is to try tomorrow. I also gave her prescription for hydromorphone 2 mg tabs, 10 tabs total to trial for tolerance. This is if she finds a methadone nauseating. She will continue to use the methocarbamol as a rescue for her spasms, and work with positioning to relieve the pressure on her back. We did review concerns regarding cord compression, if patient unable to stand, have sharp shooting pain, or the numbness and tingling escalate much more than the current levels she is to access emergency care. 2. Stage I decub on coccyx. Patient has recurrent issues with this particular when she is in her recliner for prolonged times. She had been able to get back in her bed to sleep, she found this escalated her pain not necessarily in bed, but getting from the bed up out to sitting. They will reinitiate barrier cream, and she will move between the 2 recliners as well as try and do offloading. Her does monitor it for her, and will notify me if this is worsening. 3. Metastatic breast cancer. Patient awaiting Port-A-Cath placement, she is to have this done at [facility] secondary to her multiple comorbidities and concerns for complications. She has had a passport in the past, but was told this is not an option with the gemcitibine. She is anxious to get started, but in the meantime will continue with her Xeloda for disease management. 4.Generalized weakness. Patient is becoming more limited with her pain, her functional status was already quite compromised and now has deteriorated even more. Has been instructed to call for lift assist to get in and out of the house secondary to stairs and not to put herself or her family at risk for falls or increased injury. Patient is trying to stay as active as possible given her limitations. Time Spent: 45 minutes was given 50% of this done regarding counseling regarding regarding acute on chronic pain secondary to her bone metastases, titration of pain medications, as well as anticipatory guidance. Palliative care to continue to provide support for pain and symptom management
== END 2018-12-18 13:31 | disposition home or self-care (01) ==
LOC: PC 13:30
PROVIDERS: ATTEND Nurse Practitioner Adult Health
DX: Z51.5 Encounter for palliative care (principal); G89.3 Neoplasm related pain (acute) (chronic); L89.151 Pressure ulcer of sacral region, stage 1; C50.919 Malignant neoplasm of unspecified site of unspecified female breast; C79.51 Secondary malignant neoplasm of bone; R53.1 Weakness; E66.9 Obesity, unspecified; I35.0 Nonrheumatic aortic (valve) stenosis; E11.40 Type 2 diabetes mellitus with diabetic neuropathy, unspecified; I10 Essential (primary) hypertension; Z79.4 Long term (current) use of insulin; Z79.899 Other long term (current) drug therapy; Z92.3 Personal history of irradiation; Z99.3 Dependence on wheelchair; Z88.5 Allergy status to narcotic agent; Z87.440 Personal history of urinary (tract) infections; Z79.1 Long term (current) use of non-steroidal anti-inflammatories (NSAID)
CPT/HCPCS: 99349

== ENCOUNTER 2018-12-25 12:18 | Outpatient (CLI) | payer SELFPAY | END 2018-12-25 12:19 | disposition EMS.NT | LOC: EMS 12:18 | PROVIDERS: ATTEND Surgery | DX: R26.2 Difficulty in walking, not elsewhere classified (principal) ==

== ENCOUNTER 2018-12-25 13:06 | Emergency (ER) | payer MEDICARE, OTHER ==
[2018-12-25] MEDS ORDERED: ONDANSETRON 4 MG/2 ML VIAL IVP STA ×2 (14:24→21:17)
[2018-12-25] MEDS ORDERED: fentaNYL 100 MCG/2 ML VIAL IVP STA ×2 (14:24→16:41)
--- NOTE | 2018-12-25 14:29 | ED Physician Documentation ---
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 Despite that imaging at the beginning of November showed progression and concern for imminent collapse of the spinal column. She is very sensitive to opiates, she was started on methadone which really is not helpful, and all other opiates she is ever tried is made her vomit. She has a pending referral to a spine surgeon in [place] but pain is severe, greater than 10, and intolerable and she is unable to walk due to pain. She denies weakness, numbness, or tingling but she feels like her legs are on fire.) Review of Systems Ten Systems: 10 systems reviewed and negative Constitutional: reports: Reviewed and negative Cardiac: reports: Reviewed and negative Respiratory: reports: Reviewed and negative PD PAST MEDICAL HISTORY - Past Medical History Cardiovascular: Hypertension Respiratory: Asthma Endocrine/Autoimmune: Type 2 diabetes Psych: None Musculoskeletal: Osteoarthritis, Osteoporosis, Osteopenia, Fatigue, Chronic back pain Derm: None - Past Surgical History Past Surgical History: Yes /DIRECTOR OF SECURITY: Mastectomy - Present Medications Home Medications: Ambulatory Orders Medication Instructions Recorded Confirmed Calcium Carb/Vit D3/Minerals 2 each PO DAILY 06/13/13 12/18/18 [Calcium 1,200 mg Tablet Chew] Carvedilol 6.25 mg PO DAILY 06/13/13 12/18/18 Insulin Glargine,Hum.rec.anlog 50 unit SQ ACHS 05/13/14 12/18/18 [Lantus] Prochlorperazine [Compazine] 5 mg PO Q6H PRN 05/13/14 12/18/18 Insulin Aspart [Novolog] 25 units SQ AC 02/17/15 12/18/18 Ondansetron HCl [Zofran] 4 - 8 mg PO Q6H PRN 10/01/15 12/18/18 Capecitabine 2,000 mg PO .BID 1 WEEK ON/OFF 07/02/17 12/18/18 Meloxicam 7.5 mg PO DAILY 10/10/17 12/18/18 Albuterol Sulfate [Proair 2 puffs INH Q4H PRN 12/03/17 12/18/18 Respiclick] Fluticasone/Vilanterol [Breo 1 puffs INH DAILY PRN MDD 12/03/17 12/18/18 Ellipta 200-25 Mcg INH] exacerbation amLODIPine [Norvasc] 5 mg PO DAILY #30 tablet 12/06/17 12/18/18 Ipratropium/Albuterol [Duoneb] 1 amp INH Q4HR PRN 12/21/17 12/18/18 Methocarbamol 500 mg PO Q6HR PRN 02/13/18 12/18/18 Omeprazole 40 mg PO DAILY 04/20/18 12/18/18 Gabapentin 600 mg PO .1400 & HS MDD titrating 11/03/18 12/18/18 up Methadone 5 mg PO DAILY MDD trialing for 12/18/18 12/18/18 tolerance Pregabalin [Lyrica] 50 - 100 mg PO QDBREAKFAST 12/18/18 12/18/18 - Allergies Allergies/Adverse Reactions: Allergies Allergy/AdvReac Type Severity Reaction Status Date / Time erythromycin base AdvReac Severe Itching Verified 12/02/17 16:36 [Erythromycin Base] ketamine AdvReac Severe Hallucinati Verified 12/02/17 16:36 ons Latex, Natural Rubber AdvReac Mild Itching Verified 12/02/17 16:36 codeine [Codeine] AdvReac Anxiety Verified 12/02/17 16:36 oxycodone AdvReac Nausea Verified 12/18/18 19:44 - Social History Does the pt smoke?: No Smoking Status: Never smoker Does the pt drink ETOH?: No Does the pt have substance abuse?: No - Immunizations Immunizations are current?: Yes - POLST Patient has POLST: No PD ED PE NORMAL - Vitals Vital signs reviewed: Yes - General General: Alert and oriented X 3, No acute distress - HEENT HEENT: PERRL, EOMI - Neck Neck: Supple, no meningeal sign, No bony TTP - Cardiac Cardiac: RRR, No murmur - Respiratory Respiratory: No respiratory distress, Clear bilaterally - Abdomen Abdomen: Soft, Non tender - Derm Derm: Normal color, Warm and dry - Extremities Extremities: Other (She is all but areflexic in the lower extremities but seems to have intact sensation throughout as well as flexion and extension at the ankles but I am unable to check flexion and extension at the knees due to pain when I range her.) - Neuro Neuro: Alert and oriented X 3, Normal speech Results - Vitals Vitals: Vital Signs - 24 hr 12/25/18 12/25/18 13:14 19:22 Temperature 36.5 C Heart Rate 95 99 Respiratory 20 20 Rate Blood Pressure 149/85 H 181/99 H O2 Saturation 95 95 Oxygen O2 Source Room air - Labs Labs: Laboratory Tests 12/25/18 12/25/18 12/25/18 16:01 16:01 16:01 WBC 5.4 RBC 4.03 L Hgb 12.7 Hct 38.0 MCV 94.4 MCH 31.5 H MCHC 33.4 RDW 16.7 H Plt Count 175 MPV 6.7 L Neut # (Auto) 3.4 Lymph # (Auto) 1.2 L [place] # (Auto) 0.6 Eos # (Auto) 0.2 Baso # (Auto) 0.1 Absolute Nucleated RBC 0.00 Nucleated RBC % 0.1 PT 13.2 H INR 1.2 Sodium 137 Potassium 4.3 Chloride 97 L Carbon Dioxide 33 H Anion Gap 7.0 BUN 15 Creatinine 0.7 Estimated GFR (MDRD) 82 L Glucose 161 H Calcium 9.7 Total Bilirubin 0.6 AST 26 ALT 16 Alkaline Phosphatase 83 Total Protein 6.6 L Albumin 3.2 Globulin 3.4 Albumin/Globulin Ratio 0.9 L Lipase 29 - Rads (name of study) L SPine CT Radiology: EMP read contemporaneously (IMPRESSION: Extensive metastatic disease to bone most marked of the sacrum and L4. Spinal canal encroachment by degenerative change and tumor particularly at L3-L4, L4-L5, and the sacrum. MRI may be useful in evaluating the degree of spinal canal encroachment and for potential cord compression.) PD MEDICAL DECISION MAKING - ED course ED course: This is a 73-year-old woman with known metastatic breast cancer and known metastases to spine who presents with uncontrolled pain and worsening metastases related pain to the spine despite recent radiation therapy. Pain was difficult to control here especially given that she is very sensitive to narcotics with nausea as a side effect but we were able to manage her with divided doses of fentanyl but also heavy use of antiemetics and Decadron and Toradol. The patient requested transfer to [facility] for spinal consult which is not unreasonable. We had significant difficulty getting a hold of the transfer center at [facility] and there were significant delays I guess because of their volume. I did speak with Dr. Angel Serrano There who reviewed her images and did not really think surgery was an option nor was vertebroplasty. They did offer to accept the patient in transfer. I went back and talked to the patient and Shared to the discussion and she would like me to call the [facility] for a second opinion. Case was then discussed by phone with Dr. Zamudio at [facility] who reviewed the images and feels there may be some intervention warranted and accept her in transfer for further evaluation and treatment. Departure - Departure Disposition: 02 Transfer Acute Care Hosp Clinical Impression: Bone metastasis Back pain Qualifiers: Back pain location: low back pain Chronicity: acute Back pain laterality: bilateral Sciatica presence: without sciatica Qualified Code(s): M54.5 - Low back pain Pathologic compression fracture of spine Qualifiers: Encounter type: initial encounter Qualified Code(s): M48.50XA - Collapsed vertebra, not elsewhere classified, site unspecified, initial encounter for fracture Condition: Serious
--- NOTE | 2018-12-25 15:53 | CT Report ---
Reason: LBP known mets Procedure Date: 12/25/2018 Accession Number: [id number] / [id number] Procedure: CT - Lumbar Spine W/O CPT Code: FULL RESULT: EXAM: CT LUMBAR SPINE WITHOUT CONTRAST EXAM DATE: 12/25/2018 02:58 PM. CLINICAL HISTORY: LBP known mets. Metastatic breast cancer COMPARISONS: CT scan abdomen and pelvis 11/17/2018, lumbosacral spine plain films 04/16/2010. TECHNIQUE: Thin-section axial images were acquired of the lumbar spine from T12 to S1 without contrast. Post-processing: Coronal and sagittal reformats. Other: None. In accordance with CT protocol optimization, one or more of the following dose reduction techniques were utilized for this exam: automated exposure control, adjustment of mA and/or KV based on patient size, or use of iterative reconstructive technique. FINDINGS: Alignment: Grade 1 anterior listhesis of L4 on L5 Bones: Innumerable lytic destructive lesions of bone most marked at L4 and the sacrum. Partial compression L4. Disk Levels/Facets: T12-L1 through L5-S1: degenerative disk space narrowing L5-S1 and L4-L5 with vacuum phenomenon at the L4-L5 level multilevel degenerative facet joint arthropathy. There is extensive abnormal soft tissue involving the sacrum, likely affecting the sacral nerve roots. There is central spinal and neural foraminal stenosis at L4-L5 and L3-L4. Possible central stenosis L2-L3 IMPRESSION: Extensive metastatic disease to bone most marked of the sacrum and L4. Spinal canal encroachment by degenerative change and tumor particularly at L3-L4, L4-L5, and the sacrum. MRI may be useful in evaluating the degree of spinal canal encroachment and for potential cord compression. [facility]
[2018-12-25 16:06] LABS: BASOPHILS # (AUTO) 0.1 10^3/uL (0.0-0.1); BASOPHILS % (AUTO) 0.9 %; EOSINOPHILS # (AUTO) 0.2 10^3/uL (0.0-0.7); HGB - HEMOGLOBIN 12.7 g/dL (12.0-16.0); LYMPHOCYTES # (AUTO) 1.2 10^3/uL (1.5-3.5); LYMPHOCYTES % (AUTO) 21.9 %; MEAN CORPUSCULAR HEMOGLOBIN 31.5 pg (27.0-31.0); MEAN CORPUSCULAR HGB CONC 33.4 g/dL (32.0-36.0); MEAN CORPUSCULAR VOLUME 94.4 fL (81.0-99.0); MEAN PLATELET VOLUME 6.7 fL (7.9-10.8); MONOCYTES # (AUTO) 0.6 10^3/uL (0.0-1.0); MONOCYTES % (AUTO) 11.1 %; NEUTROPHILS # (AUTO) 3.4 10^3/uL (1.5-6.6); NEUTROPHILS % (AUTO) 62.1 %; PLT - PLATELET COUNT 175 10^3/uL (130-450); RED BLOOD COUNT 4.03 10^6/uL (4.20-5.40); RED CELL DISTRIBUTION WIDTH 16.7 % (12.0-15.0); WHITE BLOOD COUNT 5.4 x10^3/uL (4.8-10.8)
[2018-12-25 16:13] LABS: INR 1.2 (0.8-1.2); PT - PROTHROMBIN TIME 13.2 secs (9.9-12.6)
[2018-12-25 16:21] LABS: ALBUMIN 3.2 g/dL (3.2-5.5); ALBUMIN/GLOBULIN RATIO 0.9 (1.0-2.2); BILIRUBIN,TOTAL 0.6 mg/dL (0.2-1.0); CALCIUM 9.7 mg/dL (8.5-10.3); CREATININE 0.7 mg/dL (0.4-1.0); TOTAL PROTEIN 6.6 g/dL (6.7-8.2)
[2018-12-25] MEDS ORDERED: KETOROLAC 30 MG/ML VIAL IVP STA (16:41)
[2018-12-25] MEDS ORDERED: DEXAMETHASONE 10 MG/ML VIAL IVP STA (16:41)
[2018-12-25 21:17] VITALS: BP 163/70
== END 2018-12-25 21:29 | disposition short-term general hospital (02) ==
LOC: ED 13:06
DX: M48.57XA Collapsed vertebra, not elsewhere classified, lumbosacral region, initial encounter for fracture (principal); C79.51 Secondary malignant neoplasm of bone; M51.37 Other intervertebral disc degeneration, lumbosacral region; M48.07 Spinal stenosis, lumbosacral region; Z08 Encounter for follow-up examination after completed treatment for malignant neoplasm; Z85.3 Personal history of malignant neoplasm of breast; Z90.10 Acquired absence of unspecified breast and nipple; R11.2 Nausea with vomiting, unspecified; T40.3X5A Adverse effect of methadone, initial encounter; I10 Essential (primary) hypertension; E11.9 Type 2 diabetes mellitus without complications; Z79.4 Long term (current) use of insulin
CPT/HCPCS: 36415; 72131; 80053; 83690; 85025; 85610; 96374; 96375; 96376; 99283; 99284; 99285

== ENCOUNTER 2018-12-25 21:29 | Outpatient (CLI) | payer MEDICARE, OTHER | END 2018-12-25 21:30 | disposition short-term general hospital (02) | LOC: EMS 21:29 | PROVIDERS: ATTEND Surgery | DX: G89.3 Neoplasm related pain (acute) (chronic) (principal); C79.51 Secondary malignant neoplasm of bone; M48.50XA Collapsed vertebra, not elsewhere classified, site unspecified, initial encounter for fracture | CPT/HCPCS: A0425; A0426 ==

== ENCOUNTER 2019-03-21 14:00 | Outpatient (CLI) | payer MEDICARE, OTHER ==
--- NOTE | 2019-03-21 19:32 | CONSULTATION NOTE ---
Palliative Care Follow Up - Referral Referring Provider: Dr. Patricia Hatfield Time of Visit: [id number] Referral setting: Home Referral Reason: Metastatic Breast Ca to the bones/Pain of neoplastic origin - Information Sources Records reviewed: Previous records reviewed History/Review of Systems obtained from: Patient, Family ( present does not particpate) Exam limitations: No limitations - History of Present Illness Update Brief HPI Update: This is a 73-year-old woman who has had a complicated and drawn out series of unfortunate events over the last few months. She did present with acute and escalating pain, was found to have an L4 burst fracture, and was admitted to [facility], for an L4 kyphoplasty. She was hospitalized from 12/25/2018 to 01/13/2019 for recovery, pain control, and rehab. She did receive some relief from this, but did require SNF follow-up. Unfortunately she did develop There are few days at the SNF, she was admitted to [facility] 01/16/2019 for alterations in her mental status. She was found to have acute hypercapnic respiratory failure due to asthma exacerbation, acute encephalopathy due to hypercapnia and was discharged at that point in time to [facility]. It was thought part of the exacerbation, was secondary to patient had increased sedation on her tramadol. Patient continued to develop an exacerbation of her pain yet again, the pain was escalating and in the sacral region. She did go [facility] 02/2019 for radiation to the sacrum, with some improvement. She has had a long-standing history with her breast cancer, including multiple rounds of chemotherapy, radiation to various bones, and challenges not only related to her morbid obesity but pain control. Patient is currently on 4Blox dosing of Cytoxan 100 mg twice daily and methotrexate 2.5 mg twice daily 2 times a week.Patient is quite intolerant to opioids, often gets nausea and vomiting, but has managed to use hydrocodone for breakthrough pain with the addition of scopolamine and ondansetron. Patient also has known aortic stenosis, did develop CHF, has had her medications redone regarding her cardiac status, and is pending follow-up with cardiology. She has recently seen her primary care provider, patient has lost 35 pounds over this episode, and has needed her insulin adjusted. Patient is well-known to palliative care team, is supported both by palliative care nurse practitioner and palliative care make up operator helper. She did admit to has high anxiety related to missing her "team". She is happy to be home, she is familiar with Dr. Bush the [facility] nurses, and now will have home health supporting her as she transitions back to home setting. Pain management continues to be quite a challenge, she does report she has pain in her right leg, she describes it as "sciatica" sharp shooting down her right leg. She is also developed some left leg pain, worsening in the hip. Her current pain regimen includes gabapentin 1200 mg 3 times daily, methocarbamol 1000 mg 3 times daily, acetaminophen for breakthrough pain, CBD oil, and has been using the hydrocodone 5 mg/acetaminophen for when patient knows she has to go out, or has severe pain. She has been able to do that with addition to scope olamine and ondansetron. That she has not had any nausea the last couple times she is taking it. Patient does remain somewhat overwhelmed, but very much encouraged. Dr. Truong is making arrangements for patient to have port placed, she will be receiving CMF. 's goals have included continue with treatment, as long as this is adding to her quality and quantity of life. She reports she has been offered hospice twice. She still feels she can go forward, when asked about the threshold, it would be bedbound with uncontrolled pain, or if metastatic disease to other organs or brain. Social History - Living Situation Living arrangement: At home Living Situation: With spouse/s.o. 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 Today we are dealing with the failure of her septic system. There are multiple financial challenges as well as her 's health. She tries to remain upbeat, her barron is of much importance to her, and she is very glad to be home. Medications/Allergies - Medications Home Medications: Ambulatory Orders Medication Instructions Recorded Confirmed Carvedilol 6.25 mg PO BID 06/13/13 03/21/19 Insulin Glargine,Hum.rec.anlog 45 unit SQ ACHS 05/13/14 03/21/19 [Lantus] Insulin Aspart [Novolog] 10 units SQ QID MDD sliding scale 02/17/15 03/21/19 Ondansetron HCl [Zofran] 4 - 8 mg PO Q6H PRN 10/01/15 03/21/19 Albuterol Sulfate [Proair 2 puffs INH Q4H PRN 12/03/17 03/21/19 Respiclick] Fluticasone/Vilanterol [Breo 1 puffs INH DAILY PRN MDD 12/03/17 03/21/19 Ellipta 200-25 Mcg INH] exacerbation amLODIPine [Norvasc] 5 mg PO DAILY #30 tablet 12/06/17 03/21/19 Ipratropium/Albuterol [Duoneb] 1 amp INH Q4HR PRN 12/21/17 03/21/19 Methocarbamol 1,000 mg PO Q8HR PRN 02/13/18 03/21/19 Omeprazole 40 mg PO DAILY 04/20/18 03/21/19 Gabapentin 1,200 mg PO TID MDD titrating up 11/03/18 03/21/19 Acetaminophen [Tylenol Extra 1,000 mg PO Q6HR PRN 03/19/19 03/21/19 Strength] Calcium Carbonate [Calcium] 500 mg PO DAILY 03/19/19 03/21/19 Cholecalciferol (Vitamin D3) 6,000 unit PO DAILY 03/19/19 03/21/19 [Vitamin D3] Cyclophosphamide 100 mg PO DAILY 03/19/19 03/21/19 Furosemide 40 mg PO DAILY 03/19/19 03/21/19 Hydrocodone/Acetaminophen [[place] 1 tab PO Q6HR 03/19/19 03/21/19 5-325 Tablet] Methotrexate 2.5 mg PO BID 03/19/19 03/21/19 Scopolamine 1 patch TD Q3D PRN 03/19/19 03/21/19 Meloxicam 7.5 mg PO DAILY 03/21/19 03/21/19 - Allergies Allergies/Adverse Reactions: Allergies Allergy/AdvReac Type Severity Reaction Status Date / Time erythromycin base AdvReac Severe Itching Verified 03/19/19 12:34 [Erythromycin Base] ketamine AdvReac Severe Hallucinati Verified 03/19/19 12:34 ons Latex, Natural Rubber AdvReac Mild Itching Verified 03/19/19 12:34 codeine [Codeine] AdvReac Anxiety Verified 03/19/19 12:34 oxycodone AdvReac Nausea Verified 03/19/19 12:34 Review of Systems - Constitutional Constitutional: reports: Fatigue, Weight loss (reports lost 35 pounds with recent hospitalizations). denies: Fever, Chills - Eyes Eyes: reports: Vision loss, Corrective lenses - Ears, Nose & Throat Ears, Nose & Throat: reports: Nasal congestion, Dental pain, Dry mouth - Cardiovascular Cardiovascular: reports: Exertional dyspnea, Decr. exercise tolerance. denies: Chest pain - Respiratory Respiratory: reports: SOB with exertion. denies: SOB at rest - Gastrointestinal Gastrointestinal: reports: Diarrhea (reports loose stool today), Good appetite. denies: Constipation, Nausea, Vomiting - Genitourinary Genitourinary: reports: Urgency (with furosemide), Incontinence (stress) - Musculoskeletal Musculoskeletal: reports: Muscle pain, Back pain, Muscle aches, Stiffness, Limited range of motion, Muscle weakness, Joint pain, Assistive devices, Transfer issues - Integumentary Integumentary: reports: Dryness, Other ("recliner butt") - Neurological Neurological: reports: General weakness, Memory problems (mild) - Psychiatric Psychiatric: reports: Depression, Anxiety - Endocrine Endocrine: reports: Diabetes type 2 (adjusted recent meds) - Hematologic/Lymphatic Hematologic/Lymphatic: reports: Recurrent infections (hx of utis) - All Other Systems All Other Systems: reports: Reviewed and negative Physical Exam - Vital Signs Temperature: 97.2 C Pulse Rate: 68 Respiratory Rate: 18 O2 Saturation: 94 (on oxygen at night) - Physical Exam General Appearance: positive: No acute distress, Anxious Eyes Bilateral: positive: Normal inspection ENT: positive: Dry mucous membranes Neck: positive: No JVD, Trachea midline Cardiovascular: positive: Regular rate & rhythm Respiratory: positive: No respiratory distress, Diminished in bases. negative: Wheezes, Rales, Rhonchi Abdomen: positive: Soft, Obese Skin: positive: Pallor Extremities: positive: No pedal edema Neurologic/Psychiatric: positive: Oriented x3, Mood/affect nml, Weakness Palliative Care - POLST Patient has POLST: Yes POLST Status: DNR, Selective Treatment Pain: Pain worsening, Location (Patient on gabapentin 1200 mg 3 times daily, she does have known compressed nerves, sharp shooting down her legs right greater than left. Is also on methocarbinol thousand milligrams 3 times daily, she does have severe spasms in her lower back, This is been an alternative we have been able to use for her secondary to her multiple medication sensitivities. She has restarted back on the meloxicam 7.5 milligrams daily versus indomethacin, And "saves" her hydrocodone for when she is leaving the home. She does report awakening in severe pain, does have acetaminophen for breakthrough pain though is not currently effective.) Tiredness/Fatigue: Moderate (4-6) Drowsiness/Sedation: Moderate (4-6) Nausea: None Depression: Moderate (4-6) Anxiety: Severe (7-10) Dyspnea: Moderate (4-6) Anorexia: Mild (1-3) Sleep: Sleeps poorly (related to wakening in pain) Constipation: Yes, Opoid induced, Managed Feelings of wellbeing/Perceived Quality of Life: Good, Acceptable, Improved Performance Status: Patient does admit to exacerbating her pain, on Tuesday when she tried 8 steps. We discussed at length the instability of her pelvis, and concern for further pathologic fractures and stressing these. She is using a dry goods clerk's chair to get up and down stairs of her trilevel. She is able to walk With the support of modified walker, unfortunately does not fit in their bathroom. Her pain is exacerbated with weightbearing and ambulation. Richie does help her with bathing, she has declined a home health aide. At this point in time she remains homebound, secondary to his taxing considerable effort to leave the home. - Palliative Care Discussion: She does very thankful to be home, and back to her "team". Patient needed to tell her story, she has had many traumatic events, and near experiences. She also has had escalating pain, and severe suffering. We did discuss in the context that she has done her DNA R, with selective treatments. She reports she has been offered hospice twice, once in [facility] when she was oversedated, and again Dr. Bonilla gave her this is a choice. Patient has been tempted to transition and let this go, but she has been improving and remains quite hopeful as Dr. Bonilla, is a treatment that he is "excited for" and feels with by her more time and slow progression. She does have insight into this is a terminal disease, but it has as of yet only bone mets. We discussed with the threshold would be for transition to hospice, it would be intolerable her suffering related to her pain, as well as if she had metastatic disease to her brain or other vital organs. Patient remains quite faithful, is very connected to her family, and feels her would do very poorly without her. Results - Lab Results Lab results reviewed: Yes Impression and Recommendations - Palliative Care Impression: This is a 73-year-old woman with metastatic breast cancer to the bones, she has had progressive bone pain and bone disease. She recently was treated with a kyphoplasty to L4 pathologic fracture, and has received more recently radiation. She is currently on oral chemotherapy awaiting port placement for initiation of CMF. Patient did have an episode of exacerbated pain over the weekend, when she attempted to navigate stairs. Palliative care team to continue to provide support with the focus on quality of life issues, anticipatory guidance, and transition to hospice when appropriate Recommendations/Counseling Done: 1. Pain of neoplastic origin. We have fairly much's maximized alternatives to opioids at this point in time. Patient uses it for her "rescue". Did discuss in the context of side effects, patients can develop tolerance to sedation and nausea. We discussed in the context of her severe pain on awakening and left hip pain for sleeping, encouraged to try hydrocodone/acetaminophen at least a half a tab. Discussed nausea management, at this point in time I would recommend we stop the Scopolamine, she is on gabapentin, already has some poor dentition, at risk for mucositis with her Cytoxan/methotrexate. Recommended she premedicate with ondansetron, and challenge herself to try the opioid, as we do need some tools in the future. She had previously tried the methadone with resulting nausea, the methadone is more long-acting. She does have a test prescription of 10 tabs of hydromorphone as well. We discussed this is a good time to trial opioids, versus an crisis when we need them more acutely. She is in agreement to give this a try. She is being set up for fluoroscopy and steroid injection in her left hip, she is also going to add acupuncture to her regimen as well 2. Depression. Patient is somewhat tearful, and it has been a difficult road, she is very happy to be home. She now faces though more multiple stressors regarding finances, and her septic system failed. She is anxious to get on with her next phase, and is hopeful for both quality and quantity of life with her treatment. Counseling provided to normalize stress of transitions, and finding a new normal. 3. Stage II decub buttocks. This is long-standing been problematic, patient's been spending more time in a recliner and difficult finding cushion for pressure relief. She is working with home health for management, OT and PT are coming in, will have them work with problem solving. We have ordered several cushions in the past, without significant provement and ongoing discomfort. 3. Metastatic breast cancer. Patient awaiting Port-A-Cath placement, she is to have this done at [facility] secondary to her multiple comorbidities and concerns for complications. She is awaiting contact for her appointments. 4. Advanced care planning. Patient does have POLST in place with DNA R/selective treatments. She has identified the threshold for transition to hospice. Her current goals though include improving her functional status, control of her pain, and to initiate new chemotherapy. [id number] for home health, patient does require nursing for oversight for medication adherence, CHF teaching, Management of skin issues, and monitoring for side effects of chemotherapy. Physical therapy for home safety eval, strengthening, adjustment of walker and equipment. OT for ADLs, bathroom set up, and toileting aids. Patient has declined home health aide at this point in time. Time Spent: 60 minutes with greater than 50% of this done in counseling regarding pain and symptom management, anticipatory guidance and advanced care planning, review of patient's story, counseling for depression, and addressing high anxiety
== END 2019-03-21 14:01 | disposition home or self-care (01) ==
LOC: PC 14:00
PROVIDERS: ATTEND Nurse Practitioner Adult Health
DX: Z51.5 Encounter for palliative care (principal); G89.3 Neoplasm related pain (acute) (chronic); C79.51 Secondary malignant neoplasm of bone; C50.919 Malignant neoplasm of unspecified site of unspecified female breast; I35.0 Nonrheumatic aortic (valve) stenosis; M79.7 Fibromyalgia; E11.9 Type 2 diabetes mellitus without complications; M19.90 Unspecified osteoarthritis, unspecified site; Z66 Do not resuscitate; F32.9 Major depressive disorder, single episode, unspecified; F41.9 Anxiety disorder, unspecified; L89.302 Pressure ulcer of unspecified buttock, stage 2; I50.9 Heart failure, unspecified; J45.909 Unspecified asthma, uncomplicated; E66.01 Morbid (severe) obesity due to excess calories; M79.605 Pain in left leg; M79.604 Pain in right leg; R63.4 Abnormal weight loss; H54.7 Unspecified visual loss; N39.46 Mixed incontinence; Z87.440 Personal history of urinary (tract) infections; Z79.899 Other long term (current) drug therapy; Z79.4 Long term (current) use of insulin; Z79.51 Long term (current) use of inhaled steroids; Z79.891 Long term (current) use of opiate analgesic
CPT/HCPCS: 99350

== ENCOUNTER 2019-05-03 12:30 | Outpatient (CLI) | payer MEDICARE, OTHER ==
--- NOTE | 2019-05-03 16:58 | CONSULTATION NOTE ---
Palliative Care Follow Up - Referral Referring Provider: Dr. Sahil Hatfield Time of Visit: [id number] Referral setting: Home Referral Reason: Met breast Cancer with alma mets/depression - Information Sources Records reviewed: Previous records reviewed History/Review of Systems obtained from: Patient Exam limitations: No limitations - History of Present Illness Update Brief HPI Update: This is a 73-year-old woman who has metastatic breast cancer with extensive bony mets. She is recently home from a long extensive series of hospitalizations related to her escalating pain, and complications. Please see 03/21/2019 note for further details. She is being followed by [facility], is currently on oral chemotherapy of Cytoxan 100 mg daily, and methotrexate 2.5 mg twice daily and Tuesday. She has had a port placed, and waiting in the future for initiation of further chemotherapy. She has been extensively treated since her initial diagnosis in 2016. Patient unfortunately has had a fall about 2 weeks ago, this has escalated her pain. She reports now it is much more focused on her left hip, top of the iliac crest, and has resulting left sciatica particularly radiating down her left calf. She has received good results in the past with radiation, is hoping to be eligible for her current condition. She would like a referral to [facility], she has had radiation for pain control to the sacrum, L-spine, right hip, left ninth rib, and right shoulder in the past. Her pain regimen is further complicated by the fact she cannot tolerate opioids. She is currently being controlled on maximum doses of gabapentin, she no longer has spasms, discussion today to titrate down off her methocarbamol. She has been able to use the hydrocodone/acetaminophen 1/2-1 tab for severe breakthrough pain with some relief. She continues with intermittent nausea related to this. Patient also presents quite tearful, overwhelmed with her current condition, and most likely exacerbated by her current symptoms of a UTI today. She is following up with Dr. Hatfield's office regarding this issue. Patient also has known aortic stenosis, CHF, diabetes type 2, asthma, and morbid obesity. 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 Social History - Living Situation Living arrangement: At home Living Situation: With spouse/s.o. Support System: Patient lives at home with her , who himself has some health issues. 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 Her barron is important to her, she is happy to be home, but with her increased pain worried about getting down the stairs. Her is her primary caregiver, she is needing more assistance with her ADLs. Medications/Allergies - Medications Home Medications: Ambulatory Orders Medication Instructions Recorded Confirmed Carvedilol 6.25 mg PO BID 06/13/13 05/06/19 Insulin Glargine,Hum.rec.anlog 45 unit SQ ACHS 05/13/14 05/06/19 [Lantus] Insulin Aspart [Novolog] 10 units SQ QID MDD sliding scale 02/17/15 05/06/19 Ondansetron HCl [Zofran] 4 - 8 mg PO Q6H PRN 10/01/15 05/06/19 Albuterol Sulfate [Proair 2 puffs INH Q4H PRN 12/03/17 05/06/19 Respiclick] Fluticasone/Vilanterol [Breo 1 puffs INH DAILY PRN MDD 12/03/17 05/06/19 Ellipta 200-25 Mcg INH] exacerbation amLODIPine [Norvasc] 5 mg PO DAILY #30 tablet 12/06/17 05/06/19 Ipratropium/Albuterol [Duoneb] 1 amp INH Q4HR PRN 12/21/17 05/06/19 Methocarbamol 1,000 mg PO Q8HR PRN MDD titrating 02/13/18 05/06/19 down Omeprazole 40 mg PO DAILY 04/20/18 05/06/19 Gabapentin 1,200 mg PO TID MDD titrating up 11/03/18 05/06/19 Acetaminophen [Tylenol Extra 1,000 mg PO Q6HR PRN 03/19/19 05/06/19 Strength] Calcium Carbonate [Calcium] 500 mg PO DAILY 03/19/19 05/06/19 Cholecalciferol (Vitamin D3) 6,000 unit PO DAILY 03/19/19 05/06/19 [Vitamin D3] Cyclophosphamide 100 mg PO DAILY 03/19/19 05/06/19 Furosemide 20 mg PO DAILY 03/19/19 05/06/19 Hydrocodone/Acetaminophen [[place] 1 tab PO Q6HR 03/19/19 05/06/19 5-325 Tablet] Methotrexate 2.5 mg PO .BID TH/Tue03/19/19 05/06/19 Scopolamine 1 patch TD Q3D PRN 03/19/19 05/06/19 Meloxicam 7.5 mg PO DAILY 03/21/19 05/06/19 - Allergies Allergies/Adverse Reactions: Allergies Allergy/AdvReac Type Severity Reaction Status Date / Time erythromycin base AdvReac Severe Itching Verified 04/16/19 15:31 [Erythromycin Base] ketamine AdvReac Severe Hallucinati Verified 04/16/19 15:31 ons Latex, Natural Rubber AdvReac Mild Itching Verified 04/16/19 15:31 codeine [Codeine] AdvReac Anxiety Verified 04/16/19 15:31 oxycodone AdvReac Nausea Verified 04/16/19 15:31 Review of Systems - Constitutional Constitutional: reports: Fatigue, Malaise, Weakness. denies: Fever - Eyes Eyes: reports: Vision loss - Ears, Nose & Throat Ears, Nose & Throat: reports: Hearing loss, Nasal congestion, Dry mouth - Cardiovascular Cardiovascular: reports: Decr. exercise tolerance. denies: Edema - Respiratory Respiratory: reports: SOB with exertion. denies: Wheezing, SOB at rest - Gastrointestinal Gastrointestinal: reports: Nausea, Good appetite. denies: Constipation - Genitourinary Genitourinary: reports: Dysuria, Frequency, Urgency (bringing in speciman to MD office; has been in touch; unable to void at visit;), Incontinence - Musculoskeletal Musculoskeletal: reports: Back pain, Muscle aches, Stiffness, Limited range of motion, Muscle weakness, Joint pain (left hip), Assistive devices - Integumentary Integumentary: reports: Dryness, Hair changes (alopecia from chemo) - Neurological Neurological: reports: General weakness, Headache - Psychiatric Psychiatric: reports: Depression, Anxiety - Endocrine Endocrine: reports: Diabetes type 2 (good range 151 this am) - Hematologic/Lymphatic Hematologic/Lymphatic: reports: Anemia, Recurrent infections - All Other Systems All Other Systems: reports: Reviewed and negative Physical Exam - Vital Signs Temperature: 97.0 C Pulse Rate: 74 Respiratory Rate: 18 O2 Saturation: 96 Blood Pressure: 132/74 (sitting; 112/70 standing) - Physical Exam General Appearance: positive: No acute distress, Alert, Anxious Eyes Bilateral: positive: Normal inspection ENT: negative: Pharyngeal erythema, Oral lesions Neck: positive: No JVD, Trachea midline Cardiovascular: positive: Regular rate & rhythm Respiratory: positive: No respiratory distress, Diminished in bases. negative: Wheezes, Rales, Rhonchi Abdomen: positive: Non-tender, Soft, Nml bowel sounds, Obese Skin: positive: Pallor, Dryness Extremities: positive: No pedal edema Neurologic/Psychiatric: positive: Oriented x3, Weakness, Depressed mood/affect Palliative Care - POLST Patient has POLST: Yes POLST Status: DNR, Selective Treatment Pain: Pain worsening, Location (Lhip/exacerbated for two weeks since fall; feels though not acute trauma; has know mets in area; can isolate two distinct areas; pain sharp shooting and worsens with sitting and weight bearing; relieved with rest) Tiredness/Fatigue: Severe (7-10) Drowsiness/Sedation: Mild (1-3) Nausea: Mild (1-3) (intermittent) Depression: Moderate (4-6) Anxiety: Moderate (4-6) Dyspnea: Moderate (4-6) Anorexia: None Sleep: Variable sleep pattern Constipation: No Feelings of wellbeing/Perceived Quality of Life: Fair, Acceptable, Worsening (attributes to pain) Performance Status: Patient able to ambulate for a few steps, is able to get from sit to stand but with some difficulty. She does spend most of her time in the recliner. Her does help with toileting and bathing. - Palliative Care Discussion: Patient continues to struggle with quality of life, making meaning as she is so limited at this point in time and now more limited with her recent exacerbation of her pain. She is hopeful radiation has something more to offer her, but does admit to feelings of depression and helplessness. She is trying to continue to stay positive, finds this supported by home health team and ultrasound sonographer visits helpful. Results - Lab Results Lab results reviewed: Yes Lab and Imaging Results: CA 15 98.2 Impression and Recommendations - Palliative Care Impression: This is a 73-year-old woman with metastatic breast cancer to the bones only, having exacerbation of her bone pain. She is currently receiving oral chemot herapy, does have port placed for future treatment. She presents with moderate to high symptom burden, management of pain is challenged by her intolerance of opioids. Palliative care to continue provide support for pain and symptom management and anticipatory guidance Recommendations/Counseling Done: 1. UTI. Patient does present with her classic symptoms of UTI, she is already made contact with Dr. Hatfield, she will follow-up. If she is unable to get response to support she will give me a call. Encouraged to push fluids. 2. Pain of neoplastic origin. Patient currently managed on gabapentin 1200 mg 3 times daily. She does find intermittent use of the Vicodin helpful for rescue, is only needing 1-2 tabs. Patient is hopeful will be a candidate for further radiation in that left hip area, will facilitate referral with Dr. Bonilla. Patient with out further back spasms, counseling provided regarding titration pack of methocarbamol as most likely adding to her feelings of fatigue. 3. Depression. Patient does present with persistent tearfulness and feeling overwhelmed. Counseling provided regarding benefits and burdens of initiating antidepressant. She is somewhat reticent secondary to her high pill burden, will consider for the future. She is currently being supported by palliative care ultrasound sonographer, does find this helpful and coping. 4. Metastatic breast cancer. Patient does have her Port-A-Cath placed, for future chemotherapy if needed. Currently she is tolerating and responding to oral chemotherapy. She is somewhat distressed with her alopecia, has intermittent diarrhea but otherwise is tolerating fairly well. 5. Advanced care planning. Patient does have POLST in place, with DNA R/selective treatment. Her current goals include pursuing radiation for improved pain control, being able to improve her functional status, and continue on with active treatment for her breast cancer. Time Spent: 45 minutes with greater than 50% of this done in counseling regarding depression, pain, anticipatory guidance and psychosocial support
== END 2019-05-03 12:31 | disposition home or self-care (01) ==
LOC: PC 12:30
PROVIDERS: ATTEND Nurse Practitioner Adult Health
DX: Z51.5 Encounter for palliative care (principal); G89.3 Neoplasm related pain (acute) (chronic); C79.51 Secondary malignant neoplasm of bone; C50.919 Malignant neoplasm of unspecified site of unspecified female breast; M25.552 Pain in left hip; N39.0 Urinary tract infection, site not specified; Z66 Do not resuscitate; Z79.899 Other long term (current) drug therapy; F32.9 Major depressive disorder, single episode, unspecified; L65.9 Nonscarring hair loss, unspecified; T45.1X5D Adverse effect of antineoplastic and immunosuppressive drugs, subsequent encounter; M54.32 Sciatica, left side; I35.0 Nonrheumatic aortic (valve) stenosis; I50.9 Heart failure, unspecified; J45.909 Unspecified asthma, uncomplicated; E66.01 Morbid (severe) obesity due to excess calories; H54.7 Unspecified visual loss; H91.90 Unspecified hearing loss, unspecified ear; M54.9 Dorsalgia, unspecified; F41.9 Anxiety disorder, unspecified; M79.7 Fibromyalgia; E11.40 Type 2 diabetes mellitus with diabetic neuropathy, unspecified; M19.90 Unspecified osteoarthritis, unspecified site; Z79.4 Long term (current) use of insulin; Z79.891 Long term (current) use of opiate analgesic; Z87.440 Personal history of urinary (tract) infections; Z91.81 History of falling
CPT/HCPCS: 99349

== ENCOUNTER 2019-05-03 14:00 | Outpatient (CLI) | payer MEDICARE, OTHER | END 2019-05-03 23:59 | disposition home or self-care (01) | LOC: LAB.R 14:00 | PROVIDERS: ATTEND Family Medicine | DX: N39.0 Urinary tract infection, site not specified (principal) | CPT/HCPCS: 87086 ==

== ENCOUNTER 2019-05-21 10:02 | Outpatient (CLI) | payer MEDICARE, OTHER ==
--- NOTE | 2019-05-23 14:24 | Nuclear Medicine Report ---
Reason: L BREAST CA Procedure Date: 05/21/2019 Accession Number: [id number] / [id number] Procedure: NM - Bone Whole Body CPT Code: FULL RESULT: EXAM: BONE SCAN EXAM DATE: 05/21/2019 03:42 PM. CLINICAL HISTORY: L BREAST CA. COMPARISON: BONE SCAN 11/01/2018 12:20 PM ABDOMEN/PELVIS W/ 11/17/2018 1:32 PM LUMBAR SPINE W/O 12/25/2018 2:44 PM. TECHNIQUE: Following the intravenous administration of 31.3 mCi of technetium 99m MDP and an appropriate delay, a whole-body scan was performed in anterior and posterior projections. Site-specific spot views of the region of interest were obtained in various projections. FINDINGS: Normal renal radiotracer uptake and bladder activity. Normal soft tissue activity. Overall normal osseous uptake. As before there are multiple scattered foci of abnormal skeletal uptake involving the axial and proximal appendicular skeleton, involving the skull, bilateral scapulae, bilateral proximal humeri, bilateral ribs, sternum, multiple levels of the thoracic and lumbar spine most conspicuous at approximately L4, bilateral pelvis, left femoral head/neck. Compared with the prior study there is new focal right frontal calvarial uptake. Increased focal uptake in the region of the right humeral head, bilateral scapulae posteriorly. There is slightly increased uptake at a few rib lesions and there is new focal uptake at the left posterior fifth rib. Slightly increased uptake in a few pre-existing spinal lesions with new focal uptake at approximately L1 and L2. Modestly increased uptake involving the sacrum and/or posterior aimee. Similar probable degenerative uptake at the knees, moderately increased at the feet. IMPRESSION: 1. Multifocal osseous metastatic disease with evidence of interval progression from the 11/01/2018 comparison bone scan. [facility]
== END 2019-05-21 10:03 | disposition home or self-care (01) ==
LOC: DI 10:02
PROVIDERS: ATTEND Internal Medicine Hematology & Oncology
DX: C79.51 Secondary malignant neoplasm of bone (principal); Z85.3 Personal history of malignant neoplasm of breast; M25.552 Pain in left hip; R10.2 Pelvic and perineal pain
CPT/HCPCS: 78306

== ENCOUNTER 2019-05-23 14:01 | Outpatient (CLI) | payer MEDICARE, OTHER | END 2019-05-23 14:02 | disposition critical access hospital (66) | LOC: EMS 14:01 | PROVIDERS: ATTEND Surgery | DX: R50.9 Fever, unspecified (principal); R11.0 Nausea; R53.1 Weakness | CPT/HCPCS: A0425; A0429 ==

== ENCOUNTER 2019-05-23 14:17 | Inpatient (IN) | payer MEDICARE, OTHER ==
[2019-05-23 15:02] LABS: BASOPHILS % (AUTO) 0.5 %; EOSINOPHILS # (AUTO) 0.1 10^3/uL (0.0-0.7); EOSINOPHILS % (AUTO) 1.3 %; LYMPHOCYTES # (AUTO) 0.4 10^3/uL (1.5-3.5); LYMPHOCYTES % (AUTO) 6.8 %; MEAN CORPUSCULAR HEMOGLOBIN 30.8 pg (27.0-31.0); MEAN CORPUSCULAR HGB CONC 31.1 g/dL (32.0-36.0); MEAN PLATELET VOLUME 9.4 fL (7.9-10.8); MONOCYTES # (AUTO) 0.6 10^3/uL (0.0-1.0); MONOCYTES % (AUTO) 10.5 %; NEUTROPHILS # (AUTO) 4.4 10^3/uL (1.5-6.6); PLT - PLATELET COUNT 133 10^3/uL (130-450); RED CELL DISTRIBUTION WIDTH 16.9 % (12.0-15.0); WHITE BLOOD COUNT 5.6 x10^3/uL (4.8-10.8)
--- NOTE | 2019-05-23 15:08 | ED Physician Documentation ---
History of Present Illness - Stated complaint Stated Complaint: FEVER - Chief complaint Chief Complaint: Fever - History obtained from History obtained from: Patient, Family, EMS - History of Present Illness Timing: Today Pain level max: 0 Pain level now: 0 - Additonal information Additional information: states fever today. Tmax 104 at home. no other symptoms. No cough. no vomiting. No abdominal pain. No urinary symptoms. She has stage IV metastatic breast cancer. She is on palliative care with chemotherapy. Nothing makes it better or worse Review of Systems Ten Systems: 10 systems reviewed and negative Constitutional: reports: Fever Ears: denies: Ear pain Nose: denies: Rhinorrhea / runny nose, Congestion Throat: denies: Sore throat Cardiac: denies: Chest pain / pressure Respiratory: denies: Cough GI: reports: Nausea. 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 Psych: None Musculoskeletal: Osteoarthritis, Osteoporosis, Osteopenia, Fatigue, Chronic back pain Derm: None - Past Surgical History Past Surgical History: Yes /KITCHEN CLEANER: Mastectomy - Present Medications Home Medications: Ambulatory Orders Medication Instructions Recorded Confirmed Carvedilol 6.25 mg PO BID 06/13/13 05/23/19 Insulin Glargine,Hum.rec.anlog 45 unit SQ QPM 05/13/14 05/23/19 [Lantus] Insulin Aspart [Novolog] 10 units SQ BIDWM MDD sliding scale 02/17/15 05/23/19 Ondansetron HCl [Zofran] 4 - 8 mg PO Q6H PRN 10/01/15 05/23/19 Albuterol Sulfate [Proair 2 puffs INH Q4H PRN 12/03/17 05/23/19 Respiclick] Fluticasone/Vilanterol [Breo 1 puffs INH DAILY PRN MDD 12/03/17 05/14/19 Ellipta 200-25 Mcg INH] exacerbation amLODIPine [Norvasc] 5 mg PO DAILY #30 tablet 12/06/17 05/23/19 Methocarbamol 1,000 mg PO Q8HR PRN MDD titrating 02/13/18 05/23/19 down Omeprazole 40 mg PO QDAC 04/20/18 05/23/19 Acetaminophen [Tylenol Extra 1,000 mg PO Q8H PRN 03/19/19 05/23/19 Strength] Calcium Carbonate [Calcium] 500 mg PO DAILY 03/19/19 05/23/19 Cholecalciferol (Vitamin D3) 6,000 unit PO DAILY 03/19/19 05/23/19 [Vitamin D3] Cyclophosphamide 50 mg PO DAILY 03/19/19 05/23/19 Furosemide 40 mg PO DAILY 03/19/19 05/23/19 Hydrocodone/Acetaminophen [[place] 1 tab PO Q6HR PRN 03/19/19 05/23/19 5-325 Tablet] Methotrexate 2.5 mg PO .BID /Tue03/19/19 05/23/19 Scopolamine 1 patch TD Q3D PRN 03/19/19 05/23/19 Meloxicam 7.5 mg PO BID 03/21/19 05/23/19 Gabapentin [Neurontin] 1,200 mg PO TID 05/23/19 05/23/19 Insulin Aspart [Novolog] 1 - 3 unit SUBQ .SLIDINGSCALE 05/23/19 05/23/19 - Allergies Allergies/Adverse Reactions: Allergies Allergy/AdvReac Type Severity Reaction Status Date / Time Latex, Natural Rubber Allergy Mild Itching Verified 05/23/19 14:29 erythromycin base AdvReac Severe Itching Verified 05/23/19 14:29 [Erythromycin Base] ketamine AdvReac Severe Hallucinati Verified 05/23/19 14:29 ons codeine [Codeine] AdvReac Anxiety Verified 05/23/19 14:29 oxycodone AdvReac Nausea Verified 05/23/19 14:29 - Social History Does the pt smoke?: No Smoking Status: Never smoker Does the pt drink ETOH?: No Does the pt have substance abuse?: No - Immunizations Immunizations are current?: Yes - POLST Patient has POLST: Yes PD ED PE NORMAL - Vitals Vital signs reviewed: Yes - General General: Alert and oriented X 3, No acute distress, Well developed/nourished - HEENT HEENT: PERRL, Ears normal, Moist mucous membranes, Pharynx benign - Neck Neck: Supple, no meningeal sign, No adenopathy - Cardiac Cardiac: RRR, Strong equal pulses - Respiratory Respiratory: No respiratory distress, Clear bilaterally - Abdomen Abdomen: Soft, Non tender, Non distended - Back Back: No CVA TTP, No spinal TTP - Derm Derm: Warm and dry - Extremities Extremities: No calf tenderness / cord - Neuro Neuro: Alert and oriented X 3 - Psych Psych: Normal mood, Normal affect Results - Vitals Vitals: Vital Signs - 24 hr 05/23/19 05/23/19 05/23/19 14:20 14:34 16:10 Temperature 36.6 C 36.6 C Heart Rate 98 98 65 Respiratory 21 20 19 Rate Blood Pressure 118/61 118/75 119/56 L O2 Saturation 93 97 93 Oxygen O2 Source Nasal cannula Oxygen Flow Rate 2 - Labs Labs: Laboratory Tests 05/23/19 05/23/19 05/23/19 14:47 14:47 14:47 WBC 5.6 RBC 3.90 L Hgb 12.0 Hct 38.6 MCV 99.0 MCH 30.8 MCHC 31.1 L RDW 16.9 H Plt Count 133 MPV 9.4 Neut # (Auto) 4.4 Lymph # (Auto) 0.4 L [place] # (Auto) 0.6 Eos # (Auto) 0.1 Baso # (Auto) 0.0 Absolute Nucleated RBC 0.00 Nucleated RBC % 0.0 Sodium 136 Potassium 4.6 Chloride 95 L Carbon Dioxide 29 Anion Gap 12.0 BUN 17 Creatinine 0.8 Estimated GFR (MDRD) 71 L Glucose 293 H Glycated Hemoglobin Estim Average Glucose Lactic Acid 2.5 H Calcium 9.7 Total Bilirubin 0.8 AST 47 H ALT 39 Alkaline Phosphatase 131 H Total Protein 6.1 L Albumin 3.0 L Globulin 3.1 Albumin/Globulin Ratio 1.0 Lipase 40 Urine Color Urine Clarity Urine pH Ur Specific [place] Urine Protein Urine Glucose (UA) Urine Ketones Urine Occult Blood Urine Nitrite Urine Bilirubin Urine Urobilinogen Ur Leukocyte Esterase Urine RBC Urine WBC Urine WBC Clumps Ur Squamous Epith Cells Urine Bacteria Ur Microscopic Review Urine Culture Comments 05/23/19 05/23/19 14:47 15:50 WBC RBC Hgb Hct MCV MCH MCHC RDW Plt Count MPV Neut # (Auto) Lymph # (Auto) [place] # (Auto) Eos # (Auto) Baso # (Auto) Absolute Nucleated RBC Nucleated RBC % Sodium Potassium Chloride Carbon Dioxide Anion Gap BUN Creatinine Estimated GFR (MDRD) Glucose Glycated Hemoglobin 8.3 H Estim Average Glucose 192 H Lactic Acid Calcium Total Bilirubin AST ALT Alkaline Phosphatase Total Protein Albumin Globulin Albumin/Globulin Ratio Lipase Urine Color YELLOW Urine Clarity CLOUDY Urine pH 5.5 Ur Specific [place] 1.020 Urine Protein 100 H Urine Glucose (UA) NEGATIVE Urine Ketones NEGATIVE Urine Occult Blood MODERATE H Urine Nitrite NEGATIVE Urine Bilirubin NEGATIVE Urine Urobilinogen 0.2 (NORMAL) Ur Leukocyte Esterase MODERATE H Urine RBC 6-10 H Urine WBC >25 H Urine WBC Clumps PRESENT Ur Squamous Epith Cells NONE SEEN Urine Bacteria Many H Ur Microscopic Review INDICATED Urine Culture Comments INDICATED - Rads (name of study) cxr Radiology: Prelim report reviewed, EMP read contemporaneously, See rad report (Question consolidation with air bronchogram formation at the lung bases. Recommendation: Unless a clinical picture regarding pneumonia is clear, recommend formal PA and lateral radiographs for clarification given the above suspicion. ) 2 view cxr Radiology: Prelim report reviewed, EMP read contemporaneously, See rad report (No acute cardiopulmonary process. ) PD MEDICAL DECISION MAKING - ED course Complexity details: reviewed old records, reviewed results, re-evaluated patient, considered differential, d/w patient, d/w family, d/w senior erp consultant ED course: 73-year-old female with stage IV metastatic breast cancer on palliative care. She has a UTI and fever. Elevated lactate. Appears to have urosepsis. Given IV fluids, antibiotics. Blood cultures drawn. Discussed the case with Dr. Jaeger, hospitalist who accepts. This document was made in part using voice recognition software. While efforts are made to proofread this document, sound alike and grammatical errors may occur. Departure - Departure Disposition: 66 [facility] DC/Xfer Clinical Impression: UTI (urinary tract infection) Qualifiers: Urinary tract infection type: acute pyelonephritis Qualified Code(s): N10 - Acute pyelonephritis Sepsis Qualifiers: Sepsis type: sepsis due to unspecified organism Qualified Code(s): A41.9 - Sepsis, unspecified organism Breast cancer metastasized to bone Qualifiers: Laterality: unspecified laterality Qualified Code(s): C50.919 - Malignant neoplasm of unspecified site of unspecified female breast Condition: Stable Discharge Date/Time: 05/23/19 18:15
[2019-05-23 15:13] LABS: BILIRUBIN,TOTAL 0.8 mg/dL (0.2-1.0); CALCIUM 9.7 mg/dL (8.5-10.3); CREATININE 0.8 mg/dL (0.4-1.0); TOTAL PROTEIN 6.1 g/dL (6.7-8.2)
[2019-05-23] MEDS ORDERED: SODIUM CHLORIDE 0.9% 1,000 ML IV ONE ×4 (15:28→16:20)
--- NOTE | 2019-05-23 15:50 | XRAY Report ---
Reason: fever Procedure Date: 05/23/2019 Accession Number: [id number] / [id number] Procedure: XR - Chest 1 View X-Ray CPT Code: 53896 FULL RESULT: EXAM: CHEST RADIOGRAPHY EXAM DATE: 05/23/2019 03:37 PM. CLINICAL HISTORY: Fever. COMPARISON: CHEST 2 VIEW 12/02/2017 5:03 PM. TECHNIQUE: 1 view. FINDINGS: Lungs/Pleura: Interval development of air bronchograms in the retrocardiac medial right lung base and medial left lung base, not well evaluated on AP view only technique. No pleural effusion. No pneumothorax. Mediastinum: Within exam limitations, the cardiomediastinal contour is normal. Other: Right subclavian port terminates with tip in the region of the superior cavoatrial junction. IMPRESSION: Question consolidation with air bronchogram formation at the lung bases. Recommendation: Unless a clinical picture regarding pneumonia is clear, recommend formal PA and lateral radiographs for clarification given the above suspicion. [facility]
[2019-05-23 16:12] LABS: BILIRUBIN,URINE NEGATIVE (NEGATIVE); CLARITY,URINE CLOUDY (CLEAR); GLUCOSE, URINE (UA) NEGATIVE (NEGATIVE); KETONES,URINE (UA) NEGATIVE (NEGATIVE); LEUKOCYTE ESTERASE, URINE MODERATE (NEGATIVE); NITRITE,URINE NEGATIVE (NEGATIVE); OCCULT BLOOD,URINE MODERATE (NEGATIVE); PH,URINE 5.5 PH (5.0-7.5); PROTEIN,URINE 100 mg/dL (NEGATIVE); UROBILINOGEN,URINE 0.2 (NORMAL) E.U./dL (NORMAL)
[2019-05-23] MEDS ORDERED: cefTRIAXone 1 GM VIAL IVP STA (16:21)
[2019-05-23 16:23] LABS: WBC CLUMPS,URINE PRESENT
[2019-05-23 16:24] LABS: BACTERIA,URINE Many /HPF (None Seen); SQUAMOUS EPITHELIAL CELL,UR NONE SEEN (<= Few)
[2019-05-23] MEDS ORDERED: ACETAMINOPHEN 325 MG TABLET PO PRN ×2 (16:43→21:11)
[2019-05-23] MEDS ORDERED: HYDROmorphone 1 MG/ML CARPUJECT IVP STA (16:54)
[2019-05-23] MEDS ORDERED: AZITHROMYCIN INJ 500 MG in SODIUM CHLORIDE 0.9% 250 ML IV SCH (17:00)
[2019-05-23] MEDS ORDERED: ONDANSETRON 4 MG/2 ML VIAL IVP STA (17:02)
[2019-05-23] MEDS ORDERED: SCOPOLAMINE PATCH TOP PRN (17:04)
[2019-05-23] MEDS ORDERED: METHOCARBAMOL 500 MG TABLET PO PRN (17:04)
[2019-05-23] MEDS ORDERED: INSULIN ASPART 300 UNIT/3 ML PEN SUBQ ONE (17:10)
[2019-05-23] MEDS ORDERED: ALBUTEROL NEB 2.5 MG/3 ML INH PRN (17:13)
[2019-05-23 17:34] LABS: HB2 TOTAL 12.7 g/dL; HEMOGLOBIN A1C 0.85 g/dL; HEMOGLOBIN A1C % 8.3 % (4.6-6.2)
--- NOTE | 2019-05-23 17:53 | HISTORY & PHYSICAL EXAMINATION ---
Chief Complaint - Chief Complaint Chief Complaint: fever with N/V History of Present Illness - History of Present Illness HPI Comment/Other: Ana Pendleton is a morbidly obese 71-year old white female with a past medical history of ashtma, obese, diabetes mellitus type 2, breast cancer stage 4 with mets to the bone, for which she is on palliative chemotherapy through the [facility], stable aortic stenosis, and frequent UTIs, osteoporosis, who present ER complain of fever since yesterday with nausea, and vomiting. she report she had fever today at home with 104 degree. she denies cough, wheezing, shortness of breath, chest pain. Then she report she had once of nausea and vomiting. She denies abdominal pain, dysuria or hematuria. UA analysis reveal pt has positive UTI. two view of CXR indicate pt have no pneumonia. Lab test reveals pt has hype rglycemia at glucose level 293, elevated lactic acid level at 2.5 and slight elevated liver enzyme. pt is afebrile and hemodynamic stable now in ER. pt is admitted for above medical reason. 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: reports: Breast cancer Psych: reports: None Musculoskeletal: reports: Osteoarthritis, Osteoporosis, Osteopenia, Fatigue, Chronic back pain Derm: reports: None MRSA Hx?: No - Past Surgical History /SALES AND CUSTOMER RELATIONS REP: reports: Mastectomy - POLST Patient has POLST: Yes Meds/Allgy - Home Medications Home Medications: Ambulatory Orders Medication Instructions Recorded Confirmed Carvedilol 6.25 mg PO BID 06/13/13 05/23/19 Insulin Glargine,Hum.rec.anlog 45 unit SQ QPM 05/13/14 05/23/19 [Lantus] Insulin Aspart [Novolog] 10 units SQ BIDWM MDD sliding scale 02/17/15 05/23/19 Ondansetron HCl [Zofran] 4 - 8 mg PO Q6H PRN 10/01/15 05/23/19 Albuterol Sulfate [Proair 2 puffs INH Q4H PRN 12/03/17 05/23/19 Respiclick] Fluticasone/Vilanterol [Breo 1 puffs INH DAILY PRN MDD 12/03/17 05/14/19 Ellipta 200-25 Mcg INH] exacerbation amLODIPine [Norvasc] 5 mg PO DAILY #30 tablet 12/06/17 05/23/19 Methocarbamol 1,000 mg PO Q8HR PRN MDD titrating 02/13/18 05/23/19 down Omeprazole 40 mg PO QDAC 04/20/18 05/23/19 Acetaminophen [Tylenol Extra 1,000 mg PO Q8H PRN 03/19/19 05/23/19 Strength] Calcium Carbonate [Calcium] 500 mg PO DAILY 03/19/19 05/23/19 Cholecalciferol (Vitamin D3) 6,000 unit PO DAILY 03/19/19 05/23/19 [Vitamin D3] Cyclophosphamide 50 mg PO DAILY 03/19/19 05/23/19 Furosemide 40 mg PO DAILY 03/19/19 05/23/19 Hydrocodone/Acetaminophen [[place] 1 tab PO Q6HR PRN 03/19/19 05/23/19 5-325 Tablet] Methotrexate 2.5 mg PO .BID TH/Tue03/19/19 05/23/19 Scopolamine 1 patch TD Q3D PRN 03/19/19 05/23/19 Meloxicam 7.5 mg PO BID 03/21/19 05/23/19 Gabapentin [Neurontin] 1,200 mg PO TID 05/23/19 05/23/19 Insulin Aspart [Novolog] 1 - 3 unit SUBQ .SLIDINGSCALE 05/23/19 05/23/19 - Allergies Allergies/Adverse Reactions: Allergies Allergy/AdvReac Type Severity Reaction Status Date / Time Latex, Natural Rubber Allergy Mild Itching Verified 05/23/19 14:29 erythromycin base AdvReac Severe Itching Verified 05/23/19 14:29 [Erythromycin Base] ketamine AdvReac Severe Hallucinati Verified 05/23/19 14:29 ons codeine [Codeine] AdvReac Anxiety Verified 05/23/19 14:29 oxycodone AdvReac Nausea Verified 05/23/19 14:29 Review of Systems - Constitutional Constitutional: reports: Fatigue, Fever, Chills, Weakness. denies: Malaise, Poor appetite, Diaphoresis, Night sweats, Weight gain, Weight loss - Eyes Eyes: denies: Pain, Irritation, Amaurosis, Blurred vision, Spots in vision, Field loss, Vision loss, Dipolpia - Ears, Nose & Throat Ears, Nose & Throat: denies: Ear pain, Hearing loss, Hearing aids, Tinnitus, Vertigo, Nasal pain, Nasal discharge, Nosebleeds, Nasal obstruction, Nasal congestion, Postnasal drainage, Dentures, Sore throat, Hoarseness, Mouth lesions, Bleeding gums - Cardiovascular Cariovascular: denies: Irregular heart rate, Palpitations, Chest pain, Edema, Lightheadedness, Syncope, Exertional dyspnea, Decr. exercise tolerance - Respiratory Respiratory: denies: Cough, Sputum production, Wheezing, Snoring, Hemoptysis, Orthopnea, SOB at rest, SOB with exertion - Gastrointestinal Gastrointestinal: reports: Nausea, Vomiting. denies: Abdominal pain, Abdominal distention, Constipation, Diarrhea, Change in bowel habits, Rectal bleeding, Black stools, Bloody stools, Bile emesis, Jesus Alberto blood emesis, Coffee grounds emesis, Reflux/heartburn - Genitourinary Genitourinary: denies: Dysuria, Frequency, Urgency, Hematuria, Incontinence, Flank pain, Nocturia, Urethral discharge - Musculoskeletal Musculoskeletal: denies: Muscle pain, Back pain, Muscle aches, Stiffness, Limited range of motion, Muscle weakness, Gout, Joint pain - Integumentary Integumentary: denies: Rash, Pruritis, Lesions, Dryness, Lumps, Acne, Pigment changes, Nail changes - Neurological Neurological: denies: General weakness, Focal weakness, Headache, Dizziness, Numbness, Memory problems, Pre-existing deficit, Abnormal gait, Seizures, In coordination, Slurred speech - Psychiatric Psychiatric: denies: Depression, Anxiety, Suicidal, Delusions, Hallucinations, Homicidal - Endocrine Endocrine: denies: Polyuria, Polydypsia, Polyphagia, Intolerance to cold - Hematologic/Lymphatic Hematologic/Lymphatic: denies: Anemia, Bruising, Petechiae, Blood clots, Lymphadenopathy, Bleeding tendencies Exam - Vital Signs Reviewed Vital Signs: Yes Vital Signs: Vital Signs x48h Temp Pulse Resp BP Pulse Ox 05/23/19 16:10 65 19 119/56 L 93 05/23/19 14:34 36.6 C 98 20 118/75 97 05/23/19 14:20 36.6 C 98 21 118/61 93 - Physical Exam General Appearance: positive: No acute distress, Alert. negative: Lethargic Eyes Bilateral: positive: Normal inspection, PERRL, No lid inflammation, Conjunctivae nml ENT: positive: ENT inspection nml, Pharynx nml, No signs of dehydration. negative: Purulent nasal drainage, Pharyngeal erythema, Oral lesions Neck: positive: Nml inspection, Thyroid nml, No JVD, Trachea midline. negative: Thyromegaly, Lymphadenopathy (R), Lymphadenopathy (L), Stiff neck, Swelling/bruising, Tracheal deviation Respiratory: positive: Chest non-tender, No respiratory distress, Breath sounds nml. negative: Wheezes, Rales, Rhonchi Cardiovascular: positive: Regular rate & rhythm, No murmur, No gallop. n egative: Irregularly irregular, Extrasystoles, Tachycardia, Bradycardia, JVD present, Systolic murmur, Diastolic murmur Peripheral Pulses: positive: 2+ Abdomen: positive: Non-tender, No organomegaly, Nml bowel sounds, No distention. negative: Tenderness, Guarding, Rebound Back: positive: Nml inspection. negative: CVA tenderness (R), CVA tenderness (L) Skin: positive: Color nml, No rash, Warm, Dry. negative: Cyanosis, Diaphoresis, Pallor Extremities: positive: Non-tender. negative: Calf tenderness, Joint swelling, Thierno's sign/cords Neurologic/Psychiatric: positive: Oriented x3, Sensation nml, Mood/affect nml. negative: Weakness, Sensory loss, Facial droop, Slurred/abnml speech, Depressed mood/affect Conclusion/Plan - Problem List (1) UTI (urinary tract infection) Conclusion/Plan: multiple UTI in prior, but it is not multiple resistance strain bacterial. Today UA reveals UTI, pt report fever, and pt did have fever at ER 102 degree. WBC is normal, BP is normative. treat with Rocephin UA culture is pending, will followup nurse educate pt how to prevent UTI in sedative and obese pt Qualifiers: Urinary tract infection type: acute pyelonephritis Qualified Code(s): N10 - Acute pyelonephritis (2) Fever Conclusion/Plan: pt report she had fever at 104 at home. ER had 102 degree fever but the date did not show at chart. Pt's WBC is normal, BP is normative. CXR in two views did not indicate pneumonia. clinic pt did not present pneumonia, without cough, or SOB or wheezing. Lung sound is unremarkable. Tylenol PRN treat with antibiotic for UTI gently hydration vital monitor (3) Breast cancer metastasized to bone Conclusion/Plan: pt report she had breast cancer over a decade, metastatic to bone in 2007. Now she is palliative radiation treatment on [facility]. we will continue support pt continue followup MAC and her oncologist pain control Qualifiers: Laterality: unspecified laterality Qualified Code(s): C50.919 - Malignant neoplasm of unspecified site of unspecified female breast; C79.51 - Secondary malignant neoplasm of bone (4) Diabetes mellitus with hyperglycemia Conclusion/Plan: her glucose is 293, uncontrolled glucose level. UA did not find ketone. 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 now she is on palliative radiation treatment. pain control nurse support. turn pt on Q2H to prevent skin pressure ulcer Qualifiers: Encounter type: initial encounter Qualified Code(s): M48.50XA - Collapsed vertebra, not elsewhere classified, site unspecified, initial encounter for fracture (6) Osteoporosis Conclusion/Plan: pt has multiple bone fracture plus pathologic fractures. reconcile home meds vital D3 and calcium drugs fall precaution. (7) Obesities, morbid Conclusion/Plan: pt's BMI is 51, advise pt loss of weight, continue support pt (8) History of asthma Conclusion/Plan: pt has hx of asthma with obese. now she is stable, without cough or SOB reconcile of home albuterol PRN, supplement of O2 as needed vital monitor (9) Do not intubate, cardiopulmonary resuscitation (CPR)-only code status Conclusion/Plan: pt request DNR clearly - Lab Results Fish Bones: 05/24/19 05:25 05/24/19 05:25 Core Measures - Anticipated LOS I expect patient to be DC'd or transferred within 96 hours.: Yes - DVT/VTE - Prophylaxis VTE/DVT Device ordered at admit?: Yes VTE/DVT Prophylaxis med ordered at admit?: Yes
--- NOTE | 2019-05-23 18:03 | XRAY Report ---
Reason: fever Procedure Date: 05/23/2019 Accession Number: [id number] / [id number] Procedure: XR - Chest 2 View X-Ray CPT Code: 95586 FULL RESULT: EXAM: CHEST RADIOGRAPHY EXAM DATE: 05/23/2019 05:35 PM. CLINICAL HISTORY: Fever. COMPARISON: CHEST 1 VIEW 05/23/2019 3:23 PM. TECHNIQUE: 2 views. FINDINGS: Lungs/Pleura: No focal opacities evident. No pleural effusion. No pneumothorax. Normal volumes. Mediastinum: Heart and mediastinal contours are unremarkable. Other: Right chest port noted. IMPRESSION: No acute cardiopulmonary process. RADIA
[2019-05-23] MEDS ORDERED: INSULIN ASPART 300 UNIT/3 ML PEN SUBQ SCH (21:00)
[2019-05-23] MEDS: ONDANSETRON 4 MG/2 ML VIAL IVP PRN (21:22)
[2019-05-23] MEDS: FAMOTIDINE 20 MG TABLET PO SCH (22:05)
[2019-05-23] MEDS: GABAPENTIN 400 MG CAPSULE PO SCH (22:06)
[2019-05-23] MEDS: CARVEDILOL 12.5 MG TABLET PO SCH (22:06)
[2019-05-23] MEDS: INSULIN GLARGINE 300 UNIT/3 ML PEN SUBQ SCH (22:08)
[2019-05-24] MEDS: SODIUM CHLORIDE FLUSH 0.9% 10 ML SYRINGE IVP SCH ×3 (01:00→16:17)
[2019-05-24] MEDS: SODIUM CHLORIDE 0.9% 1,000 ML IV SCH ×2 (04:40→17:46)
[2019-05-24] MEDS: GABAPENTIN 400 MG CAPSULE PO SCH ×3 (05:26→21:16)
[2019-05-24] MEDS: HYDROcod/ACETAM 5/325 MG TABLET PO PRN ×3 (05:38→20:19)
[2019-05-24] MEDS: ONDANSETRON 4 MG/2 ML VIAL IVP PRN ×3 (05:43→20:15)
[2019-05-24 05:46] LABS: ALBUMIN 2.7 g/dL (3.2-5.5); ALBUMIN/GLOBULIN RATIO 0.9 (1.0-2.2); BILIRUBIN,TOTAL 0.4 mg/dL (0.2-1.0); CALCIUM 8.8 mg/dL (8.5-10.3); CREATININE 0.7 mg/dL (0.4-1.0); MAGNESIUM 1.4 mg/dL (1.7-2.8); TOTAL PROTEIN 5.7 g/dL (6.7-8.2)
[2019-05-24 06:05] LABS: BASOPHILS % (AUTO) 0.5 %; EOSINOPHILS # (AUTO) 0.1 10^3/uL (0.0-0.7); EOSINOPHILS % (AUTO) 1.4 %; HGB - HEMOGLOBIN 11.4 g/dL (12.0-16.0); LYMPHOCYTES # (AUTO) 0.6 10^3/uL (1.5-3.5); MEAN CORPUSCULAR HEMOGLOBIN 31.9 pg (27.0-31.0); MEAN CORPUSCULAR HGB CONC 31.6 g/dL (32.0-36.0); MEAN CORPUSCULAR VOLUME 101.1 fL (81.0-99.0); MONOCYTES # (AUTO) 0.9 10^3/uL (0.0-1.0); MONOCYTES % (AUTO) 13.8 %; NEUTROPHILS # (AUTO) 4.7 10^3/uL (1.5-6.6); NEUTROPHILS % (AUTO) 73.7 %; PLT - PLATELET COUNT 126 10^3/uL (130-450); RED BLOOD COUNT 3.57 10^6/uL (4.20-5.40); RED CELL DISTRIBUTION WIDTH 17.2 % (12.0-15.0); WHITE BLOOD COUNT 6.4 x10^3/uL (4.8-10.8)
[2019-05-24] MEDS ORDERED: MAGNESIUM SULFATE 2 GRAM 2 GM/50 ML BAG IV ONE (08:02)
[2019-05-24] MEDS: INSULIN ASPART 300 UNIT/3 ML PEN SUBQ SCH ×5 (08:51→21:16)
[2019-05-24] MEDS: amLODIPine 5 MG TABLET PO SCH (08:52)
[2019-05-24] MEDS: CALCIUM CARB (OYSTER SHELL) 500 MG TABLET PO SCH (08:52)
[2019-05-24] MEDS: CARVEDILOL 12.5 MG TABLET PO SCH ×2 (08:52→20:18)
[2019-05-24] MEDS: CHOLECALCIFEROL 5,000 UNIT CAPSULE PO SCH (08:52)
[2019-05-24] MEDS: FAMOTIDINE 20 MG TABLET PO SCH ×2 (08:53→20:19)
[2019-05-24] MEDS: ENOXAPARIN 40 MG/0.4 ML SYRINGE SUBQ SCH (08:53)
[2019-05-24] MEDS: MAGNESIUM OXIDE 400 MG TABLET PO SCH (08:53)
[2019-05-24] MEDS: cefTRIAXone 2 GM in SODIUM CHLORIDE 0.9% MINIBAG 100 ML IV SCH (08:54)
[2019-05-24] MEDS ORDERED: cefTRIAXone 1 GM VIAL IVP SCH ×2 (09:00)
[2019-05-24] MEDS: POLYETHYLENE GLYCOL 3350 17 GM PACKET PO SCH (09:05)
[2019-05-24] MEDS: SODIUM CHLORIDE FLUSH 0.9% 10 ML SYRINGE IVP PRN (14:43)
--- NOTE | 2019-05-24 14:48 | PROVIDER PROGRESS NOTE ---
Subjective - Prog Note Date Prog Note Date: 05/24/19 - Subjective Pt reports feeling: Improved Subjective: she report she feel better today. she report she had fever on last night but no fever on today. she denies headache, chest pain. Current Medications - Current Medications Current Medications: Active Medications Acetaminophen (Tylenol) 650 mg PO Q4HR PRN PRN Reason: FEVER > 100.5 F Last Admin: 05/23/19 21:24 Dose: 650 mg Hydrocodone Bitart/Acetaminophen (Carpio 5/325) 1 tab PO Q6HR PRN PRN Reason: PAIN Last Admin: 05/24/19 14:40 Dose: 1 tab Albuterol () 2.5 mg INH RTQ4H PRN PRN Reason: Wheezing Amlodipine Besylate (Norvasc) 5 mg PO DAILY [facility] Last Admin: 05/24/19 08:52 Dose: 5 mg Calcium Carbonate/Glycine (Oysco-500) 500 mg PO DAILY [facility] Last Admin: 05/24/19 08:52 Dose: 500 mg Carvedilol (Coreg) 6.25 mg PO BID [facility] Last Admin: 05/24/19 08:52 Dose: 6.25 mg Cholecalciferol (Vitamin D3) 5,000 unit PO DAILY [facility] Last Admin: 05/24/19 08:52 Dose: 5,000 unit Enoxaparin Sodium (Lovenox) 40 mg SUBQ DAILY [facility] Last Admin: 05/24/19 08:53 Dose: 40 mg Famotidine (Pepcid) 20 mg PO BID [facility] Last Admin: 05/24/19 08:53 Dose: 20 mg Gabapentin (Neurontin) 1,200 mg PO TID [facility] Last Admin: 05/24/19 14:40 Dose: 1,200 mg Sodium Chloride (Normal Saline 0.9%) 1,000 mls @ 85 mls/hr IV .[id number] [facility] Stop: 05/24/19 16:31 Last Admin: 05/24/19 04:40 Dose: 85 mls/hr Ceftriaxone Sodium 2 gm/ (Sodium Chloride) 100 mls @ 200 mls/hr IV DAILY [facility] Last Infusion: 05/24/19 09:24 Dose: Infused Insulin Aspart (Novolog) 3 - 11 unit SUBQ 0800,1200,1700,2100 JOHN; Protocol Last Admin: 05/24/19 11:45 Dose: 5 unit Insulin Glargine (Lantus Solostar) 45 unit SUBQ QPM [facility] Last Admin: 05/23/19 22:08 Dose: 45 unit Magnesium Oxide (Mag Ox) 400 mg PO DAILYWM [facility] Last Admin: 05/24/19 08:53 Dose: 400 mg Methocarbamol (Robaxin) 1,000 mg PO Q8HR PRN PRN Reason: Spasms Last Admin: 05/24/19 09:05 Dose: 1,000 mg Ondansetron HCl (Zofran Inj) 4 mg IVP Q6HR PRN PRN Reason: Nausea / Vomiting Last Admin: 05/24/19 14:40 Dose: 4 mg Polyethylene Glycol (Miralax) 17 gm PO DAILY [facility] Last Admin: 05/24/19 09:05 Dose: Not Given Scopolamine HBr (Transderm-Scop) 1 patch TOP Q3D PRN PRN Reason: Nausea / Vomiting Sodium Chloride (Normal Saline Flush 0.9%) 10 ml IVP PRN PRN PRN Reason: NEEDED PER PROVIDER ORDERS Last Admin: 05/24/19 14:43 Dose: 10 ml Sodium Chloride (Normal Saline Flush 0.9%) 10 ml IVP 0100,0900,1700 [facility] Last Admin: 05/24/19 05:43 Dose: 10 ml Carvedilol 6.25 mg PO BID 06/13/13 Insulin Glargine,Hum.rec.anlog [Lantus] 45 unit SQ QPM 05/13/14 Insulin Aspart [Novolog] 10 units SQ TIDWM 02/17/15 Ondansetron HCl [Zofran] 4 - 8 mg PO Q6H PRN 10/01/15 Albuterol Sulfate [Proair Respiclick] 2 puffs INH Q4H PRN 12/03/17 Fluticasone/Vilanterol [Breo Ellipta 200-25 Mcg INH] 1 puffs INH DAILY PRN MDD exacerbation 12/03/17 Methocarbamol 1,000 mg PO Q8HR PRN MDD titrating down 02/13/18 Omeprazole 40 mg PO QDAC 04/20/18 Acetaminophen [Tylenol Extra Strength] 1,000 mg PO Q8H PRN 03/19/19 Calcium Carbonate [Calcium] 500 mg PO DAILY 03/19/19 Cholecalciferol (Vitamin D3) [Vitamin D3] 6,000 unit PO DAILY 03/19/19 Cyclophosphamide 50 mg PO DAILY 03/19/19 Furosemide 40 mg PO DAILY 03/19/19 Hydrocodone/Acetaminophen [Carpio 5-325 Tablet] 1 tab PO Q6HR PRN 03/19/19 Methotrexate 2.5 mg PO .BID THURS/Tue03/19/19 Scopolamine 1 patch TD Q3D PRN 03/19/19 Meloxicam 7.5 mg PO BID 03/21/19 Gabapentin [Neurontin] 1,200 mg PO TID 05/23/19 Insulin Aspart [Novolog] 1 - 3 unit SUBQ .SLIDINGSCALE 05/23/19 Objective - Vital Signs/Intake & Output Reviewed Vital Signs: Yes Vital Signs: Vital Signs x48h Temp Pulse Pulse Resp BP BP Pulse Ox 05/24/19 11:53 37.5 C 92 18 111/47 L 92 05/24/19 10:50 92 111/47 L 05/24/19 08:00 37.2 C 90 18 118/47 L 96 Intake & Output: Intake & Output 05/21/19 05/22/19 05/23/19 05/24/19 23:59 23:59 23:59 23:59 Intake Total 1465.0 3635 Output Total 460 1125 Balance 1005.0 2510 - Objective General Appearance: positive: No acute distress, Alert. negative: Lethargic Eyes Bilateral: positive: Normal inspection, PERRL, No lid inflammation, Conjunctivae nml ENT: positive: ENT inspection nml, Pharynx nml, No signs of dehydration. negative: Purulent nasal drainage, Pharyngeal erythema, Oral lesions Neck: positive: Nml inspection, Thyroid nml, No JVD, Trachea midline. negative: Thyromegaly, Lymphadenopathy (R), Lymphadenopathy (L), Stiff neck, Swelling/bruising, Tracheal deviation Respiratory: positive: Chest non-tender, No respiratory distress, Breath sounds nml. negative: Wheezes, Rales, Rhonchi Cardiovascular: positive: Regular rate & rhythm, No murmur, No gallop. negative: Irregularly irregular, Extrasystoles, Tachycardia, Bradycardia, JVD present, Systolic murmur, Diastolic murmur Peripheral Pulses: 2+ Radial (R), 2+ Radial (L), 2+ Dorsalis pedis (R), 2+ Dorsalis pedis (L) Abdomen: positive: Non-tender, No organomegaly, Nml bowel sounds, No distention. negative: Tenderness, Guarding, Rebound Back: positive: Nml inspection. negative: CVA tenderness (R), CVA tenderness (L) Skin: positive: Color nml, No rash, Warm, Dry. negative: Cyanosis, Diaphoresis, Pallor Extremities: positive: Non-tender, Nml appearance. negative: Calf tenderness, Joint swelling, Thierno's sign/cords Neurologic/Psychiatric: positive: Oriented x3, Sensation nml, Mood/affect nml. negative: Weakness, Sensory loss, Facial droop, Slurred/abnml speech, Depressed mood/affect - Lab Results Fish Bones: 05/24/19 05:25 05/24/19 05:25 Other Labs: Lab Results x24hrs 05/24/19 05/24/19 05/23/19 Range/Units 05:25 05:25 22:10 WBC 6.4 (4.8-10.8) x10^3/uL RBC 3.57 L (4.20-5.40) 10^6/uL Hgb 11.4 L (12.0-16.0) g/dL Hct 36.1 L (37.0-47.0) % MCV 101.1 H (81.0-99.0) fL MCH 31.9 H (27.0-31.0) pg MCHC 31.6 L (32.0-36.0) g/dL RDW 17.2 H (12.0-15.0) % Plt Count 126 L (130-450) 10^3/uL MPV 10.0 (7.9-10.8) fL Neut # (Auto) 4.7 (1.5-6.6) 10^3/uL Lymph # (Auto) 0.6 L (1.5-3.5) 10^3/uL Kendall # (Auto) 0.9 (0.0-1.0) 10^3/uL Eos # (Auto) 0.1 (0.0-0.7) 10^3/uL Baso # (Auto) 0.0 (0.0-0.1) 10^3/uL Absolute Nucleated RBC 0.00 x10^3/uL Nucleated RBC % 0.0 /100WBC Sodium 136 (135-145) mmol/L Potassium 4.5 (3.5-5.0) mmol/L Chloride 98 L (101-111) mmol/L Carbon Dioxide 27 (21-32) mmol/L Anion Gap 11.0 (6-13) BUN 18 (6-20) mg/dL Creatinine 0.7 (0.4-1.0) mg/dL Estimated GFR (MDRD) 82 L (>89) Glucose 202 H (70-100) mg/dL Glycated Hemoglobin (4.6-6.2) % Estim Average Glucose (70-100) Lactic Acid 1.2 (0.5-2.2) mmol/L Calcium 8.8 (8.5-10.3) mg/dL Magnesium 1.4 L (1.7-2.8) mg/dL Total Bilirubin 0.4 (0.2-1.0) mg/dL AST 38 (10-42) IU/L ALT 29 (10-60) IU/L Alkaline Phosphatase 93 (42-121) IU/L Total Protein 5.7 L (6.7-8.2) g/dL Albumin 2.7 L (3.2-5.5) g/dL Globulin 3.0 (2.1-4.2) g/dL Albumin/Globulin Ratio 0.9 L (1.0-2.2) Lipase (22-51) U/L Urine Color Urine Clarity (CLEAR) Urine pH (5.0-7.5) PH Ur Specific Sunray (1.002-1.030) Urine Protein (NEGATIVE) mg/dL Urine Glucose (UA) (NEGATIVE) mg/dL Urine Ketones (NEGATIVE) mg/dL Urine Occult Blood (NEGATIVE) Urine Nitrite (NEGATIVE) Urine Bilirubin (NEGATIVE) Urine Urobilinogen (NORMAL) E.U./dL Ur Leukocyte Esterase (NEGATIVE) Urine RBC (0-5) /HPF Urine WBC (0-5) /HPF Urine WBC Clumps Ur Squamous Epith Cells (<= Few) Urine Bacteria (None Seen) /HPF Ur Microscopic Review Urine Culture Comments 05/23/19 05/23/19 05/23/19 Range/Units 15:50 14:47 14:47 WBC (4.8-10.8) x10^3/uL RBC (4.20-5.40) 10^6/uL Hgb (12.0-16.0) g/dL Hct (37.0-47.0) % MCV (81.0-99.0) fL MCH (27.0-31.0) pg MCHC (32.0-36.0) g/dL RDW (12.0-15.0) % Plt Count (130-450) 10^3/uL MPV (7.9-10.8) fL Neut # (Auto) (1.5-6.6) 10^3/uL Lymph # (Auto) (1.5-3.5) 10^3/uL Kendall # (Auto) (0.0-1.0) 10^3/uL Eos # (Auto) (0.0-0.7) 10^3/uL Baso # (Auto) (0.0-0.1) 10^3/uL Absolute Nucleated RBC x10^3/uL Nucleated RBC % /100WBC Sodium (135-145) mmol/L Potassium (3.5-5.0) mmol/L Chloride (101-111) mmol/L Carbon Dioxide (21-32) mmol/L Anion Gap (6-13) BUN (6-20) mg/dL Creatinine (0.4-1.0) mg/dL Estimated GFR (MDRD) (>89) Glucose (70-100) mg/dL Glycated Hemoglobin 8.3 H (4.6-6.2) % Estim Average Glucose 192 H (70-100) Lactic Acid 2.5 H (0.5-2.2) mmol/L Calcium (8.5-10.3) mg/dL Magnesium (1.7-2.8) mg/dL Total Bilirubin (0.2-1.0) mg/dL AST (10-42) IU/L ALT (10-60) IU/L Alkaline Phosphatase (42-121) IU/L Total Protein (6.7-8.2) g/dL Albumin (3.2-5.5) g/dL Globulin (2.1-4.2) g/dL Albumin/Globulin Ratio (1.0-2.2) Lipase (22-51) U/L Urine Color YELLOW Urine Clarity CLOUDY (CLEAR) Urine pH 5.5 (5.0-7.5) PH Ur Specific Sunray 1.020 (1.002-1.030) Urine Protein 100 H (NEGATIVE) mg/dL Urine Glucose (UA) NEGATIVE (NEGATIVE) mg/dL Urine Ketones NEGATIVE (NEGATIVE) mg/dL Urine Occult Blood MODERATE H (NEGATIVE) Urine Nitrite NEGATIVE (NEGATIVE) Urine Bilirubin NEGATIVE (NEGATIVE) Urine Urobilinogen 0.2 (NORMAL) (NORMAL) E.U./dL Ur Leukocyte Esterase MODERATE H (NEGATIVE) Urine RBC 6-10 H (0-5) /HPF Urine WBC >25 H (0-5) /HPF Urine WBC Clumps PRESENT Ur Squamous Epith Cells NONE SEEN (<= Few) Urine Bacteria Many H (None Seen) /HPF Ur Microscopic Review INDICATED Urine Culture Comments INDICATED 05/23/19 05/23/19 Range/Units 14:47 14:47 WBC 5.6 (4.8-10.8) x10^3/uL RBC 3.90 L (4.20-5.40) 10^6/uL Hgb 12.0 (12.0-16.0) g/dL Hct 38.6 (37.0-47.0) % MCV 99.0 (81.0-99.0) fL MCH 30.8 (27.0-31.0) pg MCHC 31.1 L (32.0-36.0) g/dL RDW 16.9 H (12.0-15.0) % Plt Count 133 (130-450) 10^3/uL MPV 9.4 (7.9-10.8) fL Neut # (Auto) 4.4 (1.5-6.6) 10^3/uL Lymph # (Auto) 0.4 L (1.5-3.5) 10^3/uL Kendall # (Auto) 0.6 (0.0-1.0) 10^3/uL Eos # (Auto) 0.1 (0.0-0.7) 10^3/uL Baso # (Auto) 0.0 (0.0-0.1) 10^3/uL Absolute Nucleated RBC 0.00 x10^3/uL Nucleated RBC % 0.0 /100WBC Sodium 136 (135-145) mmol/L Potassium 4.6 (3.5-5.0) mmol/L Chloride 95 L (101-111) mmol/L Carbon Dioxide 29 (21-32) mmol/L Anion Gap 12.0 (6-13) BUN 17 (6-20) mg/dL Creatinine 0.8 (0.4-1.0) mg/dL Estimated GFR (MDRD) 71 L (>89) Glucose 293 H (70-100) mg/dL Glycated Hemoglobin (4.6-6.2) % Estim Average Glucose (70-100) Lactic Acid (0.5-2.2) mmol/L Calcium 9.7 (8.5-10.3) mg/dL Magnesium (1.7-2.8) mg/dL Total Bilirubin 0.8 (0.2-1.0) mg/dL AST 47 H (10-42) IU/L ALT 39 (10-60) IU/L Alkaline Phosphatase 131 H (42-121) IU/L Total Protein 6.1 L (6.7-8.2) g/dL Albumin 3.0 L (3.2-5.5) g/dL Globulin 3.1 (2.1-4.2) g/dL Albumin/Globulin Ratio 1.0 (1.0-2.2) Lipase 40 (22-51) U/L Urine Color Urine Clarity (CLEAR) Urine pH (5.0-7.5) PH Ur Specific Sunray (1.002-1.030) Urine Protein (NEGATIVE) mg/dL Urine Glucose (UA) (NEGATIVE) mg/dL Urine Ketones (NEGATIVE) mg/dL Urine Occult Blood (NEGATIVE) Urine Nitrite (NEGATIVE) Urine Bilirubin (NEGATIVE) Urine Urobilinogen (NORMAL) E.U./dL Ur Leukocyte Esterase (NEGATIVE) Urine RBC (0-5) /HPF Urine WBC (0-5) /HPF Urine WBC Clumps Ur Squamous Epith Cells (<= Few) Urine Bacteria (None Seen) /HPF Ur Microscopic Review Urine Culture Comments ABX Reporting Has patient been on IV antibiotics over the past 48 hours?: Yes Sepsis Event Note (H) - Evaluation Current Stage of Sepsis: Sepsis Possible source of Sepsis: positive: Genitourinary - Sepsis Criteria Sepsis Criteria: Recorded Temperature greater than 38.3C or Less than 36C, Recorded Heart Rate greater than 90 bpm Assessment/Plan - Problem List (1) UTI (urinary tract infection) Impression: 05/24. UA culture reveals gram negative Dio is found, sensitivity study is pending continue Rocephin multiple UTI in prior, but it is not multiple resistance strain bacterial. Today UA reveals UTI, pt report fever, and pt did have fever at ER 102 degree. WBC is normal, BP is normative. treat with Rocephin UA culture is pending, will followup nurse educate pt how to prevent UTI in sedative and obese pt Qualifiers: Urinary tract infection type: acute pyelonephritis Qualified Code(s): N10 - Acute pyelonephritis (2) Fever Conclusion/Plan: 05/24 pt still had fever on last night, it appear from pt's UTI. blood culture is negative preliminary Tylenol PRN treat with antibiotic for UTI gently hydration vital monitor pt report she had fever at 104 at home. ER had 102 degree fever but the date did not show at chart. Pt's WBC is normal, BP is normative. CXR in two views did not indicate pneumonia. clinic pt did not present pneumonia, without cough, or SOB or wheezing. Lung sound is unremarkable. Tylenol PRN treat with antibiotic for UTI gently hydration vital monitor (3) Breast cancer metastasized to bone Conclusion/Plan: pt report she had breast cancer over a decade, metastatic to bone in 2007. Now she is palliative radiation treatment on [facility] [place] clinic. we will continue support pt continue followup MAC and her oncologist pain control (4) Diabetes mellitus with hyperglycemia Conclusion/Plan: 05/24 is better controlled. slide scale is up to high level of insulin coverage her glucose is 293, uncontrolled glucose level. UA did not find ketone. it may contribute to pt's frequent UTI will reconcile Lantus and high level of slide scale, and hypoglycemia protocol for pt, diet with strict control glucose level gently IVF (5) Pathologic compression fracture of spine Conclusion/Plan: pt report she had pathologic spine and hip compression fracture from her metastatic breast cancer. now she is on palliative radiation treatment. pain control nurse support. turn pt on Q2H to prevent skin pressure ulcer Qualifiers: Encounter type: initial encounter Qualified Code(s): M48.50XA - Collapsed vertebra, not elsewhere classified, site unspecified, initial encounter for fracture (6) Osteoporosis Conclusion/Plan: pt has multiple bone fracture plus pathologic fractures. reconcile home meds vital D3 and calcium drugs fall precaution. (7) Obesities, morbid Conclusion/Plan: pt's BMI is 51, advise pt loss of weight, continue support pt (8) History of asthma Conclusion/Plan: pt has hx of asthma with obese. 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
[2019-05-24] MEDS: METHADONE 5 MG TABLET PO SCH (15:44)
[2019-05-24] MEDS ORDERED: INSULIN ASPART 300 UNIT/3 ML PEN SUBQ SCH (17:00)
--- NOTE | 2019-05-24 18:18 | CONSULTATION NOTE ---
Palliative Care Follow Up - Referral Referring Provider: Rick TOSCANO Time of Visit: [id number] Referral setting: Hospitalized patient Referral Reason: Pain of neoplastic origin/Met Breast CA/UTI - Information Sources Records reviewed: Previous records reviewed History/Review of Systems obtained from: Patient, Family ( present) Exam limitations: No limitations - History of Present Illness Update Brief HPI Update: This is a 73-year-old woman who has metastatic breast cancer with extensive bony mets. She has a very complicated history regarding her acute and escalating pain, she was in December hospitalized, after she was found to have an L4 burst fracture and did receive an L4 kyphoplasty. Unfortunately she continued to have a series of unfortunate events, which include multiple hospitalizations and SNF stays, and finally returned home in March. Patient is currently on oral chemotherapy of Cytoxan and methotrexate, she has had a recent port placed, waiting in the future for initiation of further chemotherapy. Patient is actually been extensively treated since her initial diagnosis in 2015. Patient has recently had a bone scan, she has had escalating pain now more focused on her left hip, top of the iliac crest, reports left posterior rib area as well as right area. She has had extensive radiation, and what has been of benefit is that she does get relief. Patient is complicated for her pain relief in the context she has poor opioid tolerance, gets nausea and vomiting, she has been trialed on fentanyl, long-acting medications, and most recently have been trying to titrate up her Vicodin to improve her opioid tolerance. She gets fairly nauseated, and some intermittent confusion. We have mostly been managing her pain with the gabapentin on 1200 mg 3 times daily, recently have been titrating back on her methocarbamol down to 500 mg 3 times daily from 1000 mg 3 times daily. We had initiated methadone 2.5 mg this week, with the goal to use this is her base long acting, and do a very slow taper. She is also to be scheduled for radiation in the next couple weeks. Patient does have a long history of UTIs, this is been both related to her treatment ablating her estrogen. As well as difficulty related to her morbid obesity. She had thought she was positive prior to 17 May, but was told her urine specimen was negative. She actually did go visit family this last weeken d, which she found quite positive and of comfort to her. Patient does understand the seriousness of her illness, she does feel like she is starting to decline, but is hopeful to get her pain under control. She reports the threshold for transitioning to end-of-life, would be her uncontrolled pain, or if she were no longer able to ambulate and continue with treatment. Patient also has known aortic stenosis, CHF, diabetes type 2, asthma, morbid obesity, Social History - Living Situation Living arrangement: At home Living Situation: With spouse/s.o. Support System: Patient lives at home in a trilevel, she is recently just completed around with home health services including therapies. They have a exit booth agent slip to get her up the stairs. Her does assist her, though it is any increased difficulty getting her in and out of bed, his health is also quite fragile. Tiana reyes lives at home with her , who himself has health issues. She is somewhat the matriarch of her family, and there are multiple stressors and financial stressors with her family. Her barron is important to her, and she is supported on a regular basis by the palliative care database marketing analyst. Medications/Allergies - Medications Active Medication List: Active Medications Acetaminophen (Tylenol) 650 mg PO Q4HR PRN PRN Reason: FEVER > 100.5 F Last Admin: 05/23/19 21:24 Dose: 650 mg Hydrocodone Bitart/Acetaminophen (Pearl 5/325) 1 tab PO Q4HR PRN PRN Reason: PAIN Albuterol () 2.5 mg INH RTQ4H PRN PRN Reason: Wheezing Amlodipine Besylate (Norvasc) 5 mg PO DAILY [facility] Last Admin: 05/24/19 08:52 Dose: 5 mg Calcium Carbonate/Glycine (Oysco-500) 500 mg PO DAILY [facility] Last Admin: 05/24/19 08:52 Dose: 500 mg Carvedilol (Coreg) 6.25 mg PO BID [facility] Last Admin: 05/24/19 08:52 Dose: 6.25 mg Cholecalciferol (Vitamin D3) 5,000 unit PO DAILY [facility] Last Admin: 05/24/19 08:52 Dose: 5,000 unit Enoxaparin Sodium (Lovenox) 40 mg SUBQ DAILY [facility] Last Admin: 05/24/19 08:53 Dose: 40 mg Famotidine (Pepcid) 20 mg PO BID [facility] Last Admin: 05/24/19 08:53 Dose: 20 mg Gabapentin (Neurontin) 1,200 mg PO TID [facility] Last Admin: 05/24/19 14:40 Dose: 1,200 mg Ceftriaxone Sodium 2 gm/ (Sodium Chloride) 100 mls @ 200 mls/hr IV DAILY [facility] Last Infusion: 05/24/19 09:24 Dose: Infused Insulin Aspart (Novolog) 7 unit SUBQ TIDWM [facility] Last Admin: 05/24/19 17:46 Dose: 7 unit Insulin Aspart (Novolog) 1 - 5 unit SUBQ 0800,1200,1700,2100 [facility]; Protocol Last Admin: 05/24/19 16:33 Dose: Not Given Insulin Glargine (Lantus Solostar) 45 unit SUBQ QPM [facility] Last Admin: 05/23/19 22:08 Dose: 45 unit Magnesium Oxide (Mag Ox) 400 mg PO DAILYWM [facility] Last Admin: 05/24/19 08:53 Dose: 400 mg Methadone HCl () 2.5 mg PO DAILY [facility] Last Admin: 05/24/19 15:44 Dose: 2.5 mg Methocarbamol (Robaxin) 1,000 mg PO Q8HR PRN PRN Reason: Spasms Last Admin: 05/24/19 09:05 Dose: 1,000 mg Ondansetron HCl (Zofran Inj) 4 mg IVP Q6HR PRN PRN Reason: Nausea / Vomiting Last Admin: 05/24/19 14:40 Dose: 4 mg Polyethylene Glycol (Miralax) 17 gm PO DAILY [facility] Last Admin: 05/24/19 09:05 Dose: Not Given Scopolamine HBr (Transderm-Scop) 1 patch TOP Q3D PRN PRN Reason: Nausea / Vomiting Sodium Chloride (Normal Saline Flush 0.9%) 10 ml IVP PRN PRN PRN Reason: NEEDED PER PROVIDER ORDERS Last Admin: 05/24/19 14:43 Dose: 10 ml Sodium Chloride (Normal Saline Flush 0.9%) 10 ml IVP 0100,0900,1700 [facility] Last Admin: 05/24/19 16:17 Dose: 10 ml Carvedilol 6.25 mg PO BID 06/13/13 Insulin Glargine,Hum.rec.anlog [Lantus] 45 unit SQ QPM 05/13/14 Insulin Aspart [Novolog] 10 units SQ TIDWM 02/17/15 Ondansetron HCl [Zofran] 4 - 8 mg PO Q6H PRN 10/01/15 Albuterol Sulfate [Proair Respiclick] 2 puffs INH Q4H PRN 12/03/17 Fluticasone/Vilanterol [Breo Ellipta 200-25 Mcg INH] 1 puffs INH DAILY PRN MDD exacerbation 12/03/17 Methocarbamol 1,000 mg PO Q8HR PRN MDD titrating down 02/13/18 Omeprazole 40 mg PO QDAC 04/20/18 Acetaminophen [Tylenol Extra Strength] 1,000 mg PO Q8H PRN 03/19/19 Calcium Carbonate [Calcium] 500 mg PO DAILY 03/19/19 Cholecalciferol (Vitamin D3) [Vitamin D3] 6,000 unit PO DAILY 03/19/19 Cyclophosphamide 50 mg PO DAILY 03/19/19 Furosemide 40 mg PO DAILY 03/19/19 Hydrocodone/Acetaminophen [Pearl 5-325 Tablet] 1 tab PO Q6HR PRN 03/19/19 Methotrexate 2.5 mg PO .BID /Tue03/19/19 Scopolamine 1 patch TD Q3D PRN 03/19/19 Meloxicam 7.5 mg PO BID 03/21/19 Gabapentin [Neurontin] 1,200 mg PO TID 05/23/19 Insulin Aspart [Novolog] 1 - 3 unit SUBQ .SLIDINGSCALE 05/23/19 - Allergies Allergies/Adverse Reactions: Allergies Allergy/AdvReac Type Severity Reaction Status Date / Time Latex, Natural Rubber Allergy Mild Itching Verified 05/23/19 14:29 erythromycin base AdvReac Severe Itching Verified 05/23/19 14:29 [Erythromycin Base] ketamine AdvReac Severe Hallucinati Verified 05/23/19 14:29 ons codeine [Codeine] AdvReac Anxiety Verified 05/23/19 14:29 oxycodone AdvReac Nausea Verified 05/23/19 14:29 Review of Systems - Constitutional Constitutional: reports: Fatigue, Fever, Chills (prior to admit), Weakness - Eyes Eyes: reports: Vision loss, Corrective lenses - Ears, Nose & Throat Ears, Nose & Throat: reports: Dry mouth - Cardiovascular Cardiovascular: reports: Decr. exercise tolerance. denies: Chest pain, Edema - Respiratory Respiratory: reports: SOB with exertion. denies: Cough, SOB at rest - Gastrointestinal Gastrointestinal: reports: Nausea (intermittent with pain medications), Good appetite. denies: Constipation - Genitourinary Genitourinary: reports: Frequency - Musculoskeletal Musculoskeletal: reports: Muscle aches, Stiffness, Limited range of motion, Muscle weakness, Assistive devices - Integumentary Integumentary: reports: Dryness, Hair changes (thinning with chemotherapy), Other (has "recliner" butt; has extra layer of skin/roughened from hx of pressure and decubs) - Neurological Neurological: reports: General weakness, Numbness, Abnormal gait - Psychiatric Psychiatric: reports: Depression, Anxiety - Endocrine Endocrine: reports: Diabetes type 2 - Hematologic/Lymphatic Hematologic/Lymphatic: reports: Recurrent infections (utis) - All Other Systems All Other Systems: reports: Reviewed and negative Physical Exam - Vital Signs Vital Signs: Vital Signs x48h Temp Pulse Pulse Resp BP BP Pulse Ox 05/24/19 15:45 37.0 C 92 16 114/53 L 95 05/24/19 11:53 37.5 C 92 18 111/47 L 92 05/24/19 10:50 92 111/47 L - Physical Exam General Appearance: positive: No acute distress, Alert Eyes Bilateral: positive: Normal inspection ENT: positive: No signs of dehydration, Other (poor dentition) Neck: positive: No JVD, Trachea midline Cardiovascular: positive: Regular rate & rhythm Respiratory: positive: No respiratory distress Abdomen: positive: Soft, Obese Skin: positive: Pallor, Dryness Extremities: positive: No pedal edema Neurologic/Psychiatric: positive: Oriented x3, Mood/affect nml, Weakness Palliative Care - POLST Patient has POLST: Yes POLST Status: DNR, Selective Treatment Pain: Pain worsening, Location (see HPI) Tiredness/Fatigue: Moderate (4-6) Drowsiness/Sedation: Mild (1-3) Nausea: Mild (1-3) Depression: Moderate (4-6) Anxiety: Moderate (4-6) Dyspnea: Mild (1-3) Anorexia: Mild (1-3) Sleep: Sleeps well Constipation: Yes, Opoid induced, Managed Feelings of wellbeing/Perceived Quality of Life: Fair, Acceptable, Worsening Performance Status: Patient does appear somewhat weaker today, she at baseline does need assistance from sitting to standing particularly before bed mobility. We have discussed in the past about a hospital bed to assist with transfers. Patient does have a modified walker, she is able to ambulate short distances, she is mostly limited by her pain with weightbearing. She is quite determined to remain functional in the context of being able to get to the bathroom. Her is still needing to help her now with bathing, sho-care, and most ADLs. - Palliative Care Discussion: Patient continues to try and stay positive, though she does recognize that things are getting a little bit more dicey. She does have a POLST with DNA R and selective treatments. She would continue to receive treatment as long as it is feasible for her to continue to remain somewhat independent, and also if her pain is adequately controlled. Patient has been started supported by both home health in the past, and currently with the palliative care team with database marketing analyst visits and home visits from palliative care Results - Lab Results Lab results reviewed: Yes Fish Bones: 05/24/19 05:25 05/24/19 05:25 Lab and Imaging Results: Lab Results x24hrs 05/24/19 05/24/19 05/23/19 Range/Units 05:25 05:25 22:10 WBC 6.4 (4.8-10.8) x10^3/uL RBC 3.57 L (4.20-5.40) 10^6/uL Hgb 11.4 L (12.0-16.0) g/dL Hct 36.1 L (37.0-47.0) % MCV 101.1 H (81.0-99.0) fL MCH 31.9 H (27.0-31.0) pg MCHC 31.6 L (32.0-36.0) g/dL RDW 17.2 H (12.0-15.0) % Plt Count 126 L (130-450) 10^3/uL MPV 10.0 (7.9-10.8) fL Neut # (Auto) 4.7 (1.5-6.6) 10^3/uL Lymph # (Auto) 0.6 L (1.5-3.5) 10^3/uL Mckinley # (Auto) 0.9 (0.0-1.0) 10^3/uL Eos # (Auto) 0.1 (0.0-0.7) 10^3/uL Baso # (Auto) 0.0 (0.0-0.1) 10^3/uL Absolute Nucleated RBC 0.00 x10^3/uL Nucleated RBC % 0.0 /100WBC Sodium 136 (135-145) mmol/L Potassium 4.5 (3.5-5.0) mmol/L Chloride 98 L (101-111) mmol/L Carbon Dioxide 27 (21-32) mmol/L Anion Gap 11.0 (6-13) BUN 18 (6-20) mg/dL Creatinine 0.7 (0.4-1.0) mg/dL Estimated GFR (MDRD) 82 L (>89) Glucose 202 H (70-100) mg/dL Lactic Acid 1.2 (0.5-2.2) mmol/L Calcium 8.8 (8.5-10.3) mg/dL Magnesium 1.4 L (1.7-2.8) mg/dL Total Bilirubin 0.4 (0.2-1.0) mg/dL AST 38 (10-42) IU/L ALT 29 (10-60) IU/L Alkaline Phosphatase 93 (42-121) IU/L Total Protein 5.7 L (6.7-8.2) g/dL Albumin 2.7 L (3.2-5.5) g/dL Globulin 3.0 (2.1-4.2) g/dL Albumin/Globulin Ratio 0.9 L (1.0-2.2) Impression and Recommendations - Palliative Care Impression: This is a 73-year-old woman with metastatic breast cancer to the bones only, Seems to be a challenge to manage her escalating pain. She is currently receiving oral chemotherapy, but may receive IV chemotherapy in the future. She is awaiting appointments for radiation, she has had good results in the past. She is now acutely hospitalized with sepsis/UTI. She presents with moderate to high symptom burden, and palliative care to continue provide support for pain and symptom management and anticipatory guidance. Recommendations/Counseling Done: 1. Pain of neoplastic origin. Quite hopeful will be a candidate for radiation, referral is been made to [facility] and is awaiting call for scheduling. She has had good response in the past. She is currently managed on her gabapentin 1200 mg 3 times daily, methocarbamol 500 mg every 8 hours, and hydrocodone/acetaminophen using up to about 6 tabs a day. She does use occasional Tylenol for breakthrough pain. We did initiate again we had tried before methadone 2.5 mg, she would like to continue with a slow titration. The goal is to titrate up every 4 to 5 days as she tolerates. Follow-up with hospitalist to continue her current plan. 2. Generalized weakness. Would again recommend considering hospital bed on discharge, discussed whether she would benefit from further home PT. She does have her exercises, most of her benefit is just getting her up and moving around. This is mostly limited by her pain. She is much more comfortable laying flat or in her recliner. She does ambulate back and forth to the bathroom, and her goal is to remain ambulatory. 3. Depression. Patient continues with feelings of grief and loss, we have discussed initiating antidepressant in the past, she remains reticent secondary to her high pill burden. She is currently being supported by the palliative care database marketing analyst, and finds this helpful with coping. 4. Metastatic breast cancer. She will currently have her oral chemotherapy on hold, unclear what the plan is moving forward as they have had difficulty with her Port-A-Cath. We will continue to follow. 5. Advanced care planning. Patient does have POLST in place, with DNA R/selective treatment. Her current goals include pursuing radiation for improved pain control, to remain as independent as possible regarding her functional status, and continue on with active treatment for her breast cancer. Time Spent: 30 minutes with greater than 50% of this done in counseling regarding pain control and coordination of care. Anticipatory guidance and continue exploration of goals.
[2019-05-24] MEDS: INSULIN GLARGINE 300 UNIT/3 ML PEN SUBQ SCH (21:15)
[2019-05-25 05:42] LABS: BASOPHILS % (AUTO) 0.2 %; EOSINOPHILS # (AUTO) 0.2 10^3/uL (0.0-0.7); EOSINOPHILS % (AUTO) 4.1 %; HGB - HEMOGLOBIN 9.3 g/dL (12.0-16.0); LYMPHOCYTES # (AUTO) 0.6 10^3/uL (1.5-3.5); LYMPHOCYTES % (AUTO) 12.5 %; MEAN CORPUSCULAR HEMOGLOBIN 31.1 pg (27.0-31.0); MEAN CORPUSCULAR HGB CONC 30.5 g/dL (32.0-36.0); MEAN PLATELET VOLUME 9.8 fL (7.9-10.8); MONOCYTES # (AUTO) 0.8 10^3/uL (0.0-1.0); MONOCYTES % (AUTO) 16.8 %; NEUTROPHILS % (AUTO) 65.3 %; PLT - PLATELET COUNT 105 10^3/uL (130-450); RED BLOOD COUNT 2.99 10^6/uL (4.20-5.40); RED CELL DISTRIBUTION WIDTH 17.1 % (12.0-15.0); WHITE BLOOD COUNT 4.7 x10^3/uL (4.8-10.8)
[2019-05-25 05:52] LABS: ALBUMIN 2.4 g/dL (3.2-5.5); ALBUMIN/GLOBULIN RATIO 0.8 (1.0-2.2); BILIRUBIN,TOTAL 0.3 mg/dL (0.2-1.0); CALCIUM 8.2 mg/dL (8.5-10.3); CREATININE 0.6 mg/dL (0.4-1.0); MAGNESIUM 1.7 mg/dL (1.7-2.8); TOTAL PROTEIN 5.4 g/dL (6.7-8.2)
[2019-05-25] MEDS: GABAPENTIN 400 MG CAPSULE PO SCH ×2 (06:01→13:01)
[2019-05-25] MEDS: SODIUM CHLORIDE FLUSH 0.9% 10 ML SYRINGE IVP SCH ×2 (06:03→08:23)
[2019-05-25 07:41] VITALS: BP 131/56
[2019-05-25] MEDS: INSULIN ASPART 300 UNIT/3 ML PEN SUBQ SCH ×4 (08:18→12:56)
[2019-05-25] MEDS: CARVEDILOL 12.5 MG TABLET PO SCH (08:20)
[2019-05-25] MEDS: ENOXAPARIN 40 MG/0.4 ML SYRINGE SUBQ SCH (08:20)
[2019-05-25] MEDS: CALCIUM CARB (OYSTER SHELL) 500 MG TABLET PO SCH (08:21)
[2019-05-25] MEDS: HYDROcod/ACETAM 5/325 MG TABLET PO PRN (08:21)
[2019-05-25] MEDS: FAMOTIDINE 20 MG TABLET PO SCH (08:21)
[2019-05-25] MEDS: MAGNESIUM OXIDE 400 MG TABLET PO SCH (08:21)
[2019-05-25] MEDS: METHADONE 5 MG TABLET PO SCH (08:22)
[2019-05-25] MEDS: CHOLECALCIFEROL 5,000 UNIT CAPSULE PO SCH (08:22)
[2019-05-25] MEDS: amLODIPine 5 MG TABLET PO SCH (08:22)
[2019-05-25] MEDS: ONDANSETRON 4 MG/2 ML VIAL IVP PRN (08:23)
[2019-05-25] MEDS: SODIUM CHLORIDE FLUSH 0.9% 10 ML SYRINGE IVP PRN (08:23)
[2019-05-25] MEDS: POLYETHYLENE GLYCOL 3350 17 GM PACKET PO SCH (08:23)
[2019-05-25] MEDS ORDERED: FUROSEMIDE 40 MG TABLET PO SCH (09:00)
[2019-05-25] MEDS: cefTRIAXone 2 GM in SODIUM CHLORIDE 0.9% MINIBAG 100 ML IV SCH (10:09)
--- NOTE | 2019-05-25 12:49 | Discharge Plan ---
Discharge Plan Problem Reviewed?: Yes Disposition: Home Health Service Condition: Poor Prescriptions: cefUROXime axetil [Ceftin] 500 mg PO Q12H #14 tablet Methadone 2.5 mg PO DAILY PRN #7 tablet PRN Reason: Pain Diet: Diabetic Activity Restrictions: Activity as Tolerated Shower Restrictions: No (fall precaution) Instruction Topics: UTI, Methadone tablets, Cefuroxime tablets Health Concerns: UTI Plan of Treatment: UTI is treated with Ceftin according UA culture and sensitivity study. Palliative care recommend Methadone for your pain control Care Goals: stabilization of your medical conditions Assessment: as the above Additional Instructions or Follow Up instructions: you may followup your PCP in one week, followup your oncologist and [facility] clinic appointment as your schedule. Should your symptoms return or worsen, you may present ER, call 911 or your PCP for help. Follow-Up Care: Home Health - PT No Smoking: If you smoke, Please STOP! Call for help. Follow-up with: Sahil Hatfield DO [Primary Care Provider] -
--- NOTE | 2019-05-25 13:04 | DISCHARGE SUMMARY ---
Discharge Summary Discharge Date: 05/25/19 Discharging Provider: THOMSON Primary Care Provider: Condition at Discharge: Poor Discharge Disposition: Home Health Service Discharge Facility Name: home - DIAGNOSES Admission Diagnoses: (1) UTI (urinary tract infection) (2) Fever (3) Breast cancer metastasized to bone (4) Diabetes mellitus with hyperglycemia (5) Pathologic compression fracture of spine (6) Osteoporosis (7) Obesities, morbid (8) History of asthma Discharge Diagnoses with Status of Each Condition: (1) UTI (urinary tract infection) UA culture reveals gram negative Dio E.coli is found, sensitivity study show to sensitive to Ceftin. pt is prescribed Ceftin (2) sepsis with Fever resolved. pt has no more fever, hemodynamic stable after treatment. blood culture is negative. pt was found to have fever, slight tachycardia, low WBC. although blood culture is negative, UA culture reveals positive for E.coli. (3) Breast cancer metastasized to bone continue followup [facility] and her oncologist. pt had palliative care consulted (4) Diabetes mellitus with hyperglycemia glucose is controlled, followup home regimen and PCP (5) Pathologic compression fracture of spine continue pain control. PT evaluated and treated pt. home health PT is arranged for pt (6) Osteoporosis continue home meds vital D3 and calcium drugs fall precaution.home health PT is arranged for pt (7) Obesities, morbid Conclusion/Plan: pt's BMI is 51, advise pt loss of weight, continue support pt (8) History of asthma Conclusion/Plan: pt has hx of asthma with obese. now she is stable resume home meds regimen - HPI History of Present Illness: Ana Pendleton is a morbidly obese 71-year old white female with a past medical history of ashtma, obese, diabetes mellitus type 2, breast cancer stage 4 with mets to the bone, for which she is on palliative chemotherapy through the [facility] clinic, stable aortic stenosis, and frequent UTIs, osteoporosis, who present ER complain of fever since yesterday with nausea, and vomiting. she report she had fever today at home with 104 degree. she denies cough, wheezing, shortness of breath, chest pain. Then she report she had once of nausea and vomiting. She d enies abdominal pain, dysuria or hematuria. UA analysis reveal pt has positive UTI. two view of CXR indicate pt have no pneumonia. Lab test reveals pt has hyperglycemia at glucose level 293, elevated lactic acid level at 2.5 and slight elevated liver enzyme. pt is afebrile and hemodynamic stable now in ER. pt is admitted for above medical reason. - HOSPITAL COURSE Hospital Course: pt was admitted for fever and UTI. pt was treated with antibiotics. pt also was treated and evaluated by PT. UA culture reveals positive of E.coli, and sensitive to Ceftin. After treatment, then pt has no more fever, blood culture is negative. PT recommend home health PT for pt. pt is prescribed antibiotics Ceftin and home health PT d/c home - ALLERGIES Allergies/Adverse Reactions: Allergies Allergy/AdvReac Type Severity Reaction Status Date / Time Latex, Natural Rubber Allergy Mild Itching Verified 05/23/19 14:29 erythromycin base AdvReac Severe Itching Verified 05/23/19 14:29 [Erythromycin Base] ketamine AdvReac Severe Hallucinati Verified 05/23/19 14:29 ons codeine [Codeine] AdvReac Anxiety Verified 05/23/19 14:29 oxycodone AdvReac Nausea Verified 05/23/19 14:29 - MEDICATIONS Home Medications: Ambulatory Orders Medication Instructions Recorded Confirmed Carvedilol 6.25 mg PO BID 06/13/13 05/23/19 Insulin Glargine,Hum.rec.anlog 45 unit SQ QPM 05/13/14 05/23/19 [Lantus] Insulin Aspart [Novolog] 10 units SQ TIDWM 02/17/15 05/24/19 Ondansetron HCl [Zofran] 4 - 8 mg PO Q6H PRN 10/01/15 05/23/19 Albuterol Sulfate [Proair 2 puffs INH Q4H PRN 12/03/17 05/23/19 Respiclick] Fluticasone/Vilanterol [Breo 1 puffs INH DAILY PRN MDD 12/03/17 05/24/19 Ellipta 200-25 Mcg INH] exacerbation amLODIPine [Norvasc] 5 mg PO DAILY #30 tablet 12/06/17 05/23/19 Methocarbamol 1,000 mg PO Q8HR PRN MDD titrating 02/13/18 05/23/19 down Omeprazole 40 mg PO QDAC 04/20/18 05/23/19 Acetaminophen [Tylenol Extra 1,000 mg PO Q8H PRN 03/19/19 05/23/19 Strength] Calcium Carbonate [Calcium] 500 mg PO DAILY 03/19/19 05/23/19 Cholecalciferol (Vitamin D3) 6,000 unit PO DAILY 03/19/19 05/23/19 [Vitamin D3] Cyclophosphamide 50 mg PO DAILY 03/19/19 05/23/19 Furosemide 40 mg PO DAILY 03/19/19 05/23/19 Hydrocodone/Acetaminophen [[place] 1 tab PO Q6HR PRN 03/19/19 05/23/19 5-325 Tablet] Methotrexate 2.5 mg PO .BID /Tue03/19/19 05/23/19 Scopolamine 1 patch TD Q3D PRN 03/19/19 05/23/19 Meloxicam 7.5 mg PO BID 03/21/19 05/23/19 Gabapentin [Neurontin] 1,200 mg PO TID 05/23/19 05/23/19 Insulin Aspart [Novolog] 1 - 3 unit SUBQ .SLIDINGSCALE 05/23/19 05/23/19 Methadone 2.5 mg PO DAILY PRN #7 tablet 05/25/19 cefUROXime axetil [Ceftin] 500 mg PO Q12H #14 tablet 05/25/19 - PHYSICAL EXAM AT DISCHARGE General Appearance: positive: No acute distress, Alert. negative: Lethargic Eyes Bilateral: positive: Normal inspection, PERRL, No lid inflammation, Conjunctivae nml ENT: positive: ENT inspection nml, Pharynx nml, No signs of dehydration. negative: Purulent nasal drainage, Pharyngeal erythema, Oral lesions Neck: positive: Nml inspection, Thyroid nml, No JVD, Trachea midline. negative: Thyromegaly, Lymphadenopathy (R), Lymphadenopathy (L), Stiff neck, Swelling/bruising, Tracheal deviation Respiratory: positive: Chest non-tender, No respiratory distress. negative: Wheezes, Rales, Rhonchi Cardiovascular: positive: Regular rate & rhythm, No murmur, No gallop. negative: Irregularly irregular, Extrasystoles, Tachycardia, Bradycardia, JVD present, Systolic murmur, Diastolic murmur Peripheral Pulses: positive: 2+ Abdomen: positive: Non-tender, No organomegaly, Nml bowel sounds, No distention. negative: Tenderness, Guarding, Rebound Back: positive: Nml inspection. negative: CVA tenderness (R), CVA tenderness (L) Skin: positive: Color nml, No rash, Warm, Dry. negative: Cyanosis, Diaphoresis, Pallor Extremities: positive: Non-tender. negative: Calf tenderness, Joint swelling, Thierno's sign/cords Neurologic/Psychiatric: positive: Oriented x3, Sensation nml, Mood/affect nml. negative: Weakness, Sensory loss, Facial droop, Slurred/abnml speech, Depressed mood/affect - LABS Result Diagrams: 05/25/19 05:00 05/25/19 05:00 - SEPSIS Current Stage of Sepsis: Sepsis Possible source of Sepsis: Genitourinary Sepsis Criteria: Recorded Temperature greater than 38.3C or Less than 36C, Recorded Heart Rate greater than 90 bpm - FOLLOW UP Follow Up: you may followup your PCP in one week, followup your oncologist and [facility] clinic appointment as your schedule. Should your symptoms return or worsen, you may present ER, call 911 or your PCP for help. - TIME SPENT Time Spent in Discharge (Minutes): 50
== END 2019-05-25 13:53 | disposition home health service (06) | DRG 872 ==
LOC: EDUNIT# → ED 14:17 → MS2 16:43
PROVIDERS: ADMIT Nurse Practitioner Gerontology; ATTEND Nurse Practitioner Gerontology
DX: A41.9 Sepsis, unspecified organism (principal); A41.51 Sepsis due to Escherichia coli [E. coli]; N10 Acute pyelonephritis; C79.51 Secondary malignant neoplasm of bone; I10 Essential (primary) hypertension; E11.9 Type 2 diabetes mellitus without complications; Z68.43 Body mass index [BMI] 50.0-59.9, adult; C50.919 Malignant neoplasm of unspecified site of unspecified female breast; E11.65 Type 2 diabetes mellitus with hyperglycemia; E66.01 Morbid (severe) obesity due to excess calories; G89.3 Neoplasm related pain (acute) (chronic); M84.58XD Pathological fracture in neoplastic disease, other specified site, subsequent encounter for fracture with routine healing; M84.559D Pathological fracture in neoplastic disease, hip, unspecified, subsequent encounter for fracture with routine healing; M80.059 Age-related osteoporosis with current pathological fracture, unspecified femur; M80.08XD Age-related osteoporosis with current pathological fracture, vertebra(e), subsequent encounter for fracture with routine healing; I11.0 Hypertensive heart disease with heart failure; I50.9 Heart failure, unspecified; I35.0 Nonrheumatic aortic (valve) stenosis; J45.909 Unspecified asthma, uncomplicated; F32.9 Major depressive disorder, single episode, unspecified; Z51.5 Encounter for palliative care; Z66 Do not resuscitate; Z79.899 Other long term (current) drug therapy; Z79.4 Long term (current) use of insulin; Z79.51 Long term (current) use of inhaled steroids; Z90.10 Acquired absence of unspecified breast and nipple; Z95.828 Presence of other vascular implants and grafts; Z79.891 Long term (current) use of opiate analgesic; Z87.2 Personal history of diseases of the skin and subcutaneous tissue; Z92.3 Personal history of irradiation
CPT/HCPCS: 36415; 71045; 71046; 80053; 81001; 83036; 83605; 83690; 83735; 85025; 87040; 87077; 87086; 87181; 96361; 96374; 97162; 97530; 99232; 99283; 99285; A9270; J1170; J1650; J1815; 81003

== ENCOUNTER 2019-06-01 10:50 | Outpatient (CLI) | payer MEDICARE, OTHER ==
[2019-06-01 19:01] LABS: BILIRUBIN,URINE NEGATIVE (NEGATIVE); GLUCOSE, URINE (UA) NEGATIVE (NEGATIVE); KETONES,URINE (UA) NEGATIVE (NEGATIVE); LEUKOCYTE ESTERASE, URINE SMALL (NEGATIVE); NITRITE,URINE NEGATIVE (NEGATIVE); OCCULT BLOOD,URINE NEGATIVE (NEGATIVE); PROTEIN,URINE NEGATIVE (NEGATIVE); UROBILINOGEN,URINE 0.2 (NORMAL) E.U./dL (NORMAL)
[2019-06-01 19:17] LABS: CLARITY,URINE HAZY (CLEAR)
[2019-06-01 19:27] LABS: BACTERIA,URINE Few /HPF (None Seen); RBC,URINE 0-5 /HPF (0-5); SQUAMOUS EPITHELIAL CELL,UR FEW Squamous (<= Few); WBC CLUMPS,URINE PRESENT; YEAST,URINE PRESENT
== END 2019-06-01 10:51 | disposition home or self-care (01) ==
LOC: LAB.WCP 10:50
PROVIDERS: ATTEND Family Medicine
DX: N39.0 Urinary tract infection, site not specified (principal)
CPT/HCPCS: 81001; 81003; 87086

== ENCOUNTER 2019-06-11 13:49 | Outpatient (CLI) | payer MEDICARE, OTHER ==
--- NOTE | 2019-06-12 23:51 | XRAY Report ---
Reason: PORT FEELS LIKE IT HAS FLIPPED Procedure Date: 06/11/2019 Accession Number: [id number] / [id number] Procedure: XR - Chest 2 View X-Ray CPT Code: 71027 FULL RESULT: EXAM: CHEST RADIOGRAPHY EXAM DATE: 06/11/2019 01:38 PM. CLINICAL HISTORY: PORT FEELS LIKE IT HAS FLIPPED. COMPARISON: CHEST 2 VIEW 05/23/2019 4:46 PM. TECHNIQUE: 2 views. FINDINGS: Lungs/Pleura: No focal opacities evident. No pleural effusion. No pneumothorax. Normal volumes. Mediastinum: Stable cardiomegaly. Other: Right Port-A-Cath central line with the tip in the proximal right atrium. Image artifact. Upper abdomen surgical clips. IMPRESSION: Stable cardiomegaly. Right Port-A-Cath central line with the tip in the proximal right atrium. RADIA
== END 2019-06-11 13:50 | disposition home or self-care (01) ==
LOC: DI 13:49
PROVIDERS: ATTEND Internal Medicine Hematology & Oncology
DX: Z85.3 Personal history of malignant neoplasm of breast (principal)
CPT/HCPCS: 71046

== ENCOUNTER 2019-06-25 13:00 | Outpatient (CLI) | payer MEDICARE, OTHER | END 2019-06-25 13:01 | disposition home or self-care (01) | LOC: SC 13:00 | PROVIDERS: ATTEND Internal Medicine Pulmonary Disease | DX: Z53.9 Procedure and treatment not carried out, unspecified reason (principal) ==

== ENCOUNTER 2019-06-28 10:40 | Outpatient (CLI) | payer MEDICARE, OTHER | END 2019-06-28 10:41 | disposition critical access hospital (66) | LOC: EMS 10:40 | PROVIDERS: ATTEND Surgery | DX: M79.621 Pain in right upper arm (principal) | CPT/HCPCS: A0425; A0429 ==

== ENCOUNTER 2019-06-28 10:58 | Emergency (ER) | payer MEDICARE, OTHER ==
[2019-06-28] MEDS ORDERED: HYDROmorphone 1 MG/ML CARPUJECT IVP STA (11:06)
--- NOTE | 2019-06-28 11:36 | ED Physician Documentation ---
PD HPI UPPER EXT INJURY - Stated complaint Stated Complaint: ARM PX - Chief complaint Chief Complaint: Ext Problem - History obtained from History obtained from: Patient - History of Present Illness Location: Right, Arm Type of injury: Other (states pulling up her pants and felt a snap in her R distal humerus. known metastatic tumor at that site.) Where injury occurred: Home Timing - onset: Today Timing - duration: Hours (1) Timing - details: Abrupt onset Pain level max: 10 Pain level now: 10 Improved by: Rest, Ice, Immobilization Worsened by: Moving, Palpating Associated symptoms: No: Weakness, Numbness, Tingling, Swelling Recently seen: Not recently seen Review of Systems Constitutional: denies: Fever, Chills GI: denies: Vomiting Skin: denies: Rash, Lesions Musculoskeletal: denies: Neck pain, Back pain Neurologic: denies: Headache PD PAST MEDICAL HISTORY - Past Medical History Cardiovascular: Hypertension Respiratory: Asthma Neuro: None Endocrine/Autoimmune: Type 2 diabetes GI: None 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 : Frequency Psych: None Musculoskeletal: Osteoarthritis, Osteoporosis, Osteopenia, Fatigue, Chronic back pain Derm: None - Past Surgical History Past Surgical History: Yes /LAP CUTTER TRUER OPERATOR: Mastectomy - Present Medications Home Medications: Ambulatory Orders Medication Instructions Recorded Confirmed Carvedilol 6.25 mg PO BID 06/13/13 06/11/19 Insulin Glargine,Hum.rec.anlog 45 unit SQ QPM 05/13/14 06/11/19 [Lantus] Insulin Aspart [Novolog] 10 units SQ TIDWM 02/17/15 06/11/19 Ondansetron HCl [Zofran] 4 - 8 mg PO Q6H PRN 10/01/15 06/11/19 Albuterol Sulfate [Proair 2 puffs INH Q4H PRN 12/03/17 06/11/19 Respiclick] Fluticasone/Vilanterol [Breo 1 puffs INH DAILY PRN MDD 12/03/17 06/11/19 Ellipta 200-25 Mcg INH] exacerbation amLODIPine [Norvasc] 5 mg PO DAILY #30 tablet 12/06/17 06/11/19 Methocarbamol 1,000 mg PO Q8HR PRN MDD titrating 02/13/18 06/11/19 down Omeprazole 40 mg PO QDAC 04/20/18 06/11/19 Acetaminophen [Tylenol Extra 1,000 mg PO Q8H PRN 03/19/19 06/11/19 Strength] Calcium Carbonate [Calcium] 500 mg PO DAILY 03/19/19 06/11/19 Cholecalciferol (Vitamin D3) 6,000 unit PO DAILY 03/19/19 06/11/19 [Vitamin D3] Cyclophosphamide 50 mg PO DAILY 03/19/19 06/11/19 Furosemide 40 mg PO DAILY 03/19/19 06/11/19 Hydrocodone/Acetaminophen [Hale 1 tab PO Q6HR PRN 03/19/19 06/11/19 5-325 Tablet] Methotrexate 2.5 mg PO .BID TH/Tue03/19/19 06/11/19 Scopolamine 1 patch TD Q3D PRN 03/19/19 06/11/19 Meloxicam 7.5 mg PO BID 03/21/19 06/11/19 Gabapentin [Neurontin] 1,200 mg PO TID 05/23/19 06/11/19 Insulin Aspart [Novolog] 1 - 3 unit SUBQ .SLIDINGSCALE 05/23/19 06/11/19 Methadone 2.5 mg PO DAILY PRN #7 tablet 05/25/19 06/11/19 fentaNYL [Fentanyl 12mcg patch] 1 patch TD Q3D 06/11/19 06/11/19 - Allergies Allergies/Adverse Reactions: Allergies Allergy/AdvReac Type Severity Reaction Status Date / Time Latex, Natural Rubber Allergy Mild Itching Verified 05/23/19 14:29 erythromycin base AdvReac Severe Itching Verified 05/23/19 14:29 [Erythromycin Base] ketamine AdvReac Severe Hallucinati Verified 05/23/19 14:29 ons codeine [Codeine] AdvReac Anxiety Verified 05/23/19 14:29 oxycodone AdvReac Nausea Verified 05/23/19 14:29 - Social History Does the pt smoke?: No Smoking Status: Never smoker Does the pt drink ETOH?: No Does the pt have substance abuse?: No - Immunizations Immunizations are current?: Yes - POLST Patient has POLST: Yes PD ED PE NORMAL - Vitals Vital signs reviewed: Yes - General General: Alert and oriented X 3, No acute distress - HEENT HEENT: Moist mucous membranes - Neck Neck: Supple, no meningeal sign - Derm Derm: Warm and dry - Extremities Extremities: Other (Tender to palpation right distal humerus. No significant swelling. No bruising. Neurovascularly intact. No gross deformity.) - Neuro Neuro: Alert and oriented X 3 Results - Vitals Vitals: Vital Signs - 24 hr 06/28/19 06/28/19 11:00 13:50 Temperature 36.6 C 37.1 C Heart Rate 88 89 Respiratory 16 16 Rate Blood Pressure 126/48 L 127/69 O2 Saturation 97 96 Oxygen O2 Source Room air - Rads (name of study) Right humerus x-ray Radiology: Prelim report reviewed, EMP read contemporaneously, See rad report (Nondisplaced fracture, distal metaphysis near the expansile lesion) Procedures - Splint (location) Right arm Splint applied by: Physician, Thao Type of splint: Long arm, Posterior Other: Patient tolerated well, No complications, Neurovascular intact, Sling provided PD MEDICAL DECISION MAKING - ED course Complexity details: reviewed results, considered differential, d/w patient, d/w family ED course: 73-year-old female with metastatic cancer has a expansile lesion in the distal humerus on the right side. There appears to be a nondisplaced fracture at the site today. Placed in a posterior splint for comfort. Neurovascular intact. Pain well controlled. Has pain medication home. We will follow-up with her doctor for further care. Patient counseled regarding signs and symptoms for which I believe and urgent re-evaluation would be necessary. Patient with good understanding of and agreement to plan and is comfortable going home at this time This document was made in part using voice recognition software. While efforts are made to proofread this document, sound alike and grammatical errors may occur. Departure - Departure Disposition: 01 Home, Self Care Clinical Impression: Right humeral fracture Qualifiers: Encounter type: initial encounter Humerus Location: distal Fracture type: closed Fracture morphology: other fracture Fracture alignment: nondisplaced Qualified Code(s): S42.494A - Other nondisplaced fracture of lower end of right humerus, initial encounter for closed fracture Condition: Good Instructions: ED Fx Upper Ext Follow-Up: Sahil Hatfield DO [Primary Care Provider] - [facility] [Provider Group] - Within 1 week Comments: Return if you worsen. Follow-up with your doctor for further care. You should follow-up with orthopedics in 1 week for repeat evaluation of your arm. Keep the splint in place. Discharge Date/Time: 06/28/19 13:50
--- NOTE | 2019-06-28 11:45 | XRAY Report ---
Reason: R arm pain, known tumor Procedure Date: 06/28/2019 Accession Number: [id number] / [id number] Procedure: XR - Humerus RT CPT Code: FULL RESULT: EXAM: RIGHT HUMERUS RADIOGRAPHY EXAM DATE: 06/28/2019 11:12 AM. CLINICAL HISTORY: Right arm pain, known tumor. Left breast cancer. COMPARISON: BONE SCAN 11/01/2018 12:20 PM. TECHNIQUE: 2 views. FINDINGS: Bones: Expansile lytic multicentric lesion at the distal humeral metadiaphysis. The margin between the lytic lesion in humeral diaphysis centrally is not well defined. No definite fracture is seen. Joints: Shoulder demonstrates degenerative changes. No definite subluxation. Soft Tissues: Normal. No soft tissue swelling. IMPRESSION: Bone lesion as described. No fracture is seen as visualized. RADIA ADDENDUM: 06/28/19 12:07 In review with the referring physician, there is focal tenderness in the region of the expansile lesion with irregularity about the cortex and jagged line likely representing a nearly nondisplaced fracture in this setting. Study is therefore considered positive for pathologic fracture.
[2019-06-28 13:50] VITALS: BP 127/69
== END 2019-06-28 13:50 | disposition home or self-care (01) ==
LOC: EDUNIT# → ED 10:58
DX: M84.421A Pathological fracture, right humerus, initial encounter for fracture (principal); C79.51 Secondary malignant neoplasm of bone; I10 Essential (primary) hypertension; E11.9 Type 2 diabetes mellitus without complications; Z79.4 Long term (current) use of insulin
CPT/HCPCS: 29105; 73060; 96374; 99283; 99284; J1170

== ENCOUNTER 2019-06-29 15:15 | Outpatient (CLI) | payer MEDICARE, OTHER ==
--- NOTE | 2019-06-29 18:55 | CONSULTATION NOTE ---
Palliative Care Follow Up - Referral Referring Provider: Dr. Patricia Hatfield Time of Visit: [id number] Referral setting: Home Referral Reason: Metastatic Breast Cancer to the bones/right humerus fx/Uncontrolled pain - Information Sources Records reviewed: Previous records reviewed History/Review of Systems obtained from: Patient, Family ( Richie at visit, his brother is here to support) Exam limitations: No limitations - History of Present Illness Update Brief HPI Update: This is a devin 73-year-old woman who has metastatic breast cancer with extensive and widely metastatic multiple symptomatic bone metastasis. She has a very long complicated history regarding her acute and escalating pain, her history includes in December being hospitalized that she was found to have an L4 burst fracture, and did receive an L4 kyphoplasty. Unfortunately she has continued during this time to have a series of unfortunate events, which include multiple hospitalizations and SNF stays, and final return home in March. Patient that point in time was put on oral chemotherapy of Cytoxan and methotrexate, she does have a port, with the thought of changing treatment in the future. Patient has been extensively treated since her initial diagnosis in 2015. Patient does have a history of respiratory failure, this was attributed to oversedation with pain medications, she has a history of multiple and recurrent UTIs, most likely attributed to her estrogen blockage. She has been with palliative care since September 2017, she remains quite challenging in the context she has poor opioid tolerance. Most recently patient presented yesterday with an acute fracture of her right humerus. She reports she was just pulling up her pants, and it snapped. She does recall the previous day, when she was in radiation, and they had put a lot of stress on her shoulder and area as far as positioning. She now has it wrapped and splinted, she reports her pain is a 10 out of 10, has been very difficult managing her toileting, she she is mostly bedbound though is in a recliner, and is quite tearful and overwhelmed. In the context of her opioid intolerance, patient has been managed mostly on gabapentin 1200 mg 3 times daily, she has had intermittent spasms with her panting and used meth O carbinol, we have been titrating her down, she did use some last night with her right shoulder spasms with relief. She is on fentanyl, we have been titrating up that slowly, she has managed to be able to tolerate it with some improvement in her pain management with comanagement with scopolamine patch. She has been using Vicodin 2 tabs 4 times a day with her acute pain exacerbation, and she had been going to radiation to her pelvis and sacral area, and had had some relief with that. She is also receiving radiation to her ribs, with that has had some side effects of esophagitis, and increased nausea as a result of including her abdominal area in the radiation field. She does not attribute this directly to her pain meds at this time. We have trialed Hydromorphone 2 mg in the past, she did use one today secondary to her acute and escalating pain, she reports it did help more acutely, but did leave her quite loopy. She did not notice any increase in her nausea or vomiting, she does present with anorexia and feeling poorly overall. Her current fentanyl dosing is 37 mcg, we did increase this on last Tuesday, after much discussion, in hopes not to escalate her severe n/v. Patient originally was trialed on methadone, small dose in hopes to be able to build some tolerance, but was unable to tolerate after a couple of tries. She is using CBD oil and finds this effective, though with her financial stressors she is unable to afford more than 1 time a day. Is a thing she found effective, was when her niece who gifted her with 3 acupuncture treatments treated her. She was unable to get covered by insurance, was quite disappointed that she did feel that it did help her pain levels. Patient's other comorbidities include sleep apnea, she is currently on oxygen nocturnally, she did have a pending appointment with the sleep clinic. She also has known aortic stenosis, history of CHF, diabetes type 2 on insulin, asthma, and morbid obesity. Discussed with patient follow-up conversation with prior to my visit. He reports given her pathologic fracture, decrease in functional status, and overall decline she would no longer be a candidate for further chemotherapy or treatment support. He strongly recommended hospice. We did discuss in the context of her risk with her new pathologic fracture, risk of further fractures, with pending radiation nex week. Given patient's high level of pain, poor mobil ity, he felt medications as far as benefit vs risk, were more appropriate, this was shared with both patient and . Social History - Living Situation Living arrangement: At home Living Situation: With spouse/s.o. Support System: Patient and her are quite devoted to each other, has had increasing health problems with his cardiac status and diabetes. She does report he is having some early signs and symptoms of cognitive decline and dementia. He has had increased irritability and feels like he is probably exhausted with all her care needs. Patient's and brother is there to help support both patient and , he has been a caregiver in the past as well, took care of his father on hospice. Patient is a matriarch of her family, she is very distressed about the thought of leaving everyone behind and missing her grandchildren growing up. They [place], have been using a preventive medicine officer lift chair to get her in and out. They have both financial stressors and family stressors. Medications/Allergies - Medications Home Medications: Ambulatory Orders Medication Instructions Recorded Confirmed Carvedilol 6.25 mg PO BID 06/13/13 06/29/19 Insulin Glargine,Hum.rec.anlog 45 unit SQ QPM 05/13/14 06/29/19 [Lantus] Insulin Aspart [Novolog] 10 units SQ TIDWM 02/17/15 06/29/19 Ondansetron HCl [Zofran] 4 - 8 mg PO Q6H PRN 10/01/15 06/29/19 Albuterol Sulfate [Proair 2 puffs INH Q4H PRN 12/03/17 06/29/19 Respiclick] Fluticasone/Vilanterol [Breo 1 puffs INH DAILY MDD exacerbation 12/03/17 06/29/19 Ellipta 200-25 Mcg INH] amLODIPine [Norvasc] 5 mg PO DAILY #30 tablet 12/06/17 06/29/19 Methocarbamol 500 - 1,000 mg PO Q8HR PRN 02/13/18 06/29/19 Omeprazole 40 mg PO BID 04/20/18 06/29/19 Calcium Carbonate [Calcium] 500 mg PO DAILY 03/19/19 06/29/19 Cholecalciferol (Vitamin D3) 6,000 unit PO DAILY 03/19/19 06/29/19 [Vitamin D3] Hydrocodone/Acetaminophen [Amity 1 - 2 tab PO Q4HR PRN 03/19/19 06/29/19 5-325 Tablet] Scopolamine 1 patch TD Q3D PRN 03/19/19 06/29/19 Meloxicam 7.5 mg PO BID 03/21/19 06/29/19 Gabapentin [Neurontin] 1,200 mg PO TID 05/23/19 06/29/19 fentaNYL [Fentanyl 12mcg patch] 50 mcg TD Q3D 06/11/19 06/29/19 Cbd Oil 35 mg PO DAILY 06/29/19 HYDROmorphone [Dilaudid] 2 mg PO Q3HR PRN 06/29/19 06/29/19 Ipratropium/Albuterol [Duoneb] 1 vial INH Q6HR PRN 06/29/19 06/29/19 Polyethylene Glycol 3350 [Miralax] 17 gm PO DAILY PRN 06/29/19 06/29/19 - Allergies Allergies/Adverse Reactions: Allergies Allergy/AdvReac Type Severity Reaction Status Date / Time Latex, Natural Rubber Allergy Mild Itching Verified 05/23/19 14:29 erythromycin base AdvReac Severe Itching Verified 05/23/19 14:29 [Erythromycin Base] ketamine AdvReac Severe Hallucinati Verified 05/23/19 14:29 ons codeine [Codeine] AdvReac Anxiety Verified 05/23/19 14:29 oxycodone AdvReac Nausea Verified 05/23/19 14:29 Review of Systems - Constitutional Constitutional: reports: Fatigue, Weakness, Poor appetite, Weight stable (300). denies: Fever, Chills - Eyes Eyes: reports: Vision loss, Corrective lenses - Ears, Nose & Throat Ears, Nose & Throat: reports: Dry mouth - Cardiovascular Cardiovascular: reports: Decr. exercise tolerance. denies: Chest pain, Edema - Respiratory Respiratory: reports: SOB with exertion. denies: Cough - Gastrointestinal Gastrointestinal: reports: Nausea, Vomiting (last night), Reflux/heartburn (worsening with radiation;), Poor appetite, Early satiety. denies: Constipation (bm yesterday) - Genitourinary Genitourinary: reports: Incontinence. denies: Dysuria - Musculoskeletal Musculoskeletal: reports: Muscle pain, Back pain, Muscle aches, Stiffness, Limited range of motion, Muscle weakness, Transfer issues (max assist and painful transfer) - Integumentary Integumentary: reports: Dryness, Other (chronic skin issues on coccyx) - Neurological Neurological: reports: General weakness - Psychiatric Psychiatric: reports: Depression, Anxiety - Endocrine Endocrine: reports: Diabetes type 2 - Hematologic/Lymphatic Hematologic/Lymphatic: reports: Anemia, Recurrent infections (UTIs; urosepsis admit 05/24) - All Other Systems All Other Systems: reports: Reviewed and negative Physical Exam - Vital Signs Temperature: 96.9 C Pulse Rate: 90 Respiratory Rate: 18 O2 Saturation: 97 (ra @ rest; uses oxygen at night) Blood Pressure: 142/70 - Physical Exam General Appearance: positive: Moderate distress, Anxious Eyes Bilateral: positive: Normal inspection ENT: positive: Dry mucous membranes. negative: Oral lesions Neck: positive: Trachea midline Cardiovascular: positive: Regular rate & rhythm Respiratory: positive: No respiratory distress Abdomen: positive: Soft, Obese Skin: positive: Pallor, Dryness, Pressure wound (on coccyx; in recliner did not have get up) Extremities: positive: No pedal edema Neurologic/Psychiatric: positive: Oriented x3, Other (tearful through visit) Palliative Care - POLST Patient has POLST: Yes POLST Status: DNR, Selective Treatment Pain: Pain worsening, Location (Is in her right humeral area, worsening with any kind of movement or pressure. She does have baseline pain in her hips and leg, but is in acute distress.) Tiredness/Fatigue: Severe (7-10) Drowsiness/Sedation: Mild (1-3) Nausea: Moderate (4-6) Depression: Moderate (4-6) Anxiety: Moderate (4-6) Constipation: Intermittent constipation (patient with radiation to the pelvis; has not had to take bowel meds; aware with stopping of radiation will need to restart Miralax; last BM yesterday) Feelings of wellbeing/Perceived Quality of Life: Poor, Worsening Performance Status: Patient is stuck in her recliner, they have done a transfer to the bariatric commode with significant amount of pain and yelling out. This is quite stressful for her . Patient's previous level of function though quite limited, was able to ambulate a few steps, and transfer to wheelchair and has been sleeping in her bed. Patient has been receiving sponge baths, her is helping her wash her hair off the bed. Patient's already limited performance status now has diminished greatly with her acute injury. I would put her at a PPS of 40% - Palliative Care Discussion: Patient is quite tearful and upset, she does not want to "give up", she is extended her treatment for multiple years, has put up with significant pain and disability, and would continue to make that choice if possible. We did discuss the conversation with Dr. Bonilla, That at this point in time treatment would provide more harm than good, and his recommendation to transition to hospice. She has been quite resistant, though has had multiple conversations with the radiation oncology, her medical oncologist, her primary care as well as her palliative care team. She very much is a matriarch of her family and is not wanting to leave them or miss out on their future. She is "knew this day is coming". We did discuss the fracture is not the cause of her , but is signal of the ongoing pathology and progression of her disease, she really does want to at home and not in the hospital. Given her frailty, her high risk for sacral or more pelvic fractures, would not recommend ongoing radiation or leaving the home setting unless things dramatically improved. We then included her and [id number] in the conversation. has been is quite upset and angry that there is not anything we can do to make her better, and gets very distressed when she is having severe pain and we cannot "fix it". They have worked very hard at obtaining equipment, frustrated with the system, and the limitations they have run against. Ana is quite aware, that his anger is most likely directed at the fact that she is dying in the future. Counseling provided regarding hoping for the best, improved pain management, time for her family and ability to say goodbye. Encouraged to reframe and thinking about hospice is supporting living in this twilight zone, her goals are to improve with her quality and hoping for some quantity of life. Initiated and introduced hospice benefit, and hospice support team, she has been supported by the [employer] Supervisor, and will continue with that relationship. Impression and Recommendations - Palliative Care Impression: This is a devin 73-year-old woman who now presents with a pathologic fracture of her right humerus, Progression of her multiple bone lesions, and escalating acute on chronic pain. Patient has had decline in functional status, now acutely limited, as patient is right-handed. Palliative care with long-term relationship, did discuss in the context of goals of care and recommendations to transition to hospice team, patient is finally in agreement. Recommendations/Counseling Done: 1. Acute on chronic pain. Patient has underlying pain related to her multiple bone mets, she has had some improvement with radiation to her pelvic and left h ip area, as well as ribs. Her most severe pain at this point time is in her right humerus and her nondisplaced fracture site. We will go ahead and and A. Increase her fentanyl to 50 mcg starting tonight. B. Instructed to use Vicodin 1-2 tabs every 4 hours as she had been only using it every 6. She is to discontinue her acetaminophen, as she will be pushing the limits as it is. C. Instructed to trial hydromorphone 2 mg at her comfort level, she can have 1 tab every 3 hours, can titrate up to 2 if tolerated. She has 7 tabs in the home, Will arrange for prescription to go out with hospice admit nurse. This can be dropped off at right aid to continue to trial, there is significant financial stressors. D. Discussion with risk manager, regarding ability to possibly provide acupuncture support. Patient does have an niece who can provide acupuncture in the home, or may need to find one who makes home visits. Will have hospice team follow-up. E. Methocarbamol 500 mg 1-2 up to 3 times a day, she is having some spasms in the neck and shoulder area above the fracture. She has been trying to titrate off of that because of sedation, but will use it as needed. 2. Urinary incontinence. This is related to difficulty with transfers, given patient's acute pain and difficulty with functional status, called to hospice to order bariatric bed, and bariatric commode. They may need OT for transfer training. They have trialed a female urinal, without much success, did offer her Major catheter to ease caregiving burden. Patient is quite hesitant at this point in time, would bring out appropriate briefs. 3. Depression. Patient is quite tearful through visit, she continues now with more acute feelings of grief and loss. She does have underlying persistent depressive symptoms, she has been offered antidepressants and declined in the past. She is currently being supported by the palliative care quality control microbiologist, and finds is helpful with her overall coping. 4. Advanced care planning. Family conference regarding transition to hospice, coordination of care with both primary care Dr. Sahil Hatfield, she we will try and do home visit in the next 1 to 2 weeks, follow-up with Dr. BETTE OBRIEN regarding patient's question if whether or future treatment options, at this point in time the burden without weigh the benefit. Patient does have a POLST in place with DNA R and selective treatments, would not revisit at first visit. Psychosocial support given and acknowledgment of having difficult this transition is for her. Time Spent: 75 minutes with greater than 50% of this done in counseling regarding pain and symptom management, transition to hospice, coordination of care with primary care, oncologist, and hospice team
== END 2019-06-29 15:16 | disposition home or self-care (01) ==
LOC: PC 15:15
PROVIDERS: ATTEND Nurse Practitioner Adult Health
DX: Z51.5 Encounter for palliative care (principal); C50.919 Malignant neoplasm of unspecified site of unspecified female breast; C79.51 Secondary malignant neoplasm of bone; M84.521A Pathological fracture in neoplastic disease, right humerus, initial encounter for fracture; G89.3 Neoplasm related pain (acute) (chronic); E66.9 Obesity, unspecified; M79.7 Fibromyalgia; G47.33 Obstructive sleep apnea (adult) (pediatric); E11.40 Type 2 diabetes mellitus with diabetic neuropathy, unspecified; I35.0 Nonrheumatic aortic (valve) stenosis; Z79.899 Other long term (current) drug therapy; J45.909 Unspecified asthma, uncomplicated; I11.0 Hypertensive heart disease with heart failure; I50.9 Heart failure, unspecified; H54.7 Unspecified visual loss; R32 Unspecified urinary incontinence; R53.1 Weakness; D64.9 Anemia, unspecified; F32.9 Major depressive disorder, single episode, unspecified; Z74.09 Other reduced mobility; Z66 Do not resuscitate; Z79.4 Long term (current) use of insulin; Z79.51 Long term (current) use of inhaled steroids; Z79.891 Long term (current) use of opiate analgesic; Z87.440 Personal history of urinary (tract) infections
CPT/HCPCS: 99350